=== PATIENT | male | born 1950 | race Caucasian/White ===

== ENCOUNTER 2016-02-28 17:45 | Inpatient (IN) ==
--- NOTE | 2016-02-28 17:52 | Emergency Department Note ---
Disposition Clinical Impression: Ascites, Liver cirrhosis, Anemia, Morbid obesity with BMI of 40.0-44.9, adult, End-stage renal disease on hemodialysis, Anemia of chronic disease, Hypoglycemia , Lactic acid acidosis, Diabetes mellitus, Thrombocytopenia, Abnormal EKG, Hypotension Disposition: Admitted As Inpatient Condition: Fair Referrals: NO,PCP [Non-Partnered Physician] - Forms: Work/School Release, ED Satisfaction Letter General Adult HPI - General Chief complaint: ED General Medical Stated complaint: hypotension Time Seen by Provider: 02/28/16 17:49 Source: patient, family Limitations: no limitations - History of Present Illness HPI Narrative: 65-year-old male with multiple medical problems including cirrhosis, chronic recurrent ascites, renal failure on dialysis and diabetic who reports to the emergency department from the outpatient area where he was getting paracentesis. He gets paracentesis on a weekly basis. The patient's blood pressure was low and he was feeling somewhat woozy so they sent the patient to the ED for evaluation. The patient reportedly had a catheterization done yesterday which is ultimate and no coronary stents. The patient is currently not anticoagulated. The patient denies any chest pain or shortness of breath or abdominal pain. There is no history of fever cough runny nose here pain or sore throat. Per the family the patient was dialyzed on Thursday. He had partial dialysis yesterday. There is concern because the patient has had decreased blood pressures and is somewhat symptomatic. He reports he has had have transfusions before. The patient denies any previous cardiac arrhythmia but does have a history of heart failure. There is no history of fall or injury. No headache or difficulty moving the arms or legs independently no unilateral arm or leg weakness or numbness no dysarthria or confusion. Pain Scale: 4 - Related Data Home Medications Medication Instructions Recorded Confirmed Cholecalciferol (Vitamin D3) 2,000 unit PO DAILY 01/08/15 02/27/16 [Vitamin D3] FLUoxetine HCl [Prozac] 20 mg PO QAM 01/08/15 02/27/16 Allopurinol [Zyloprim 100 MG] 50 mg PO DAILY 03/01/15 02/27/16 Calcium Acetate 1,334 mg PO TIDWM 06/19/15 02/27/16 Cyclobenzaprine HCl 10 mg PO TID PRN 06/19/15 02/27/16 Aspirin 81 mg PO DAILY 10/09/15 02/27/16 Ondansetron HCl [Zofran] 4 mg PO Q4-6H PRN 10/12/15 02/27/16 Renal Vitamin [Renal Caps Softgel] 1 mg PO DAILY 12/27/15 02/27/16 Cyclobenzaprine HCl 10 mg PO TID 02/27/16 02/27/16 Previous Rx's Medication Instructions Recorded Midodrine [ProAmatine] 10 mg PO 0800,1200,1700 #90 tablet 10/18/15 Orphenadrine [Norflex] 100 mg PO Q12HR PRN #20 tablet.er 11/18/15 Lactulose 45 ml PO TID 30 Days 01/01/16 Rifaximin [Xifaxan] 550 mg PO BID #60 tablet 01/01/16 TraMADol [Ultram] 50 mg PO QID PRN #20 tablet 01/01/16 Cephalexin [Keflex] 500 mg PO DAILY #5 capsule 02/17/16 Omeprazole [PriLOSEC] 40 mg PO BID #60 capsule. 02/17/16 Sucralfate [Carafate] 1 gm PO TID 30 Days 02/17/16 Allergies Allergy/AdvReac Type Severity Reaction Status Date / Time No Known Allergies Allergy Verified 02/27/16 08:50 All systems ED: reviewed and negative except as stated. Past Medical History - Past Medical History Medical history: Reports: coronary artery disease, CVA, diabetes, renal disease Surgical history: Reports: cholecystectomy, orthopedic, other, vasectomy, other Psychiatric history: Reports: anxiety, depression, PTSD, other - Social History Smoking Status: Never smoker Smokeless Tobacco Status: No Alcohol use: Reports: none Drug use: Reports: none Physical Exam - General Limitations: no limitations General appearance: alert - Head Head exam: atraumatic, normocephalic, normal inspection - Eye Eye exam: Present: PERRL, EOMI, scleral icterus - ENT ENT exam: normal exam, normal oropharynx, mucous membranes moist, normal external ear exam - Neck Neck exam: Present: normal inspection, full ROM, trachea midline - Chest Chest inspection: Present: symmetric chest wall rise. Absent: tenderness - Respiratory Respiratory exam: Present: prolonged expiratory phase. Absent: respiratory distress - Cardiovascular Cardiovascular exam: Present: regular rate, normal rhythm, systolic murmur - Abdominal Exam Abdominal exam: Present: soft, Non-Tender. Absent: tenderness, distention, guarding, rebound, rigidity, pulsatile mass - Extremities Exam Extremities exam: Present: normal inspection, full ROM. Absent: tenderness, normal capillary refill, pedal edema, joint swelling, calf tenderness - Expanded Lower Extremity Exam Hip/Pelvis exam: Present: other (Catheter site right femoral reveals no evidence of redness hematoma or swelling) Neurovascular/Tendon exam: Absent: motor deficit, sensory deficit, tendon deficit - Back Exam Back exam: Present: normal inspection, full ROM. Absent: tenderness, CVA tenderness (R), CVA tenderness (L) - Neurological Exam Neurological exam: Present: alert, oriented X3, CN II-XII intact. Absent: motor sensory deficit - Psychiatric Psychiatric exam: Present: normal affect, normal mood - Skin Skin exam: Present: warm, dry, intact, normal color. Absent: rash, cyanosis, diaphoresis, erythema, pallor, mottled Course Vital Signs Temperature 97.4 F L 02/28/16 17:46 Pulse Rate 63 02/28/16 17:46 Respiratory Rate 16 02/28/16 17:46 Blood Pressure 84/33 02/28/16 17:46 O2 Sat by Pulse Oximetry 100 02/28/16 17:46 Temperature 97.4 F L 02/28/16 17:46 Pulse Rate 64 02/28/16 19:05 Respiratory Rate 16 02/28/16 19:05 Blood Pressure 79/34 02/28/16 19:05 O2 Sat by Pulse Oximetry 98 02/28/16 19:05 Oxygen Delivery Oxygen Delivery Room Air Medical Decision Making - [facility] Narrative Medical decision making narrative: The patient's EKGs does not show ST elevations, his troponin slightly elevated. Reportedly had a negative heart catheterization yesterday. The patient is markedly hypoglycemic, with multiple comorbidities including diabetes and obesity renal failure dialysis therapy liver failure ascites coagulopathy and age. A stun his hypotension and weakness and acute symptomatology, I thought it would be appropriate to admit the patient to the hospital. The patient was given dextrose in the emergency department. IV access is established. The patient is currently stable. I reviewed the case with the hospitalist on-call who has accepted the patient to their care. Tansfusion for 2 U PRBC ordered. ICU bed placement. - Lab Data Lab results reviewed: Yes I reviewed the patient's lab results. Result diagrams: 02/28/16 18:26 02/28/16 18:26 Lab Results 02/28/16 02/28/16 02/28/16 Range/Units 18:26 18:26 18:26 WBC 5.7 (4.3-11.1) K/mcL RBC 1.78 L (4.19-5.50) M/mcL Hgb 6.0 L* D (12.9-16.9) g/dL Hct 17.6 L (37.5-50.1) % MCV 98.9 (83.0-100.0) fL MCH 33.7 H (28.0-33.3) pg MCHC 34.1 (31.6-35.5) g/dL RDW 23.2 H (11.5-14.5) % Plt Count 67 L (140-400) K/mcL MPV 10.2 (9.4-12.4) fL Immature Gran % 0.5 (0-4) % Seg Neutrophils % 70.3 % Lymphocytes % 12.1 % Monocytes % 13.6 % Eosinophils % 3.3 % Basophils % 0.2 % Neutrophils # 4.0 (1.6-8.9) K/mcL Lymphocytes # 0.7 (0.6-4.6) K/mcL Monocytes # 0.8 (0.0-1.3) K/mcL Eosinophils # 0.2 (0.0-0.6) K/mcL Basophils # 0.0 (0.0-0.2) K/mcL Platelet Estimate Decreased L (Normal) Large Platelets Present A (Not Present) Immature Plt Fraction 4.1 (1.1-6.1) % Hypochromasia Present A (Not Present) Anisocytosis 1+ A (Not Present) Macrocytosis Present A (Not Present) Ovalocytes 1+ A (Not Present) PT 21.3 H (9.4-12.1) Seconds INR 1.9 Sodium 137 (136-145) mEq/L Potassium 4.2 (3.5-4.5) mEq/L Chloride 98 (98-109) mEq/L Carbon Dioxide 24 (19-29) mEq/L BUN 84 H (8-26) mg/dL Creatinine 8.09 H (0.72-1.25) mg/dL Est GFR ( Amer) 8 L (> 60) Est GFR (Non-Af Amer) 7 L (> 60) BUN/Creatinine Ratio 10 (6-26) Glucose 36 L* (70-99) mg/dL Calculated Osmolality 306 H (280-300) Lactic Acid (0.5-2.2) mmol/L Calcium 8.6 (8.6-10.8) mg/dL Phosphorus 8.6 H (2.3-4.7) mg/dL Magnesium 2.6 (1.6-2.6) mg/dL Total Bilirubin (0.2-1.2) mg/dL Direct Bilirubin (0.0-0.5) mg/dL Indirect Bilirubin (0.0-1.2) mg/dL AST (5-34) Units/L ALT (0-55) Units/L Alkaline Phosphatase (38-126) Units/L Troponin I (0-0.03) ng/mL Serum Total Protein (6.0-8.3) g/dL Albumin (3.5-5.0) g/dL Globulin (2.4-3.5) g/dL Albumin/Globulin Ratio (1.1-2.2) 02/28/16 02/28/16 02/28/16 Range/Units 18:26 18:26 18:26 WBC (4.3-11.1) K/mcL RBC (4.19-5.50) M/mcL Hgb (12.9-16.9) g/dL Hct (37.5-50.1) % MCV (83.0-100.0) fL MCH (28.0-33.3) pg MCHC (31.6-35.5) g/dL RDW (11.5-14.5) % Plt Count (140-400) K/mcL MPV (9.4-12.4) fL Immature Gran % (0-4) % Seg Neutrophils % % Lymphocytes % % Monocytes % % Eosinophils % % Basophils % % Neutrophils # (1.6-8.9) K/mcL Lymphocytes # (0.6-4.6) K/mcL Monocytes # (0.0-1.3) K/mcL Eosinophils # (0.0-0.6) K/mcL Basophils # (0.0-0.2) K/mcL Platelet Estimate (Normal) Large Platelets (Not Present) Immature Plt Fraction (1.1-6.1) % Hypochromasia (Not Present) Anisocytosis (Not Present) Macrocytosis (Not Present) Ovalocytes (Not Present) PT (9.4-12.1) Seconds INR Sodium (136-145) mEq/L Potassium (3.5-4.5) mEq/L Chloride (98-109) mEq/L Carbon Dioxide (19-29) mEq/L BUN (8-26) mg/dL Creatinine (0.72-1.25) mg/dL Est GFR ( Amer) (> 60) Est GFR (Non-Af Amer) (> 60) BUN/Creatinine Ratio (6-26) Glucose (70-99) mg/dL Calculated Osmolality (280-300) Lactic Acid 2.4 H (0.5-2.2) mmol/L Calcium (8.6-10.8) mg/dL Phosphorus (2.3-4.7) mg/dL Magnesium (1.6-2.6) mg/dL Total Bilirubin 3.1 H (0.2-1.2) mg/dL Direct Bilirubin 1.7 H (0.0-0.5) mg/dL Indirect Bilirubin 1.4 H (0.0-1.2) mg/dL AST 33 (5-34) Units/L ALT 32 (0-55) Units/L Alkaline Phosphatase 113 (38-126) Units/L Troponin I 0.04 H* (0-0.03) ng/mL Serum Total Protein 5.2 L (6.0-8.3) g/dL Albumin 3.3 L (3.5-5.0) g/dL Globulin 1.9 L (2.4-3.5) g/dL Albumin/Globulin Ratio 1.7 (1.1-2.2) - Radiology Data Radiology results reviewed: Yes I reviewed the patient's radiology results.
[2016-02-28 18:34] LABS: Mean Corpuscular Volume 98.9 fL (83.0-100.0); Red Cell Distribution Width 23.2 % (11.5-14.5)
[2016-02-28 18:36] LABS: Basophils % 0.2 %; Eosinophils # 0.2 K/mcL (0.0-0.6); Eosinophils % 3.3 %; Hematocrit 17.6 % (37.5-50.1); Immature Granulocytes % 0.5 % (0-4); Immature Platelets 4.1 % (1.1-6.1); Lymphocytes # 0.7 K/mcL (0.6-4.6); Lymphocytes % 12.1 %; Mean Corpuscular HGB Conc 34.1 g/dL (31.6-35.5); Mean Corpuscular Hemoglobin 33.7 pg (28.0-33.3); Mean Platelet Volume 10.2 fL (9.4-12.4); Monocytes # 0.8 K/mcL (0.0-1.3); Monocytes % 13.6 %; Red Blood Count 1.78 M/mcL (4.19-5.50); Segmented Neutrophils % 70.3 %
[2016-02-28 18:40] LABS: INR 1.9; Prothrombin Time 21.3 Seconds (9.4-12.1)
[2016-02-28 18:49] LABS: Albumin 3.3 g/dL (3.5-5.0); Albumin/Globulin Ratio 1.7 (1.1-2.2); Bilirubin,Direct 1.7 mg/dL (0.0-0.5); Bilirubin,Indirect 1.4 mg/dL (0.0-1.2); Bilirubin,Total 3.1 mg/dL (0.2-1.2); Calcium 8.6 mg/dL (8.6-10.8); Globulin 1.9 g/dL (2.4-3.5); Magnesium 2.6 mg/dL (1.6-2.6); Phosphorous 8.6 mg/dL (2.3-4.7); Potassium 4.2 mEq/L (3.5-4.5); Total Protein 5.2 g/dL (6.0-8.3)
[2016-02-28 18:55] LABS: Platelet Count 67 K/mcL (140-400)
[2016-02-28] MEDS ORDERED: *HR* Dextrose 50 % in Water (Syg) 50 ML SYRINGE ONE (18:57)
[2016-02-28] MEDS ORDERED: *HR* Dextrose 50 % in Water (Syg) 50 ML SYRINGE IVP ONE ×2 (18:58→19:49)
[2016-02-28 18:59] LABS: Anisocytosis 1+ (Not Present); Hypochromasia Present (Not Present); Large Platelets Present (Not Present); Macrocytosis Present (Not Present); Ovalocytes 1+ (Not Present); Platelet Estimate Decreased (Normal)
[2016-02-28] MEDS ORDERED: Aspirin 325 MG TABLET PO ONE (19:00)
--- NOTE | 2016-02-28 20:06 | Internal Med History&Physical ---
Date of Encounter: 02/28/16 Time of Encounter: 20:00 Assessment and Plan (1) Postoperative hypovolemic shock Current visit: Yes Status: Acute . Qualifiers: Encounter type: initial encounter Qualified Code(s): T81.19XA - Other postprocedural shock, initial encounter (2) Orthostatic hypotension Current visit: Yes Status: Acute . (3) Acute blood loss anemia Current visit: Yes Status: Acute . (4) Anemia in chronic kidney disease (CKD) Current visit: Yes Status: Chronic . (5) Hyperammonemia Current visit: Yes Status: Acute . (6) Toxic metabolic encephalopathy Current visit: Yes Status: Acute . (7) Delirium due to conditions classified elsewhere Current visit: Yes Status: Acute . (8) Ischemia due to increased oxygen demand Current visit: Yes Status: Acute . (9) Demand ischemia of myocardium Current visit: Yes Status: Acute . (10) Elevated troponin I measurement Current visit: Yes Status: Acute . (11) Hyperphosphatemia Current visit: Yes Status: Acute . (12) Hypoglycemia associated with diabetes Current visit: Yes Status: Acute . (13) Adrenal insufficiency Current visit: Yes Status: Acute . (14) Hyperbilirubinemia Current visit: Yes Status: Acute . (15) Severe protein-calorie malnutrition Current visit: Yes Status: Acute . (16) Anemia of chronic disease Current visit: Yes Status: Chronic . (17) Lactic acid acidosis Current visit: Yes Status: Acute . (18) Thrombocytopenia Current visit: Yes Status: Chronic . (19) End-stage renal disease on hemodialysis Current visit: Yes Status: Chronic . (20) Morbid obesity with BMI of 40.0-44.9, adult Current visit: Yes Status: Chronic . (21) Symptomatic anemia Current visit: Yes Status: Acute . (22) Ascites Current visit: Yes Status: Chronic . Qualifiers: Ascites type: other type Qualified Code(s): R18.8 - Other ascites (23) Coagulopathy Current visit: Yes Status: Chronic . (24) DM (diabetes mellitus), type 2 with renal complications Current visit: Yes Status: Chronic . Qualifiers: Diabetes mellitus complication detail: with chronic kidney disease Diabetes mellitus prison insulin use: without prison use Chronic kidney disease stage: on chronic dialysis Qualified Code(s): E11.22 - Type 2 diabetes mellitus with diabetic chronic kidney disease; N18.6 - End stage renal disease; Z99.2 - Dependence on renal dialysis (25) Liver cirrhosis secondary to nonalcoholic steatohepatitis (MONTANO) Current visit: Yes Status: Chronic . (26) Hepatic encephalopathy Current visit: Yes Status: Acute . Internal Medicine - H&P: HPI Chief complaint: Generalized weakness. Low blood pressure Admitted From: Emergency Dept Plans for Post Hospital Care: Home History of present illness: Mr. Ponce is a 65 year old male [facility] patient with history significant for MONTANO-induced cirrhotic liver disease, portal hypertension with ascites, weekly/ biweekly paracenteses, H/O hepatitis B, GERD/portal hypertensive gastropathy/ antral vascular ectasia, PUD/duodenitis/GI bleed, nonobst 3vCAD/diatolicCHF/ LVEF65%, osteoarthritis, osteoporosis, gout/hyperuricemia, vitamin D deficiency , postural hypotension, type 2 diabetes mellitus, ESRD hemodialysis dependent ( Thursday), hepatitis, H/O CVA/TIA, H/O seizures, PTSD, depression and anxiety, hepatic encephalopathy, H/O SBP, anemia of chronic disease, hypertension, dyslipidemia, morbid obesity, nonsmoker The patient was visited and interviewed and examined. The patient is admitted to [facility] via the emergency department when he presented with concerns for low blood pressure the patient was referred from the outpatient interventional radiology procedure area. The patient was undergoing elective ultrasound-guided paracentesis. During the procedure total of 10,800 mL of ascites was removed. The patient obtains scheduled paracenteses on a weekly basis. Vital signs obtained prior to and after procedure found blood pressures to trend low with the patient reporting a feeling of generalized weakness and lightheadedness/wooziness and was sent to the ED for further evaluation. The patient had underwent left heart catheterization the day prior to admission which found no significant obstructive coronary artery disease ( angioplasty and stent placements not required. Patient is currently not anticoagulated. End-stage renal disease hemodialysis dependent normally receives Thursday dialysis and was formally dialyzed on Thursday plus a partial dialysis was performed on Thursday in anticipation of cardiac catheterization. He did not undergo hemodialysis on the day of admission. He reported a history of previous symptomatic anemia requiring transfusion therapy. He acknowledges that he also receives intravenous iron during his hemodialysis run but is unaware of whether or not this also includes Aranesp therapy during dialysis as well. He denied any evidence for active bleeding events (epistaxis hemoptysis hematemesis melena bright red blood per rectum hematochezia hematuria, etc.). Denies any significant prior history of cardiac arrhythmias or significant congestive heart failure complaints. Denies any recent history of fall or injury. Denies fevers chills sweats. Denies any upper respiratory complaints. Denies chest pain abdominal pain and flank pain headache. Denies any unilateral weakness vision deficit slurring of speech or acute confusion. Allergies chronic diverticulitis pain/discomfort at a 4/10 severity acknowledges compliance with current medications nicely dietary recreational or medication-related indiscretions. Findings in the ED: Temperature 97.4 pulse 63 respirations 16 BP 79-84/34 O2 saturation 90% room air. WBC 5.7 hemoglobin 6 hematocrit 17.6 platelets 67,000. RDW 23.2. MCH 33.7. Differential benign. PT 21.3 INR 1.9. Metabolic panel notes a BUN 84 creatinine 8.09 GFR 7. Glucose 36 osmolality 306. Phosphorus 8.6 magnesium 2.6. Lactic acid 2.4. Hepatic function total protein 5.2 albumin 3.3 globulin 1.9. Total bilirubin 3.1 direct 1.7 indirect 1.4. Troponin 0.04. Chest x-ray demonstrates no acute or active cardiopulmonary process. Central line in stable position. Lungs without acute process. No effusion pneumothorax or focal infiltrate. Cardiac and mediastinal silhouette stable. Osseous structures stable. Preliminary impression suggests symptomatic hypovolemic shock due to combined acute on chronic blood loss symptomatic anemia plus significant volume loss following large volume paracentesis. No evidence clearly apparent of intravenous albumin administration to offset volume deficit following paracentesis. MONTANO-induced cirrhotic liver disease with portal systemic hypertension and severe ascitic fluid reaccumulation requiring weekly elective paracenteses (Child Rabago score class C, MELD-Na score 33, DF score 40.7 ). This on top of the patient's scheduled hemodialysis 3 times weekly. Screening studies did not presence of systemic inflammatory response syndrome or sepsis in the current setting. Coagulopathy secondary to liver disease as well as thrombocytopenia, severe protein caloric malnutrition, transaminitis/ hyperbilirubinemia, etc. also noted. A type II diabetic the patient is managed primarily with renal diet plus Starlix taken orally with each meal. Although he is aware that he is to remain on a renal diet and be restrictive of sodium intake his acknowledges that he is not that vigilant and salt restriction. In concert with severe end-stage renal disease noted abnormalities include hyper phosphatemia, lactic acidemia, anemia of chronic disease,etc. an elevation in this setting may be spurious due to significant renal failure or an indicator of demand ischemia in the setting of patient's severe chronic illness. He denies however any chest pain complaints. Severe hypoglycemia is of concern especially given management only with an oral agent. Given the chronicity of patient's illness and multisystem derangements it is likely that he is now manifesting a degree of adrenal insufficiency. This will be investigated further. Given the patient is presenting concerns, clinical findings, frailty and comorbidities , he is at risk for further acute clinical decline-morbidity in this presentation. Workup and treatments will proceed comprehensively. Cumulative laboratory and radiographic data base was reviewed, considered and discussed. Pertinent ancillary medical records including ECW and PCI documentation, when available, was reviewed and considered. Given the patient's presenting concerns, past medical history, clinical findings and symptoms, he is admitted at this time will undergo further evaluation and disposition. Orders were written as per the computerized physician production recorder system.......................................................................... .................... Consultative opinion and will be sought as clinical circumstances justify. Initial consultative request has been submitted to nephrology/dialysis team. Pain management needs will be addressed. Laboratory and radiographic data base will be updated as appropriate. Studies include: cardiac injury panel, BNP, metabolic and hematologic panel, magnesium, phosphorus, ionized calcium, thyroid panel, lipid profile, A1c, C-peptide, CRP, sedimentation rate, venous blood gas, type and screen, ammonia, UDS, lactic acid , random am and pm cortisol, Hemoccult stool, serologies, etc. Precautions: Aspiration, fall, delirium protocol/surveillance initiated. Telemetry with continuous hemodynamic monitoring and pulse oximetry initiated. Orthostatic vital signs. Empiric antibody coverage: Intravenous Rocephin pending culture data. Special studies: Chest x-ray, telemetry, EKG. Pulmonary toilet: Incentive spirometry. When necessary aerosol bronchodilator, mucolytic, antitussive. When necessary supplemental oxygen. Corticosteroid therapy when necessary. CPAP/BiPAP supplemental oxygen delivery when necessary. Aerosol Mucomyst therapy when necessary. Fluid and electrolyte repletion efforts will proceed. Careful attention to fluid balance and renal recovery will be emphasized. Avoidance of nephrotoxic exposure and adverse drug drug interaction in the setting of impaired renal function will be monitored closely. Intravenous albumin 5% infusions x3 in recognition of severe hypoalbuminemia/ protein caloric malnutrition and concomitant fluid shifts with extravascular third spacing and intravascular volume depletion. Transfusion therapy of packed RBCs to achieve a stable hemoglobin measurement greater than 8.5. Pending random cortisol a.m. and p.m. measurements. A cosyntropin challenge test may be required to confirm adrenal insufficiency diagnosis and justify initiation of chronic corticosteroid repletion. Acute coronary syndrome protocols/surveillance initiated. DVT and PUD prophylaxis initiated: PPI therapy, intermittent pneumatic cuffs/ TEDs. Subcutaneous heparin was held due to thrombocytopenia and coagulopathy secondary to liver disease. Early ambulation will be encouraged. Immunization updates recommended. Influenza and pneumococcal vaccinations as part of ongoing preventative healthcare recommendations strongly recommended. Hepatic encephalopathy protocols initiated. Continuance of oral lactulose therapy to achieve 2-4 formed stools daily initiated. Plus rifaximin therapy twice daily initiated. Trending of ammonia levels will be initiated. Smoking cessation counseling briefly addressed. Patient is a nonsmoker. Advanced care directive discussion briefly addressed. Patient does not declare any healthcare restrictions at this time. Cardiovascular risk appraisal and cardiovascular risk reduction efforts will be emphasized. Physical and occupational therapy may be consulted to assess patient's functional capacity of progress mobility as his clinical circumstances permit. Sliding scale insulin coverage when necessary, ADA/renal dietary restraint and schedule an as-needed basis fingerstick glucose assessments were initiated. Nutrition/diabetes education counseling may be considered if circumstances justify. Outpatient medication schedules will be reviewed confirmed and facilitated as appropriate. Reconciliation of home treatments including adjustments, substitutions and reintroduction into the treatment regimen will address necessary maintenance therapies for chronic pre-existing medical conditions. Plan of care has been reviewed and discussed in detail with the patient and family in attendance. Questions addressed to their mutual satisfaction and reassurance. Hospital course is dependent on clinical findings, treatment response and potential consultative interventions. Patient is at risk for further acute clinical decline and morbidity due to presenting chief complaints, clinical findings and comorbid conditions in the setting of having multiorgan derangements. Condition is serious. Prognosis is cautiously optimistic. CODE STATUS is full. Past Med Surg Social Fam HX - Past Medical History Source: old records reviewed Medical history: arthritis, cirrhosis, CHF, coronary artery disease, CVA, diabetes, dialysis, GERD, GI bleed, hepatitis, hyperlipidemia, hypertension, liver disease, osteoporosis, peripheral artery disease, renal disease, seizures , TIA, venous stasis, other Psychiatric history: anxiety, depression, PTSD, other - Past Surgical History Surgical History: cholecystectomy, orthopedic, other, vascular surgery, vasectomy, other (EGD. Colonoscopy.) - Social History Smoking Status: Never smoker Smokeless Tobacco Status: No Alcohol use: none Drug use: none Occupational status: disabled Current living situation: With Family Activity Level: Mostly sedentary Recent Out of Country Travel Within the Last 8 Weeks: No Exposure or Possible Exposure to Illness During Travel: No - Family History Mother Living Status: Hx Family Cardiac Disorders: Yes (chf) Father Living Status: Hx Family Endocrine Disorder: Yes (diabetes) Hx Family Neurologic Disorders: Yes (strokes, Alzheimers) Internal Medicine - H&P: Meds Cholecalciferol (Vitamin D3) [Vitamin D3] 2,000 unit PO DAILY 01/08/15 [History] FLUoxetine HCl [Prozac] 20 mg PO QAM 01/08/15 [History] Allopurinol [Zyloprim 100 MG] 50 mg PO DAILY 03/01/15 [History] Calcium Acetate 1,334 mg PO TIDWM 06/19/15 [History] Cyclobenzaprine HCl 10 mg PO TID PRN 06/19/15 [History] Aspirin 81 mg PO DAILY 10/09/15 [History] Ondansetron HCl [Zofran] 4 mg PO Q4-6H PRN 10/12/15 [History] Midodrine [ProAmatine] 10 mg PO 0800,1200,1700 #90 tablet 10/18/15 [Rx] Orphenadrine [Norflex] 100 mg PO Q12HR PRN #20 tablet.er 11/18/15 [Rx] Renal Vitamin [Renal Caps Softgel] 1 mg PO DAILY 12/27/15 [History] Lactulose 45 ml PO TID 30 Days 01/01/16 [Rx] Rifaximin [Xifaxan] 550 mg PO BID #60 tablet 01/01/16 [Rx] TraMADol [Ultram] 50 mg PO QID PRN #20 tablet 01/01/16 [Rx] Cephalexin [Keflex] 500 mg PO DAILY #5 capsule 02/17/16 [Rx] Omeprazole [PriLOSEC] 40 mg PO BID #60 capsule. 02/17/16 [Rx] Sucralfate [Carafate] 1 gm PO TID 30 Days 02/17/16 [Rx] Nateglinide [Starlix] 60 mg PO TID 02/28/16 [History] Allergies No Known Allergies Allergy (Verified 02/27/16 08:50) All Systems PM: A 10-system review of systems was performed and is negative for pertinent findings except as documented above in the HPI. - Constitutional Constitutional: as per HPI, malaise, weakness, weight gain, other, no chills, no fever(s), no night sweats - EENT Eyes: as per HPI, no change in vision, no discharge, no pain, no photophobia Ears: as per HPI, no ear discharge, no ear pain, no tinnitus Nose, mouth and throat: as per HPI, no dysphagia, no nasal discharge, no neck pain, no sore throat - Cardiovascular Cardiovascular ROS IM: as per HPI, no chest pain, no diaphoresis, no dyspnea, no lightheadedness, no palpitations, no syncope - Respiratory Respiratory: as per HPI, dyspnea, dyspnea on exertion, other, no cough, no wheezing, no pain on inspiration, no chest congestion, no excessive phlegm production, no change in phlegm color, no pain with cough - Gastrointestinal Gastrointestinal: as per HPI, abdominal pain, bloating, other, no coffee ground emesis, no diarrhea, no heartburn, no hematemesis, no hematochezia, no loose stools, no melena, no nausea, no vomiting - Genitourinary Genitourinary ROS male: as per HPI, other (ANURIA) - Musculoskeletal Musculoskeletal ROS IM: as per HPI, no numbness, no tingling - Integumentary Integumentary IM: as per HPI, no rash, no unusual bruising - Neurological Neurological ROS: as per HPI, other, no confusion, no convulsions, no focal weakness, no numbness, no tingling, no tremor(s) - Psychiatric Psychiatric: as per HPI, other - Endocrine Endocrine IM: as per HPI - Hematologic/Lymphatic Hematologic/Lymphatic: as per HPI, no easy bruising - Allergic/Immunologic Allergic/Immunologic: as per HPI - Constitutional Vitals: Temp Pulse Resp BP Pulse Ox 97.4 F L 62 18 77/33 96 02/28/16 17:46 02/28/16 19:46 02/28/16 19:46 02/28/16 19:46 02/28/16 19:46 General appearance: Present: cooperative, mild distress, A&O X 3, obese, answers questions appropriately - Head Head exam: Present: atraumatic, normal inspection, normocephalic - Eye Eye exam: Present: EOMI, PERRL, conjuntiva pink, sclera anicteric Pupils: Present: normal accommodation, PERRL - ENT ENT exam: Present: mucous membranes moist, normal external ear exam, normal oropharynx - Neck Neck exam general surgery: Present: full ROM, supple, trachea midline. Absent: lymphadenopathy, tenderness, nuchal rigidity - Respiratory Respiratory exam: Present: decreased breath sounds, CTAB. Absent: accessory muscle use, rales, rhonchi, stridor, wheezes - Cardiovascular Cardiovascular exam: Present: distant heart sounds, RRR, +S1, +S2. Absent: diastolic murmur, gallop, rubs, systolic murmur - GI/Abdominal GI/Abdominal exam: Present: distended, normal bowel sounds, soft, no peritoneal signs. Absent: guarding, rebound, tenderness - Extremities Exam Extremities exam: Present: full ROM, warm, radial pulses palpable and symetrical. Absent: calf tenderness, cyanotic, pedal edema - Neurological Exam Neurological exam: Present: alert, altered, CN II-XII intact, oriented X3, no focal deficits. Absent: pronater drift, facial droop, speech deficit - Expanded Neurological Exam Neurological exam expanded: Present: ataxia, inattentive, protecting the airway , tremor. Absent: expressive aphasia, receptive aphasia Patient oriented to: Present: person, place, time Speech: Present: fluid speech Coma Scale Eye Opening: Spontaneous Coma Scale Motor Response: Obeys Commands Coma Scale Verbal Response: Confused Coma Scale Total: 14 - Psychiatric Psychiatric exam: Present: normal affect, normal mood - Expanded Psychiatric Exam Focused psych exam: Present: restlessness - Skin Skin exam: Present: dry, intact, warm. Absent: petechiae, rash, urticaria, vesicles Internal Med - H&P Results - Labs CBC & Chem 7: 02/28/16 18:26 02/28/16 18:26 Labs: Short CBC 02/28/16 Range/Units 18:26 WBC 5.7 (4.3-11.1) K/mcL Hgb 6.0 L* D (12.9-16.9) g/dL Hct 17.6 L (37.5-50.1) % Plt Count 67 L (140-400) K/mcL Neutrophils # 4.0 (1.6-8.9) K/mcL BMP 02/28/16 18:26 Sodium 137 Potassium 4.2 Chloride 98 Carbon Dioxide 24 BUN 84 H Creatinine 8.09 H Glucose 36 L* Calcium 8.6 Cardiac Enzymes 02/28/16 Range/Units 18:26 Troponin I 0.04 H* (0-0.03) ng/mL Liver Function 02/28/16 Range/Units 18:26 Total Bilirubin 3.1 H (0.2-1.2) mg/dL Direct Bilirubin 1.7 H (0.0-0.5) mg/dL AST 33 (5-34) Units/L ALT 32 (0-55) Units/L Alkaline Phosphatase 113 (38-126) Units/L Albumin 3.3 L (3.5-5.0) g/dL - Impressions ITS Impressions Chest X-Ray 02/28/16 17:50 IMPRESSION: No acute process. Stable examination without overt pulmonary edema. D/ / Aguilar Osborn MD / Aguilar Osborn MD Interpreting Provider: Aguilar Osborn MD Vital Signs Temp Pulse Resp BP Pulse Ox 02/28/16 21:34 98.4 F 58 18 84/35 95 02/28/16 20:46 97.7 F 76 21 84/37 94 L 02/28/16 20:30 97.4 F L 73 16 81/37 96 02/28/16 20:18 16 81/34 01/05/17 20:04 63 16 72/36 100 02/28/16 19:46 62 18 77/33 96 02/28/16 19:05 64 16 79/34 98 02/28/16 18:24 64 16 76/37 99 02/28/16 17:46 97.4 F L 63 16 84/33 100 Intake and Output 02/28/16 02/28/16 02/28/16 07:59 15:59 23:59 Intake Total 0 / 0 Balance 0 / 0 Intake: Blood Product 0 / 0 Rbcs Leuko Poor As-1 0 / 0 Unit [id number] Other: Weight 86.3 kg Blood Glucose* 77 Patient Weight 02/28/16 23:59 Weight 86.3 kg Short CBC 02/28/16 Range/Units 18:26 WBC 5.7 (4.3-11.1) K/mcL Hgb 6.0 L* D (12.9-16.9) g/dL Hct 17.6 L (37.5-50.1) % Plt Count 67 L (140-400) K/mcL Neutrophils # 4.0 (1.6-8.9) K/mcL BMP 02/28/16 Range/Units 18:26 Sodium 137 (136-145) mEq/L Potassium 4.2 (3.5-4.5) mEq/L Chloride 98 (98-109) mEq/L Carbon Dioxide 24 (19-29) mEq/L BUN 84 H (8-26) mg/dL Creatinine 8.09 H (0.72-1.25) mg/dL Glucose 36 L* (70-99) mg/dL Calcium 8.6 (8.6-10.8) mg/dL Cardiac Enzymes 02/28/16 02/28/16 Range/Units 20:46 18:26 Troponin I 0.03 0.04 H* (0-0.03) ng/mL Liver Function 02/28/16 Range/Units 18:26 Total Bilirubin 3.1 H (0.2-1.2) mg/dL Direct Bilirubin 1.7 H (0.0-0.5) mg/dL AST 33 (5-34) Units/L ALT 32 (0-55) Units/L Alkaline Phosphatase 113 (38-126) Units/L Albumin 3.3 L (3.5-5.0) g/dL 02/28/16 20:46 VBG pH 7.41 VBG pCO2 41 VBG pO2 126 H VBG HCO3 26.0 Abnormal lab results RBC 1.78 M/mcL (4.19-5.50) L 02/28/16 18:26 Hgb 6.0 g/dL (12.9-16.9) L* D 02/28/16 18:26 Hct 17.6 % (37.5-50.1) L 02/28/16 18:26 MCH 33.7 pg (28.0-33.3) H 02/28/16 18:26 RDW 23.2 % (11.5-14.5) H 02/28/16 18: Plt Count 67 K/mcL (140-400) L 02/28/16 18: Platelet Estimate Decreased (Normal) L 02/28/16 18:26 Large Platelets Present (Not Present) A 02/28/16 18:26 Hypochromasia Present (Not Present) A 02/28/16 18:26 Anisocytosis 1+ (Not Present) A 02/28/16 18:26 Macrocytosis Present (Not Present) A 02/28/16 18: Ovalocytes 1+ (Not Present) A 02/28/16 18: PT 21.3 Seconds (9.4-12.1) H 02/28/16 18:26 VBG pO2 126 mmHg (25-40) H 02/28/16 20:46 BUN 84 mg/dL (8-26) H 02/28/16 18:26 Creatinine 8.09 mg/dL (0.72-1.25) H 02/28/16 18:26 Est GFR ( Amer) 8 (> 60) L 02/28/16 18:26 Est GFR (Non-Af Amer) 7 (> 60) L 02/28/16 18:26 Glucose 36 mg/dL (70-99) L* 02/28/16 18:26 Calculated Osmolality 306 (280-300) H 02/28/16 18:26 Lactic Acid 2.4 mmol/L (0.5-2.2) H 02/28/16 18:26 Phosphorus 8.6 mg/dL (2.3-4.7) H 02/28/16 18:26 Total Bilirubin 3.1 mg/dL (0.2-1.2) H 02/28/16 18:26 Direct Bilirubin 1.7 mg/dL (0.0-0.5) H 02/28/16 18:26 Indirect Bilirubin 1.4 mg/dL (0.0-1.2) H 02/28/16 18:26 Ammonia 102 mcmol/L (18-72) H 02/28/16 19:15 Serum Total Protein 5.2 g/dL (6.0-8.3) L 02/28/16 18:26 Albumin 3.3 g/dL (3.5-5.0) L 02/28/16 18:26 Globulin 1.9 g/dL (2.4-3.5) L 02/28/16 18:26 Allergies Allergy/AdvReac Type Severity Reaction Status Date / Time No Known Allergies Allergy Verified 02/27/16 08:50 Laboratory Last Values WBC 5.7 K/mcL (4.3-11.1) 02/28/16 18:26 RBC 1.78 M/mcL (4.19-5.50) L 02/28/16 18:26 Hgb 6.0 g/dL (12.9-16.9) L* D 02/28/16 18:26 Hct 17.6 % (37.5-50.1) L 02/28/16 18:26 MCV 98.9 fL (83.0-100.0) 02/28/16 18:26 MCH 33.7 pg (28.0-33.3) H 02/28/16 18:26 MCHC 34.1 g/dL (31.6-35.5) 02/28/16 18:26 RDW 23.2 % (11.5-14.5) H 02/28/16 18:26 Plt Count 67 K/mcL (140-400) L 02/28/16 18:26 MPV 10.2 fL (9.4-12.4) 02/28/16 18:26 Immature Gran % 0.5 % (0-4) 02/28/16 18:26 Seg Neutrophils % 70.3 % 02/28/16 18:26 Lymphocytes % 12.1 % 02/28/16 18:26 Monocytes % 13.6 % 02/28/16 18:26 Eosinophils % 3.3 % 02/28/16 18:26 Basophils % 0.2 % 02/28/16 18:26 Neutrophils # 4.0 K/mcL (1.6-8.9) 02/28/16 18:26 Lymphocytes # 0.7 K/mcL (0.6-4.6) 02/28/16 18:26 Monocytes # 0.8 K/mcL (0.0-1.3) 02/28/16 18: Eosinophils # 0.2 K/mcL (0.0-0.6) 02/28/16 18: Basophils # 0.0 K/mcL (0.0-0.2) 02/28/16 18:26 Platelet Estimate Decreased (Normal) L 02/28/16 18: Large Platelets Present (Not Present) A 02/28/16 18: Immature Plt Fraction 4.1 % (1.1-6.1) 02/28/16 18: Hypochromasia Present (Not Present) A 02/28/16 18: Anisocytosis 1+ (Not Present) A 02/28/16 18:26 Macrocytosis Present (Not Present) A 02/28/16 18: Ovalocytes 1+ (Not Present) A 02/28/16 18: PT 21.3 Seconds (9.4-12.1) H 02/28/16 18:26 INR 1.9 02/28/16 18:26 VBG pH 7.41 pH Units (7.32-7.42) 02/28/16 20:46 VBG pCO2 41 mmHg (41-51) 02/28/16 20:46 VBG pO2 126 mmHg (25-40) H 02/28/16 20:46 VBG HCO3 26.0 mEq/L (21-27) 02/28/16 20:46 Sodium 137 mEq/L (136-145) 02/28/16 18:26 Potassium 4.2 mEq/L (3.5-4.5) 02/28/16 18:26 Chloride 98 mEq/L (98-109) 02/28/16 18:26 Carbon Dioxide 24 mEq/L (19-29) 02/28/16 18:26 BUN 84 mg/dL (8-26) H 02/28/16 18:26 Creatinine 8.09 mg/dL (0.72-1.25) H 02/28/16 18:26 Est GFR ( Amer) 8 (> 60) L 02/28/16 18:26 Est GFR (Non-Af Amer) 7 (> 60) L 02/28/16 18:26 BUN/Creatinine Ratio 10 (6-26) 02/28/16 18:26 Glucose 36 mg/dL (70-99) L* 02/28/16 18:26 POC Glucose 77 (58-89) 02/28/16 21:28 Calculated Osmolality 306 (280-300) H 02/28/16 18:26 Lactic Acid 2.4 mmol/L (0.5-2.2) H 02/28/16 18:26 Calcium 8.6 mg/dL (8.6-10.8) 02/28/16 18:26 Phosphorus 8.6 mg/dL (2.3-4.7) H 02/28/16 18:26 Magnesium 2.6 mg/dL (1.6-2.6) 02/28/16 18:26 Total Bilirubin 3.1 mg/dL (0.2-1.2) H 02/28/16 18:26 Direct Bilirubin 1.7 mg/dL (0.0-0.5) H 02/28/16 18:26 Indirect Bilirubin 1.4 mg/dL (0.0-1.2) H 02/28/16 18:26 AST 33 Units/L (5-34) 02/28/16 18:26 ALT 32 Units/L (0-55) 02/28/16 18:26 Alkaline Phosphatase 113 Units/L (38-126) 02/28/16 18:26 Ammonia 102 mcmol/L (18-72) H 02/28/16 19:15 Troponin I 0.03 ng/mL (0-0.03) 02/28/16 20:46 Serum Total Protein 5.2 g/dL (6.0-8.3) L 02/28/16 18:26 Albumin 3.3 g/dL (3.5-5.0) L 02/28/16 18:26 Globulin 1.9 g/dL (2.4-3.5) L 02/28/16 18:26 Albumin/Globulin Ratio 1.7 (1.1-2.2) 02/28/16 18:26 Random Cortisol 6.1 mcg/dl 02/28/16 20:46 Blood Type A POSITIVE 02/28/16 19:15 Antibody Screen NEGATIVE 02/28/16 19:15 Crossmatch See Detail 02/28/16 19:15
[2016-02-28] MEDS ORDERED: Benzonatate 100 MG CAPSULE PO PRN (20:13)
[2016-02-28] MEDS ORDERED: Ipratropium/Albuterol Neb 3 ML IH PRN (20:13)
[2016-02-28] MEDS ORDERED: *HR* OxyCODONE Immed Rel 5 MG TABLET PO PRN (20:17)
[2016-02-28] MEDS ORDERED: Naloxone 0.4 MG/ML INJ IVP PRN (20:17)
[2016-02-28] MEDS ORDERED: *HR* HYDROmorphone (PF) 1 MG/ML SYRINGE IVP PRN (20:17)
[2016-02-28] MEDS ORDERED: *HR* Promethazine 25 MG/ML VIAL IVP PRN (20:17)
[2016-02-28] MEDS ORDERED: 0.9 % Sodium Chloride 500 ML IVC SCH (20:30)
[2016-02-28] MEDS ORDERED: 0.9 % Sodium Chloride 250 ML ONE (20:38)
[2016-02-28] MEDS ORDERED: *HR* Dextrose 50 % in Water (Vial) 50 ML VIAL IVP ONE (20:44)
[2016-02-28] MEDS ORDERED: D5% in 0.45% NACL 1,000 ML IVC SCH (20:45)
[2016-02-28 20:54] LABS: VBG PH 7.41 pH Units (7.32-7.42)
[2016-02-28] MEDS ORDERED: Dextrose Gel 15 GM PO PRN (21:52)
[2016-02-28] MEDS ORDERED: D5% in Water 1,000 ML IV PRN (21:52)
[2016-02-28] MEDS: Dextrose Gel 15 GM PO PRN (23:36)
[2016-02-28] MEDS: Lactulose Oral Soln 20 GM/30 ML UDC PO SCH (23:55)
[2016-02-28] MEDS: Famotidine 20 MG TABLET PO SCH (23:55)
[2016-02-29] MEDS: *HR* Dextrose 50 % in Water (Syg) 50 ML SYRINGE IVP PRN ×7 (00:02→06:28)
[2016-02-29] MEDS ORDERED: D5% in 0.9% NACL 1,000 ML IVC SCH (00:45)
[2016-02-29] MEDS: Calcium Acetate 667 MG CAPSULE PO SCH ×3 (05:47→17:00)
[2016-02-29 06:24] LABS: Hemoglobin A1C 4.3 %
[2016-02-29] MEDS: Dextrose Gel 15 GM PO PRN (06:24)
[2016-02-29 06:25] LABS: Ionized Calcium 1.01 mmol/L (1.15-1.35)
[2016-02-29 06:34] LABS: Calcium 8.2 mg/dL (8.6-10.8); Chol/HDL Ratio 6.9 (0-4.9); Potassium 4.2 mEq/L (3.5-4.5); Uric Acid 5.5 mg/dL (3.5-7.2)
[2016-02-29] MEDS ORDERED: Calcium Gluconate 1,000 MG in D5% in Water 100 ML IVPB ONE (06:53)
[2016-02-29 06:54] LABS: Hematocrit 21.1 % (37.5-50.1); Hemoglobin 7.3 g/dL (12.9-16.9)
[2016-02-29 07:20] LABS: Thyroid Stimulating Hormone 1.492 mcIU/mL (0.350-4.840)
[2016-02-29] MEDS ORDERED: D10% in Water 500 ML IV SOLUTION IVC STA ×2 (07:35→18:40)
[2016-02-29] MEDS: Lactulose Oral Soln 20 GM/30 ML UDC PO SCH ×3 (07:43→20:57)
[2016-02-29] MEDS: Cholecalciferol (D-3) 1,000 UNIT TABLET PO SCH (07:44)
[2016-02-29] MEDS: Famotidine 20 MG TABLET PO SCH (07:44)
[2016-02-29] MEDS: Renal Vitamin 1 MG CAPSULE PO SCH (07:44)
[2016-02-29] MEDS: Aspirin 81 MG TAB.CHEW PO SCH (07:44)
[2016-02-29] MEDS: FLUoxetine 20 MG CAPSULE PO SCH (07:44)
--- NOTE | 2016-02-29 07:53 | Internal Med Progress Note ---
Date of Encounter: 02/29/16 Time of Encounter: 07:00 - Assessment and plan (1) Hypoglycemia Current Visit: Yes Status: Acute Assessment and plan: Possible due to decrease oral intaker but will check ,Check pro insulin level , C peptide, cortisol level, concern for sepsis check blood cultures, due to low Blood sugar start D10 , close observation of lytes (2) Anemia Current Visit: Yes Status: Chronic Assessment and plan: due to CKD no signs of acitis GI bleeding , Nephrology consult may need to be on aranesp check iron studies and B12 levels as well Qualifiers: Anemia type: unspecified type Qualified Code(s): D64.9 - Anemia, unspecified (3) ESRD (end stage renal disease) Current Visit: Yes Status: Chronic Assessment and plan: nephrology consult - Time Spent With Patient 25 - 35 minutes - Subjective Interval history: Pt c.o generalized weakness , overnight low blood sugar, and hypotensive - Constitutional Vitals: Temp Pulse Resp BP Pulse Ox 97.4 F L 61 16 81/38 99 02/29/16 07:37 02/29/16 07:37 02/29/16 07:37 02/29/16 07:37 02/29/16 07:37 General appearance: Present: cooperative, A&O X 2, mild distress, obese, answers questions appropriately. Absent: A&O X 3 - ENT Additional comments: Pale conjuntiva - Respiratory Respiratory exam: Present: decreased breath sounds Additional comments: decrease breath sounds at the bases - Cardiovascular Cardiovascular exam: Present: RRR, +S1, +S2 - GI/Abdominal Additional comments: + asciitis + splenomegaly - Extremities Exam Additional comments: mild trace pedal edema Internal Medicine: Result - Labs CBC & Chem 7: 02/29/16 06:08 02/29/16 06:08 Labs: Short CBC 02/29/16 Range/Units 06:08 Hgb 7.3 L (12.9-16.9) g/dL Hct 21.1 L (37.5-50.1) % BMP 02/29/16 06:08 Sodium 137 Potassium 4.2 Chloride 98 Carbon Dioxide 23 BUN 89 H Creatinine 8.47 H Glucose 39 L* Calcium 8.2 L Cardiac Enzymes 02/28/16 02/29/16 Range/Units 20:46 06:08 Troponin I 0.03 0.08 H* (0-0.03) ng/mL - ABG Interpretation ABG results: PT/INR, D-dimer PT 21.3 Seconds (9.4-12.1) H 02/28/16 18:26 Consult Discharge Plan - Plan [facility]errals: [facility] [Primary Care Provider] - (Needs appointment made with [facility] provider)
[2016-02-29] MEDS ORDERED: Cefotaxime 1,000 MG in D5% in Water (Mini-Bag+) 100 ML IVPB ONE (08:20)
[2016-02-29 08:56] LABS: Prothrombin Time 22.4 Seconds (9.4-12.1)
[2016-02-29] MEDS ORDERED: Pantoprazole 40 MG VIAL IVP SCH (09:00)
[2016-02-29] MEDS ORDERED: Hydrocortisone 10 MG TABLET PO SCH (09:00)
[2016-02-29] MEDS ORDERED: cephALEXin 500 MG CAPSULE PO SCH (09:00)
[2016-02-29] MEDS ORDERED: *HR* Heparin 10,000 UNIT/10 ML VIAL IV PRN (09:50)
[2016-02-29] MEDS ORDERED: 0.9 % Sodium Chloride 250 ML IV PRN (09:50)
[2016-02-29] MEDS ORDERED: 0.9 % Sodium Chloride 1,000 ML PRIME SCH (10:00)
--- NOTE | 2016-02-29 10:42 | Nephrology Consult Note ---
Date of Encounter: 02/29/16 Time of Encounter: 10:24 Assessment and Plan (1) Elevated troponin I measurement Current Visit: Yes Status: Acute Patient with recent cath negative for significant CAD. (2) Hypotension Current Visit: Yes Status: Acute Patient with chronic hypotension. Currently asysmptomatic. No fluid removal with dialysis. Qualifiers: Qualified Code(s): I95.9 - Hypotension, unspecified (3) Anemia Current Visit: Yes Status: Chronic Per primary team. Evaluate for bleeding. Transfuse as needed. Qualifiers: Anemia type: unspecified type Qualified Code(s): D64.9 - Anemia, unspecified (4) ESRD (end stage renal disease) Current Visit: Yes Status: Chronic HD MWF. No fluid removal secondary to hypotension. (5) Morbid obesity with BMI of 40.0-44.9, adult Current Visit: Yes Status: Chronic Outpatient management. (6) Encephalopathy Current Visit: Yes Status: Acute Hepatic encephalopathy vs. early infection. Agree with empiric antibiotics for now. Treat for hepatic encephalopathy as well. History of Present Illness - Reason for Consult Consult date: 02/29/16 end stage renal disease - Chief Complaint Hypotension - History of Present Illness Mr. Ponce is a 65 yo man with multiple medical problems most notably for end stage liver disease and end stage renal disease who presents with hypotension after large volume paracentesis. The history is obtained from review of the electronic chart and conversation with the patient (who seems slightly confused) . Patient at the time of the interview denies chest pain, shortness of breath, or lower extremity edema. He has had problems with hypoglycemia and is on an infusion of D10. [facility] were consulted for on going dialysis needs. I spoke with Dr. Lucas who started empiric coverage secondary to patient's hypoglycemia and confusion this am. Past Med Surg Social Fam HX - Past Medical History Medical history: arthritis, cirrhosis, CHF, coronary artery disease, CVA, diabetes, dialysis, GERD, GI bleed, hepatitis, hyperlipidemia, hypertension, liver disease, osteoporosis, peripheral artery disease, renal disease, seizures , TIA, venous stasis, other Psychiatric history: anxiety, depression, PTSD, other - Past Surgical History Surgical History: cholecystectomy, orthopedic, other, vascular surgery, vasectomy, other (EGD. Colonoscopy.) - Social History Smoking Status: Never smoker Smokeless Tobacco Status: No Alcohol use: none Drug use: none - Family History Mother Living Status: Hx Family Cardiac Disorders: Yes (chf) Father Living Status: Hx Family Cardiac Disorders: Yes (Strokes) Hx Family Endocrine Disorder: Yes (diabetes) Hx Family Neurologic Disorders: Yes (strokes, Alzheimers) Medications and Allergies Cholecalciferol (Vitamin D3) [Vitamin D3] 2,000 unit PO DAILY 01/08/15 [History] FLUoxetine HCl [Prozac] 20 mg PO QAM 01/08/15 [History] Allopurinol [Zyloprim 100 MG] 50 mg PO DAILY 03/01/15 [History] Calcium Acetate 1,334 mg PO TIDWM 06/19/15 [History] Cyclobenzaprine HCl 10 mg PO TID PRN 06/19/15 [History] Aspirin 81 mg PO DAILY 10/09/15 [History] Ondansetron HCl [Zofran] 4 mg PO Q4-6H PRN 10/12/15 [History] Midodrine [ProAmatine] 10 mg PO 0800,1200,1700 #90 tablet 10/18/15 [Rx] Orphenadrine [Norflex] 100 mg PO Q12HR PRN #20 tablet.er 11/18/15 [Rx] Renal Vitamin [Renal Caps Softgel] 1 mg PO DAILY 12/27/15 [History] Lactulose 45 ml PO TID 30 Days 01/01/16 [Rx] Rifaximin [Xifaxan] 550 mg PO BID #60 tablet 01/01/16 [Rx] TraMADol [Ultram] 50 mg PO QID PRN #20 tablet 01/01/16 [Rx] Cephalexin [Keflex] 500 mg PO DAILY #5 capsule 02/17/16 [Rx] Omeprazole [PriLOSEC] 40 mg PO BID #60 capsule. 02/17/16 [Rx] Sucralfate [Carafate] 1 gm PO TID 30 Days 02/17/16 [Rx] Nateglinide [Starlix] 60 mg PO TID 02/28/16 [History] Allergies No Known Allergies Allergy (Verified 02/27/16 08:50) Review of Systems All Systems: reviewed and no additional remarkable complaints except as stated ( as documented in the HPI.) Exam - Vital Signs Vital signs: Initial Vital Signs Temp Pulse Resp BP Pulse Ox 97.4 F L 63 16 84/33 100 02/28/16 17:46 02/28/16 17:46 02/28/16 17:46 02/28/16 17:46 02/28/16 17:46 Vital Signs - Last 8 Hours Temp Pulse Resp BP Pulse Ox 02/29/16 09:37 104/44 02/29/16 07:52 61 L 02/29/16 07:37 97.4 F L 61 16 81/38 99 02/29/16 02:56 98 F 55 18 83/35 99 Intake and Output 02/28/16 02/29/16 02/29/16 23:59 07:59 15:59 Intake Total 0 / 0 600 / 600 461 / 461 Output Total 0 / 0 Balance 0 / 0 600 / 600 461 / 461 Intake: IV Fluids 350 / 350 461 / 461 D5% And 0.9% Nacl 1000 Ml 461 / 461 1,000 ML @ 75 mls/hr IVC .[id number] SUSAN Rx#: [id number] ALBURX 5% 12.5 gm In 250 250 / 250 ml @ 999 mls/hr IVPB AD SUSAN Rx#:[id number] Rocephin 1,000 MG In 100 / 100 Dextrose 5% (Minibag+) 100 ML 100 ML @ 200 mls/ hr IVPB Q24H SUSAN Rx#: [id number] Blood Product 0 / 0 250 / 250 Rbcs Leuko Poor As-1 0 / 0 250 / 250 Unit [id number] Output: Urine 0 / 0 Other: Weight 86.3 kg 85.6 kg Blood Glucose* 44 106 124 Patient Weight 02/29/16 23:59 Weight 85.6 kg - General Appearance General appearance: well-developed, well-nourished EENT: ATNC Neck: supple Respiratory: clear Cardiology: no edema, regular rate Gastrointestinal: normoactive bowel sounds, no tenderness, obese, distended Integumentary: warm and dry Additional Comments: patient is sleepy, but easily aroused. Seems confused. Musculoskeletal: no cyanosis Psychiatric: mood/affect appropriate Results - Lab Results 02/29/16 06:08 02/29/16 06:08 Most recent lab results Calcium 8.2 mg/dL (8.6-10.8) L 02/29/16 06:08 Phosphorus 8.6 mg/dL (2.3-4.7) H 02/28/16 18:26 Magnesium 2.6 mg/dL (1.6-2.6) 02/28/16 18:26 Consult Discharge Plan - Plan Referrals: [facility],PCP [Primary Care Provider] - (Needs appointment made with [facility] provider)
[2016-02-29] MEDS ORDERED: 0.9 % Sodium Chloride 2,000 ML ONE (10:45)
--- NOTE | 2016-02-29 14:05 | ECHO - Doppler Report ---
Echocardiogram Name: Raudel Ponce Date of Study: 02/29/2016 Date: 1950 Ht: 66.0 in Medical Record#: [id number] Age: 65 Wt: 188.0 lb Gender: Male BSA: 1.95 Order #: [id number] Location: [facility] Room #: 2A13 Reading Physician: Deric Grider DO, [facility] Tool Design Drafter: Sylwia Vargas RDCS, RVT Ordering Physician: Regis Lucas MD Primary Physician: [facility] Indications: Shortness of breath Impressions: LVEF 65%. Normal LV chamber size, wall thickness and function. Moderate left ventricular diastolic dysfunction. Normal right ventricular structure and function. Mild mitral stenosis suggested by Doppler. Mean gradient 5 mmHg (HR 63 bpm). Visually, the mitral valve opens adequately and there is no significant stenosis. No evidence of pulmonary hypertension. Left Ventricular Wall Motion: Rest Echo Findings All wall segments showed normal motion. Findings: Study Quality * Technically adequate exam. ECG Findings * Normal sinus rhythm. Left Ventricle * LVEF 65%. * Normal LV chamber size, wall thickness and function. * Moderate left ventricular diastolic dysfunction. Right Ventricle * Normal right ventricular structure and function. Left Atrium * Moderate to severely dilated left atrium. Right Atrium * Mild to moderately dilated right atrium. Interatrial Septum * Interatrial septum not well evaluated. Aortic Valve * Trileaflet aortic valve with normal function. * No aortic regurgitation. * No aortic stenosis. Mitral Valve * Mildly thickened mitral valve leaflets. * Mild mitral annular calcification * No mitral regurgitation. * Mild mitral stenosis suggested by Doppler. Mean gradient 5 mmHg (HR 63 bpm). * Visually, the mitral valve opens adequately and there is no significant stenosis. Tricuspid Valve * Normal tricuspid valve structure and function. * Trace tricuspid regurgitation. * No evidence of pulmonary hypertension. Pulmonic Valve * Normal pulmonic valve structure and function. * Trace pulmonic regurgitation. Aorta * Normally sized aortic root. Pericardium * There is a trivial pericardial effusion present. IVC * The IVC is not well evaluated. Pulmonary Artery * Normal visualized portions of the main pulmonary artery. History Diabetes Family History of CAD Valvular Disease 01-09-2015 a Previous Echo was performed. Measurements: BP: 104/ 44 2D Normal Values RVIDd: 4.65 cm <2.7 cm IVSd: .90 cm 0.6 - 1.0 cm LVIDd: 5.60 cm 3.7 - 5.6 cm LVPWd: .90 cm 0.6 - 1.1 cm LVIDs: 2.90 cm 1.5 - 3.6 cm AO: 2.40 cm < 4.0 cm LA: 4.90 cm 2.0 - 4.0cm %FS: 48.20 cm >25 % LA volume: 99 Mitral Valve Peak Velocity 1.74 m/sec Mean Velocity:1.02 m/sec Peak Grad:12.00 mmHg Mean Grad:5.00 mmHg Pressure Time:80.00 msec Valve Area:2.75 cm2 Peak E:1.51 m/sec Peak A:1.04 m/sec E/A Ratio:1.5 Peak E' Lat Cornel:8.24 cm/s Peak E' Med Cornel:5.35 cm/s E/E' Lat Ratio:18.3 E/E' Med Ratio:28.2 Tricuspid Valve TV Regurg Peak Grad: 27.00mmHg TV Regurg Peak Cornel: 2.59m/sec Updated by Deric Grider DO, FACShani, SOCO, FASFABRICIO on 02/29/2016 1:59:25 PM electronically signed on 02/29/2016 2:00:34 PM with status of Final Wall Motion Blackman: 1=Normal, 2=Hypokinesis, 3=Akinesis, 4=Dyskinesis, 5=Aneurysmal, 6=Hyperkinetic, X=Not Visualized (Blank)=Missing
[2016-02-29] MEDS ORDERED: Ondansetron 4 MG/2 ML VIAL IVP PRN (14:50)
--- NOTE | 2016-02-29 16:35 | Physician Discharge Referral ---
Home Health/Hosp Referral Info Transfer to: Home Health Attending Provider: - Diagnosis (1) Hypoglycemia Priority: Primary Status: Acute (2) Anemia Status: Chronic (3) ESRD (end stage renal disease) Priority: Secondary Status: Chronic - Respiratory Orders Oxygen / L per min (2 litters) Smoking Cessation: Smoking cessation has been advised. For more information, call the [place] Tobacco Quit Line at 2-827-MGXX-NOW. - Diet/Nutrition Diet/Nutrition Orders: Renal - Activity Activity Orders: Up ad nabeel - Services Needed Following services are medically necessary services: Nursing, Physical Therapy, Occupational Therapy - Transfer Medications Home Medications: Cholecalciferol (Vitamin D3) [Vitamin D3] 2,000 unit PO DAILY 01/08/15 [History] FLUoxetine HCl [Prozac] 20 mg PO QAM 01/08/15 [History] Allopurinol [Zyloprim 100 MG] 50 mg PO DAILY 03/01/15 [History] Calcium Acetate 1,334 mg PO TIDWM 06/19/15 [History] Cyclobenzaprine HCl 10 mg PO TID PRN 06/19/15 [History] Aspirin 81 mg PO DAILY 10/09/15 [History] Ondansetron HCl [Zofran] 4 mg PO Q4-6H PRN 10/12/15 [History] Midodrine [ProAmatine] 10 mg PO 0800,1200,1700 #90 tablet 10/18/15 [Rx] Orphenadrine [Norflex] 100 mg PO Q12HR PRN #20 tablet.er 11/18/15 [Rx] Renal Vitamin [Renal Caps Softgel] 1 mg PO DAILY 12/27/15 [History] Lactulose 45 ml PO TID 30 Days 01/01/16 [Rx] Rifaximin [Xifaxan] 550 mg PO BID #60 tablet 01/01/16 [Rx] TraMADol [Ultram] 50 mg PO QID PRN #20 tablet 01/01/16 [Rx] Cephalexin [Keflex] 500 mg PO DAILY #5 capsule 02/17/16 [Rx] Omeprazole [PriLOSEC] 40 mg PO BID #60 capsule. 02/17/16 [Rx] Sucralfate [Carafate] 1 gm PO TID 30 Days 02/17/16 [Rx] Nateglinide [Starlix] 60 mg PO TID 02/28/16 [History] Allergies/Adverse Reactions: Allergies No Known Allergies Allergy (Verified 02/27/16 08:50) Certification: Further, I certify that my clinical findings support that this patient is homebound (i.e. absences from home require considerable and taxing effort and are for medical reasons or anabaptism services or infrequently or short duration when for other reasons) because: Homebound Reason: Leaving home requires considerable and taxing effort due to condition, Altered mental status requiring supervision when leaving home Attestation: My signature below is to certify that this patient is under my care and that I, or nurse practitioner, or a physician's sales and marketing assistant working with me, has a face-to -face encounter with this patient.
--- NOTE | 2016-02-29 16:36 | Electrocardiograph Report ---
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
[2016-02-29] MEDS: Cefotaxime 2,000 MG in D5% in Water 100 ML IVPB SCH (17:01)
[2016-02-29] MEDS ORDERED: Cefotaxime 1,000 MG in D5% in Water (Mini-Bag+) 100 ML IVPB SCH (18:00)
[2016-02-29] MEDS ORDERED: D10% in Water 500 ML IVC ONE ×2 (18:37→19:00)
[2016-03-01 07:23] LABS: Mean Corpuscular Volume 97.2 fL (83.0-100.0); Red Blood Count 2.16 M/mcL (4.19-5.50)
[2016-03-01 07:25] LABS: Basophils # 0.1 K/mcL (0.0-0.2); Basophils % 0.9 %; Eosinophils # 0.2 K/mcL (0.0-0.6); Eosinophils % 3.8 %; Immature Granulocytes % 0.5 % (0-4); Immature Platelets 5.7 % (1.1-6.1); Lymphocytes # 0.6 K/mcL (0.6-4.6); Lymphocytes % 9.8 %; Mean Corpuscular HGB Conc 33.3 g/dL (31.6-35.5); Mean Corpuscular Hemoglobin 32.4 pg (28.0-33.3); Mean Platelet Volume 11.3 fL (9.4-12.4); Monocytes # 0.8 K/mcL (0.0-1.3); Monocytes % 13.6 %; Platelet Count 65 K/mcL (140-400); Red Cell Distribution Width 23.7 % (11.5-14.5); Segmented Neutrophils % 71.4 %
[2016-03-01 07:28] LABS: Albumin 2.7 g/dL (3.5-5.0); Albumin/Globulin Ratio 1.3 (1.1-2.2); Bilirubin,Total 2.8 mg/dL (0.2-1.2); Calcium 7.8 mg/dL (8.6-10.8); Globulin 2.1 g/dL (2.4-3.5); Potassium 4.5 mEq/L (3.5-4.5); Total Protein 4.8 g/dL (6.0-8.3)
[2016-03-01 07:35] LABS: Neutrophils # 4.1 K/mcL (1.6-8.9)
[2016-03-01] MEDS: Renal Vitamin 1 MG CAPSULE PO SCH (07:47)
[2016-03-01] MEDS: Calcium Acetate 667 MG CAPSULE PO SCH ×3 (07:47→17:10)
[2016-03-01] MEDS: Aspirin 81 MG TAB.CHEW PO SCH (07:47)
[2016-03-01] MEDS: Lactulose Oral Soln 20 GM/30 ML UDC PO SCH ×3 (07:48→21:13)
[2016-03-01] MEDS: FLUoxetine 20 MG CAPSULE PO SCH (07:48)
[2016-03-01] MEDS: Cholecalciferol (D-3) 1,000 UNIT TABLET PO SCH (07:48)
[2016-03-01 07:56] LABS: Anisocytosis 2+ (Not Present); Platelet Estimate Decreased (Normal); Target Cells 1+ (Not Present)
--- NOTE | 2016-03-01 10:01 | Nephrology Progress Note ---
Date of Encounter: 03/01/16 Time of Encounter: 09:59 - Assessment and Plan (1) Elevated troponin I measurement Current Visit: Yes Status: Acute Defer to primary team. Patient denies chest pain. Likely related to renal failure. (2) Hypotension Current Visit: Yes Status: Acute Stable. Asymptomatic. Qualifiers: Qualified Code(s): I95.9 - Hypotension, unspecified (3) Anemia Current Visit: Yes Status: Chronic Monitor hemoglobin and replace as needed. Qualifiers: Qualified Code(s): D64.9 - Anemia, unspecified (4) ESRD (end stage renal disease) Current Visit: Yes Status: Chronic HD MWF. Renal dose medications. Renal diet. (5) Morbid obesity with BMI of 40.0-44.9, adult Current Visit: Yes Status: Chronic (6) Encephalopathy Current Visit: Yes Status: Acute Resolved. ?etiology - early infection vs hypoglycemia vs hepatic encephalopathy. Per primary team. Hypoglycemia could be secondary to liver failure and inability to create glucose after talking with Dr. Lucas. She has spoken with the family and will work on transfer to [facility]. Subjective Principal diagnosis: ESRD Interval history: Patient feels much better this morning. He is sitting in a chair and interacting with his family. He has no complaints. Objective - Vital Signs Vital signs: Vital Signs Temp Pulse Resp BP Pulse Ox 03/01/16 07:25 97.3 F L 64 16 95/45 98 03/01/16 05:10 97.8 F 61 16 95/42 97 03/01/16 00:36 97.6 F 60 16 109/52 99 02/29/16 20:33 97.9 F 65 16 78/35 98 02/29/16 15:51 97.9 F 76 16 76/37 95 02/29/16 14:35 97.4 F L 16 80/41 02/29/16 14:20 78/34 02/29/16 14:05 82/34 02/29/16 13:50 84/34 02/29/16 13:35 87/40 02/29/16 13:20 89/41 02/29/16 13:05 86/39 02/29/16 12:50 83/41 02/29/16 12:35 84/41 02/29/16 12:20 84/40 02/29/16 12:05 91/42 02/29/16 11:50 89/47 02/29/16 11:35 97.4 F L 16 95/51 Intake and Output 02/29/16 03/01/16 03/01/16 23:59 07:59 15:59 Intake Total 600 / 600 240 / 240 Balance 600 / 600 240 / 240 Intake: Oral 600 / 600 240 / 240 Other: Meal Breakfast Percent of Meal Consumed 100% # Voids 0 Blood Glucose* 146 207 148 - General Appearance General appearance: Present: well-developed, well-nourished, obese EENT: Present: ATNC Neck: Present: supple Additional Comments: respirations are unlabored. Cardiology: Present: regular rate Integumentary: Present: warm and dry Additional Comments: alert. Sitting in a chair. Psychiatric: Present: mood/affect appropriate - Lab 03/01/16 07:07 03/01/16 07:07 Most recent lab results Calcium 7.8 mg/dL (8.6-10.8) L 03/01/16 07:07 Phosphorus 8.6 mg/dL (2.3-4.7) H 02/28/16 18:26 Magnesium 2.6 mg/dL (1.6-2.6) 02/28/16 18:26 Consult Discharge Plan - Plan Referrals: [facility],PCP [Primary Care Provider] - ([facility]. Esp[facility] [place]. Pts is to call Jamil [phone] ext. [phone], the block and case maker when the patient is discharged)
--- NOTE | 2016-03-01 10:03 | Internal Med Progress Note ---
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 overnight blood suger stable - Constitutional Vitals: Temp Pulse Resp BP Pulse Ox 97.3 F L 64 16 95/45 98 03/01/16 07:25 03/01/16 07:25 03/01/16 07:25 03/01/16 07:25 03/01/16 07:25 General appearance: Present: cooperative, obese, answers questions appropriately. Absent: A&O X 1, A&O X 2, mild distress, A&O X 3 - Respiratory Respiratory exam: Present: decreased breath sounds - Cardiovascular Cardiovascular exam: Present: RRR, +S1, +S2 - GI/Abdominal GI/Abdominal exam: Present: splenomegaly (+ asciitis) - Extremities Exam Extremities exam: Present: pedal edema (edema +) - Neurological Exam Neurological exam: Present: CN II-XII intact, oriented X3 Internal Medicine: Result - Labs CBC & Chem 7: 03/01/16 07:07 03/01/16 07:07 Labs: Short CBC 03/01/16 Range/Units 07:07 WBC 5.8 (4.3-11.1) K/mcL Hgb 7.0 L (12.9-16.9) g/dL Hct 21.0 L (37.5-50.1) % Plt Count 65 L (140-400) K/mcL Neutrophils # 4.1 (1.6-8.9) K/mcL BMP 03/01/16 07:07 Sodium 138 Potassium 4.5 Chloride 103 Carbon Dioxide 27 BUN 46 H D Creatinine 5.92 H Glucose 164 H Calcium 7.8 L Liver Function 03/01/16 Range/Units 07:07 Total Bilirubin 2.8 H (0.2-1.2) mg/dL AST 32 (5-34) Units/L ALT 29 (0-55) Units/L Alkaline Phosphatase 113 (38-126) Units/L Albumin 2.7 L (3.5-5.0) g/dL - ABG Interpretation ABG results: PT/INR, D-dimer PT 22.4 Seconds (9.4-12.1) H 02/29/16 08:39 Consult Discharge Plan - Plan Referrals: [facility],PCP [Primary Care Provider] - (Pt [facility] Dr. España with [facility] the [place]. Pts is to call Jamil [phone]. [phone], the case liner when the patient is discharged)
[2016-03-01] MEDS ORDERED: Ibuprofen 600 MG TABLET PO PRN (15:39)
[2016-03-01] MEDS: Cefotaxime 2,000 MG in D5% in Water 100 ML IVPB SCH (17:10)
[2016-03-02] MEDS: Cholecalciferol (D-3) 1,000 UNIT TABLET PO SCH (07:49)
[2016-03-02] MEDS: Renal Vitamin 1 MG CAPSULE PO SCH (07:50)
[2016-03-02] MEDS: Calcium Acetate 667 MG CAPSULE PO SCH ×2 (07:50→11:44)
[2016-03-02] MEDS: Aspirin 81 MG TAB.CHEW PO SCH (07:50)
[2016-03-02] MEDS: FLUoxetine 20 MG CAPSULE PO SCH (07:50)
[2016-03-02] MEDS: Lactulose Oral Soln 20 GM/30 ML UDC PO SCH (07:50)
[2016-03-02 08:17] LABS: Mean Corpuscular HGB Conc 33.6 g/dL (31.6-35.5); Mean Corpuscular Hemoglobin 33.5 pg (28.0-33.3); Mean Corpuscular Volume 99.6 fL (83.0-100.0)
[2016-03-02 08:19] LABS: Hematocrit 24.1 % (37.5-50.1); Hemoglobin 8.1 g/dL (12.9-16.9); Mean Platelet Volume 11.1 fL (9.4-12.4); Red Blood Count 2.42 M/mcL (4.19-5.50); Red Cell Distribution Width 24.2 % (11.5-14.5)
[2016-03-02 08:28] LABS: Calcium 8.7 mg/dL (8.6-10.8); Potassium 4.2 mEq/L (3.5-4.5)
--- NOTE | 2016-03-02 10:10 | Nephrology Progress Note ---
Date of Encounter: 03/02/16 Time of Encounter: 10:05 - Assessment and Plan (1) Hypotension Current Visit: Yes Status: Acute Stable. Asymptomatic. Qualifiers: Qualified Code(s): I95.9 - Hypotension, unspecified (2) Anemia Current Visit: Yes Status: Chronic Monitor hemoglobin and replace as needed. Qualifiers: Anemia type: unspecified type Qualified Code(s): D64.9 - Anemia, unspecified (3) ESRD (end stage renal disease) Current Visit: Yes Status: Chronic HD MWF. Renal dose medications. Renal diet. (4) Encephalopathy Current Visit: Yes Status: Acute Resolved. ?etiology - early infection vs hypoglycemia vs hepatic encephalopathy. Per primary team. Hypoglycemia could be secondary to liver failure and inability to create glucose after talking with Dr. Lucas (03/01/2016). She has spoken with the family and will work on transfer to [facility]. Subjective Principal diagnosis: ESRD Interval history: Patient resting quietly. He is in no distress. Objective - Vital Signs Vital signs: Vital Signs Temp Pulse Resp BP Pulse Ox 03/02/16 07:30 95 03/02/16 07:08 97.8 F 74 14 92/51 95 03/02/16 04:01 97.9 F 70 16 88/44 100 03/02/16 00:10 97.8 F 69 16 89/42 97 03/01/16 19:46 97.3 F L 70 16 101/53 100 03/01/16 18:16 94/40 03/01/16 16:11 98.0 F 73 16 80/48 99 03/01/16 10:53 97.2 F L 64 16 104/61 94 L Intake and Output 03/01/16 03/02/16 03/02/16 23:59 07:59 15:59 Intake Total 340 / 340 0 / 0 Output Total 0 / 0 0 / 0 Balance 340 / 340 0 / 0 Intake: Oral 340 / 340 0 / 0 Output: Urine 0 / 0 0 / 0 Other: Meal Dinner Percent of Meal Consumed 100% Weight 84.1 kg Blood Glucose* 115 115 Patient Weight 03/02/16 23:59 Weight 84.1 kg - General Appearance General appearance: Present: well-developed, well-nourished, obese EENT: Present: ATNC Additional Comments: respirations are unlabored. Cardiology: Present: regular rate Additional Comments: Asleep. Spontaneous breathing noted. - Lab 03/02/16 08:06 03/02/16 08:06 Most recent lab results Calcium 8.7 mg/dL (8.6-10.8) 03/02/16 08:06 Phosphorus 8.6 mg/dL (2.3-4.7) H 02/28/16 18:26 Magnesium 2.6 mg/dL (1.6-2.6) 02/28/16 18:26 Consult Discharge Plan - Plan Referrals: [facility],PCP [Primary Care Provider] - (Pt sees Dr. España with [facility] the [place]. Pts is to call Jamli [phone] ext. [phone], the patient case manager when the patient is discharged)
[2016-03-02 11:09] VITALS: BP 91/47
--- NOTE | 2016-03-02 12:08 | Discharge Summary ---
Date of Encounter: 03/02/16 Time of Encounter: 12:05 - Discharge Diagnosis (1) Cirrhosis Priority: Primary Status: Acute Qualifiers: Hepatic cirrhosis type: unspecified hepatic cirrhosis Ascites presence: with ascites Qualified Code(s): K74.60 - Unspecified cirrhosis of liver (2) DM (diabetes mellitus), type 2 with renal complications Priority: Secondary Status: Chronic Qualifiers: Diabetes mellitus complication detail: with chronic kidney disease Diabetes mellitus manager terminal insulin use: without snf use Chronic kidney disease stage: on chronic dialysis Qualified Code(s): E11.22 - Type 2 diabetes mellitus with diabetic chronic kidney disease; N18.6 - End stage renal disease; Z99.2 - Dependence on renal dialysis - Discharge Medications Home Medications: Cholecalciferol (Vitamin D3) [Vitamin D3] 2,000 unit PO DAILY 01/08/15 [History] FLUoxetine HCl [Prozac] 20 mg PO QAM 01/08/15 [History] Allopurinol [Zyloprim 100 MG] 50 mg PO DAILY 03/01/15 [History] Calcium Acetate 1,334 mg PO TIDWM 06/19/15 [History] Cyclobenzaprine HCl 10 mg PO TID PRN 06/19/15 [History] Aspirin 81 mg PO DAILY 10/09/15 [History] Ondansetron HCl [Zofran] 4 mg PO Q4-6H PRN 10/12/15 [History] Midodrine [ProAmatine] 10 mg PO 0800,1200,1700 #90 tablet 10/18/15 [Rx] Orphenadrine [Norflex] 100 mg PO Q12HR PRN #20 tablet.er 11/18/15 [Rx] Renal Vitamin [Renal Caps Softgel] 1 mg PO DAILY 12/27/15 [History] Lactulose 45 ml PO TID 30 Days 01/01/16 [Rx] Rifaximin [Xifaxan] 550 mg PO BID #60 tablet 01/01/16 [Rx] TraMADol [Ultram] 50 mg PO QID PRN #20 tablet 01/01/16 [Rx] Cephalexin [Keflex] 500 mg PO DAILY #5 capsule 02/17/16 [Rx] Omeprazole [PriLOSEC] 40 mg PO BID #60 capsule. 02/17/16 [Rx] Sucralfate [Carafate] 1 gm PO TID 30 Days 02/17/16 [Rx] Nateglinide [Starlix] 60 mg PO TID 02/28/16 [History] Allergies/Adverse Reactions: Allergies No Known Allergies Allergy (Verified 02/27/16 08:50) Procedures/tests Complete & Pending: Procedures Performed prior 72 hours Category Date Time Status CT abd pelvis wo no iv no oral [CT] Routine Cat Scan 02/29/16 08:45 Completed EV echocardiogram Routine Y 02/29/16 07:48 Completed Date of admission: 02/28/16 20:20 [facility] Consults: 02/28/16 22:28 Consult to Nutrition [CONS] Routine Comment: Consulting Provider: NUTRITION Reason for Dietary Consult: Other Consult to Dormitory Supervisor [CONS] Routine Reason for SW Consult: Patient has NCR at home. 02/29/16 08:17 Consult to Nephrology [CONS] Routine Consulting Provider: Kidney Spclst Emy HANNAH/JORGE Reason for Consult: ESRD Call Completed: Yes 02/29/16 10:00 Consult to Dialysis [CONS] ONCE 03/01/16 08:00 Consult to Physician [CONS] Routine Consulting Provider: Jennifer Polk Reason for Consult: ESRD hemodialysis dependent Thursday. Undergoing weekly large-volume paracenteses for cirrhotic liver disease with ascites. Admitted with hypovolemic shock and symptomatic anemia. He was evaluated and advised. Time Notified: 21:55 Call Completed: No Discharging clinician: Erick Daniel Anticipated date of discharge: 03/02/16 - Patient Status Disposition: Home, Self-Care Condition: Fair Functional capacity at discharge: independent ambulation Overall status at discharge: patient is back to baseline - Discharge Instructions [facility] With: [facility] [Primary Care Provider] - ([facility]. España [facility] [place]. Pts is to call Jamil [phone] ext. [phone], the field nurse case manager when the patient is discharged) - Diet and Activity Activity: increase activity as tolerated Diet: advance to your usual diet Interval History: Mr. Ponce is a 65 year old male [facility] patient with history significant for MONTANO-induced cirrhotic liver disease, portal hypertension with ascites, weekly/ biweekly paracenteses, H/O hepatitis B, GERD/portal hypertensive gastropathy/ antral vascular ectasia, PUD/duodenitis/GI bleed, nonobst 3vCAD/diatolicCHF/ LVEF65%, osteoarthritis, osteoporosis, gout/hyperuricemia, vitamin D deficiency , postural hypotension, type 2 diabetes mellitus, ESRD hemodialysis dependent ( Thursday), hepatitis, H/O CVA/TIA, H/O seizures, PTSD, depression and anxiety, hepatic encephalopathy, H/O SBP, anemia of chronic disease, hypertension, dyslipidemia, morbid obesity, nonsmoker The patient was visited and interviewed and examined. The patient is admitted to [facility] via the emergency department when he presented with concerns for low blood pressure the patient was referred from the outpatient interventional radiology procedure area. The patient was undergoing elective ultrasound-guided paracentesis. During the procedure total of 10,800 mL of ascites was removed. The patient obtains scheduled paracenteses on a weekly basis. Vital signs obtained prior to and after procedure found blood pressures to trend low with the patient reporting a feeling of generalized weakness and lightheadedness/wooziness and was sent to the ED for further evaluation. The patient had underwent left heart catheterization the day prior to admission which found no significant obstructive coronary artery disease ( angioplasty and stent placements not required. Patient is currently not anticoagulated. End-stage renal disease hemodialysis dependent normally receives Thursday dialysis and was formally dialyzed on Thursday plus a partial dialysis was performed on Thursday in anticipation of cardiac catheterization. He did not undergo hemodialysis on the day of admission. He reported a history of previous symptomatic anemia requiring transfusion therapy. He acknowledges that he also receives intravenous iron during his hemodialysis run but is unaware of whether or not this also includes Aranesp therapy during dialysis as well. He denied any evidence for active bleeding events (epistaxis hemoptysis hematemesis melena bright red blood per rectum hematochezia hematuria, etc.). Denies any significant prior history of cardiac arrhythmias or significant congestive heart failure complaints. Denies any recent history of fall or injury. Denies fevers chills sweats. Denies any upper respiratory complaints. Denies chest pain abdominal pain and flank pain headache. Denies any unilateral weakness vision deficit slurring of speech or acute confusion. Allergies chronic diverticulitis pain/discomfort at a 4/10 severity acknowledges compliance with current medications nicely dietary recreational or medication-related indiscretions. Findings in the ED: Temperature 97.4 pulse 63 respirations 16 BP 79-84/34 O2 saturation 90% room air. WBC 5.7 hemoglobin 6 hematocrit 17.6 platelets 67,000. RDW 23.2. MCH 33.7. Differential benign. PT 21.3 INR 1.9. Metabolic panel notes a BUN 84 creatinine 8.09 GFR 7. Glucose 36 osmolality 306. Phosphorus 8.6 magnesium 2.6. Lactic acid 2.4. Hepatic function total protein 5.2 albumin 3.3 globulin 1.9. Total bilirubin 3.1 direct 1.7 indirect 1.4. Troponin 0.04. Chest x-ray demonstrates no acute or active cardiopulmonary process. Central line in stable position. Lungs without acute process. No effusion pneumothorax or focal infiltrate. Cardiac and mediastinal silhouette stable. Osseous structures stable. Preliminary impression suggests symptomatic hypovolemic shock due to combined acute on chronic blood loss symptomatic anemia plus significant volume loss following large volume paracentesis. No evidence clearly apparent of intravenous albumin administration to offset volume deficit following paracentesis. MONTANO-induced cirrhotic liver disease with portal systemic hypertension and severe ascitic fluid reaccumulation requiring weekly elective paracenteses (Child Rabago score class C, MELD-Na score 33, DF score 40.7 ). This on top of the patient's scheduled hemodialysis 3 times weekly. Screening studies did not presence of systemic inflammatory response syndrome or sepsis in the current setting. Coagulopathy secondary to liver disease as well as thrombocytopenia, severe protein caloric malnutrition, transaminitis/ hyperbilirubinemia, etc. also noted. A type II diabetic the patient is managed primarily with renal diet plus Starlix taken orally with each meal. Although he is aware that he is to remain on a renal diet and be restrictive of sodium intake his acknowledges that he is not that vigilant and salt restriction. In concert with severe end-stage renal disease noted abnormalities include hyper phosphatemia, lactic acidemia, anemia of chronic disease,etc. an elevation in this setting may be spurious due to significant renal failure or an indicator of demand ischemia in the setting of patient's severe chronic illness. He denies however any chest pain complaints. Severe hypoglycemia is of concern especially given management only with an oral agent. Given the chronicity of patient's illness and multisystem derangements it is likely that he is now manifesting a degree of adrenal insufficiency. This will be investigated further. Given the patient is presenting concerns, clinical findings, frailty and comorbidities , he is at risk for further acute clinical decline-morbidity in this presentation. Workup and treatments will proceed comprehensively. Cumulative laboratory and radiographic data base was reviewed, considered and discussed. Pertinent ancillary medical records including ECW and PCI documentation, when available, was reviewed and considered. Given the patient's presenting concerns, past medical history, clinical findings and symptoms, he is admitted at this time will undergo further evaluation and disposition. Orders were written as per the computerized physician night order selector system.......................................................................... .................... Consultative opinion and will be sought as clinical circumstances justify. Initial consultative request has been submitted to nephrology/dialysis team. Pain management needs will be addressed. Laboratory and radiographic data base will be updated as appropriate. Studies include: cardiac injury panel, BNP, metabolic and hematologic panel, magnesium, phosphorus, ionized calcium, thyroid panel, lipid profile, A1c, C-peptide, CRP, sedimentation rate, venous blood gas, type and screen, ammonia, UDS, lactic acid , random am and pm cortisol, Hemoccult stool, serologies, etc. Precautions: Aspiration, fall, delirium protocol/surveillance initiated. Telemetry with continuous hemodynamic monitoring and pulse oximetry initiated. Orthostatic vital signs. Empiric antibody coverage: Intravenous Rocephin pending culture data. Special studies: Chest x-ray, telemetry, EKG. Pulmonary toilet: Incentive spirometry. When necessary aerosol bronchodilator, mucolytic, antitussive. When necessary supplemental oxygen. Corticosteroid therapy when necessary. CPAP/BiPAP supplemental oxygen delivery when necessary. Aerosol Mucomyst therapy when necessary. Fluid and electrolyte repletion efforts will proceed. Careful attention to fluid balance and renal recovery will be emphasized. Avoidance of nephrotoxic exposure and adverse drug drug interaction in the setting of impaired renal function will be monitored closely. Intravenous albumin 5% infusions x3 in recognition of severe hypoalbuminemia/ protein caloric malnutrition and concomitant fluid shifts with extravascular third spacing and intravascular volume depletion. Transfusion therapy of packed RBCs to achieve a stable hemoglobin measurement greater than 8.5. Pending random cortisol a.m. and p.m. measurements. A cosyntropin challenge test may be required to confirm adrenal insufficiency diagnosis and justify initiation of chronic corticosteroid repletion. Acute coronary syndrome protocols/surveillance initiated. DVT and PUD prophylaxis initiated: PPI therapy, intermittent pneumatic cuffs/ TEDs. Subcutaneous heparin was held due to thrombocytopenia and coagulopathy secondary to liver disease. Early ambulation will be encouraged. Immunization updates recommended. Influenza and pneumococcal vaccinations as part of ongoing preventative healthcare recommendations strongly recommended. Hepatic encephalopathy protocols initiated. Continuance of oral lactulose therapy to achieve 2-4 formed stools daily initiated. Plus rifaximin therapy twice daily initiated. Trending of ammonia levels will be initiated. Smoking cessation counseling briefly addressed. Patient is a nonsmoker. Advanced care directive discussion briefly addressed. Patient does not declare any healthcare restrictions at this time. Cardiovascular risk appraisal and cardiovascular risk reduction efforts will be emphasized. Physical and occupational therapy may be consulted to assess patient's functional capacity of progress mobility as his clinical circumstances permit. Sliding scale insulin coverage when necessary, ADA/renal dietary restraint and schedule an as-needed basis fingerstick glucose assessments were initiated. Nutrition/diabetes education counseling may be considered if circumstances justify. Outpatient medication schedules will be reviewed confirmed and facilitated as appropriate. Reconciliation of home treatments including adjustments, substitutions and reintroduction into the treatment regimen will address necessary maintenance therapies for chronic pre-existing medical conditions. Plan of care has been reviewed and discussed in detail with the patient and family in attendance. Questions addressed to their mutual satisfaction and reassurance. Hospital course is dependent on clinical findings, treatment response and potential consultative interventions. Patient is at risk for further acute clinical decline and morbidity due to presenting chief complaints, clinical findings and comorbid conditions in the setting of having multiorgan derangements. Condition is serious. Prognosis is cautiously optimistic. CODE STATUS is full. Hospital course: Mr. Ponce is a 65 year old male with known history of cirrhosis, end-stage renal disease, type 2 diabetes. Had persistent episodes of hypoglycemia which have resolved. He is tolerating diet, his fingersticks are above 100. He is otherwise stable, he is in his baseline medical condition. I have taken care of this patient in the past, I know him and his family. I had a lengthy conversation with them about discharge planning, and they agreed with plan of discharge and close follow-up by his primary care physician. Additionally, [facility] and has pending appointments for evaluation by transplant team. - Time Spent with Patient Total time spent providing and/or coordinating discharge services: Greater than 30 minutes - Constitutional Vitals: Temp Pulse Resp BP Pulse Ox 97.4 F L 75 14 91/47 99 03/02/16 10:53 03/02/16 10:53 03/02/16 10:53 03/02/16 10:53 03/02/16 10:53 General appearance: Present: cooperative, obese, answers questions appropriately. Absent: A&O X 1, A&O X 2, mild distress, A&O X 3 - Head Head exam: Present: atraumatic, normocephalic - Eye Eye exam: Present: PERRL, conjuntiva pink, sclera anicteric Pupils: Present: PERRL - Neck Neck exam general surgery: Present: supple, trachea midline. Absent: lymphadenopathy - Respiratory Respiratory exam: Present: CTAB. Absent: accessory muscle use, rales, rhonchi, wheezes - Cardiovascular Cardiovascular exam: Present: RRR, +S1, +S2. Absent: diastolic murmur, gallop, rubs, systolic murmur - GI/Abdominal GI/Abdominal exam: Present: normal bowel sounds, soft, no peritoneal signs. Absent: distended, tenderness - Extremities Exam Extremities exam: Present: warm, radial pulses palpable and symetrical. Absent : calf tenderness, cyanotic, pedal edema - Neurological Exam Neurological exam: Present: CN II-XII intact, oriented X3, no focal deficits. Absent: pronater drift, facial droop, speech deficit - Skin Skin exam: Present: dry, intact
[2016-03-03 18:22] LABS: Insulin, Free 45 uIU/mL (3-19)
[2016-03-05 07:54] LABS: Insulin, Total 49 uIU/mL (3-19)
== END 2016-03-02 13:15 | disposition home or self-care (01) | DRG 919 ==
LOC: EMEROO 17:45 → SUATTDRO 20:20 → 2ANU 20:20
PROVIDERS: ADMIT Internal Medicine; ATTEND Internal Medicine

== ENCOUNTER 2016-03-03 17:37 | Inpatient (IN) ==
--- NOTE | 2016-03-03 18:02 | Emergency Department Note ---
Disposition Clinical Impression: Dyspnea, Cirrhosis, Ascites, Abdominal distension Disposition: Still a Patient Condition: Fair Referrals: NO,PCP [Non-Partnered Physician] - Forms: ED Satisfaction Letter Time of Disposition: 18:45 General Adult HPI - General Chief complaint: ED Shortness of Breath/Dyspnea Stated complaint: ERMA Time Seen by Provider: 03/03/16 17:58 Source: patient, family Mode of arrival: ambulatory Limitations: physical limitation Nursing Notes Reviewed: Yes Vital Signs Reviewed: Yes - History of Present Illness HPI Narrative: This is a 65-year-old male who has ascites and cirrhosis due to agent orange exposure in [place]. Patient states he was just in the hospital recently for blood pressure and blood sugar issues and they gave him a lot of fluids. Patient states his ascites has gotten worse from that and needs to be drained as he is having shortness of breath and upper abdominal discomfort due to the distention. Patient denies any fevers. Patient states he has been nauseated and dry heaving. Patient denies any diarrhea or black or bloody stools. Patient denies any chest pain. Patient states his last paracentesis was on but they had given him excess fluids after that. Onset (ago): day(s) Pain Scale: 8 - Related Data Home Medications Medication Instructions Recorded Confirmed Cholecalciferol (Vitamin D3) 2,000 unit PO DAILY 01/08/15 02/28/16 [Vitamin D3] FLUoxetine HCl [Prozac] 20 mg PO QAM 01/08/15 02/28/16 Allopurinol [Zyloprim 100 MG] 50 mg PO DAILY 03/01/15 02/28/16 Calcium Acetate 1,334 mg PO TIDWM 06/19/15 02/28/16 Cyclobenzaprine HCl 10 mg PO TID PRN 06/19/15 02/28/16 Aspirin 81 mg PO DAILY 10/09/15 02/28/16 Ondansetron HCl [Zofran] 4 mg PO Q4-6H PRN 10/12/15 02/28/16 Renal Vitamin [Renal Caps Softgel] 1 mg PO DAILY 12/27/15 02/28/16 Nateglinide [Starlix] 60 mg PO TID 02/28/16 02/28/16 Previous Rx's Medication Instructions Recorded Midodrine [ProAmatine] 10 mg PO 0800,1200,1700 #90 tablet 10/18/15 Orphenadrine [Norflex] 100 mg PO Q12HR PRN #20 tablet.er 11/18/15 Lactulose 45 ml PO TID 30 Days 01/01/16 Rifaximin [Xifaxan] 550 mg PO BID #60 tablet 01/01/16 TraMADol [Ultram] 50 mg PO QID PRN #20 tablet 01/01/16 Cephalexin [Keflex] 500 mg PO DAILY #5 capsule 02/17/16 Omeprazole [PriLOSEC] 40 mg PO BID #60 capsule. 02/17/16 Sucralfate [Carafate] 1 gm PO TID 30 Days 02/17/16 Allergies Allergy/AdvReac Type Severity Reaction Status Date / Time No Known Allergies Allergy Verified 03/03/16 17:47 All systems ED: reviewed and negative except as stated. Constitutional: Reports: weakness. Denies: fever, chills, weight change Eyes: Denies: eye pain, eye discharge, vision change ENT ED: Denies: ear pain, throat pain, dental pain, hearing loss, epistaxis, congestion, dysphagia Cardiovascular: Reports: dyspnea on exertion. Denies: chest pain, palpitations , edema, syncope Respiratory: Reports: dyspnea. Denies: cough, wheezes, hemoptysis, stridor Gastrointestinal: Reports: abdominal pain, nausea, vomiting. Denies: diarrhea, constipation, hematemesis, melena, hematochezia Genitourinary: Denies: urgency, dysuria, frequency, hematuria Musculoskeletal: Denies: back pain, neck pain, arthralgia, myalgia Integumentary: Denies: rash, abrasion, lesions Neurological: Denies: headache, numbness, paresthesias, confusion, abnormal gait , vertigo Psychiatric: Denies: anxiety, depression, suicidal thoughts, homicidal thoughts , auditory hallucinations, visual hallucinations Endocrine: Reports: fatigue Hematological/Lymphatic: Denies: easy bleeding, easy bruising Allergic/Immunologic: Denies: facial swelling, urticaria Past Medical History - Past Medical History Attestation: Yes The following information was validated with the patient. Source: patient Medical history: Reports: arthritis, cirrhosis, CHF, coronary artery disease, CVA, diabetes, dialysis, GERD, GI bleed, hepatitis, hyperlipidemia, hypertension , liver disease, osteoporosis, peripheral artery disease, renal disease, seizures, TIA, venous stasis, other Surgical history: Reports: cholecystectomy, orthopedic, other, vascular surgery , vasectomy, other Psychiatric history: Reports: anxiety, depression, PTSD, other - Social History Smoking Status: Never smoker Smokeless Tobacco Status: No Alcohol use: Reports: none Drug use: Reports: none Physical Exam - General Limitations: physical limitation General appearance: alert, obese - Head Head exam: atraumatic, normocephalic, normal inspection - Eye Eye exam: Present: PERRL, EOMI, scleral icterus - ENT ENT exam: normal exam, normal oropharynx, mucous membranes moist - Neck Neck exam: Present: normal inspection, full ROM, trachea midline. Absent: tenderness - Chest Chest inspection: Present: normal inspection, symmetric chest wall rise - Respiratory Respiratory exam: Present: other (diminshed BS) - Cardiovascular Cardiovascular exam: Present: regular rate, normal rhythm, normal heart sounds - Abdominal Exam Abdominal exam: Present: soft, tenderness, distention, diminished bowel sounds, ascites Abdominal tenderness: Present: epigastrium, mild - Extremities Exam Extremities exam: Present: normal inspection, full ROM, pedal edema. Absent: tenderness - Back Exam Back exam: Present: normal inspection, full ROM. Absent: tenderness - Neurological Exam Neurological exam: Present: alert, oriented X3 - Psychiatric Psychiatric exam: Present: normal affect, normal mood - Skin Skin exam: Present: warm, dry, intact, other (jaundice) Course Vital Signs Temperature 98.9 F 03/03/16 17:48 Pulse Rate 79 03/03/16 17:48 Respiratory Rate 24 03/03/16 17:48 Blood Pressure 121/89 03/03/16 17:48 O2 Sat by Pulse Oximetry 100 03/03/16 17:48 Temperature 98.9 F 03/03/16 17:48 Pulse Rate 79 03/03/16 17:48 Respiratory Rate 24 03/03/16 17:48 Blood Pressure 121/89 03/03/16 17:48 O2 Sat by Pulse Oximetry 100 03/03/16 17:48 Oxygen Delivery Oxygen Delivery Room Air Medical Decision Making - Medical Records Medical records reviewed: Yes I reviewed the patient's medical records. - Lab Data Lab results reviewed: Yes I reviewed the patient's lab results. - Radiology Data Radiology results reviewed: Yes I reviewed the patient's radiology results. - EKG Data EKG #1 EKG attestation: Yes I reviewed and interpreted this EKG. EKG shows normal: sinus rhythm Rate: normal Rhythm: NSR [place]/QRS: normal Voltage: decreased voltage throughout Heart block present: 1st Degree Interpretation: no acute changes, nonspecific ST-T wave changes S.B.A.R. - S.B.A.R. Transition of Care: I will sign pt out to Dr. Marrufo to await lab and imaging results and to appropriately dispo which is likely admission. 18:50.
[2016-03-03 18:55] LABS: Basophils % 0.5 %; Eosinophils # 0.2 K/mcL (0.0-0.6); Eosinophils % 2.3 %; Hematocrit 20.8 % (37.5-50.1); Hemoglobin 7.1 g/dL (12.9-16.9); Immature Granulocytes % 0.5 % (0-4); Lymphocytes # 0.5 K/mcL (0.6-4.6); Lymphocytes % 6.9 %; Mean Corpuscular HGB Conc 34.1 g/dL (31.6-35.5); Mean Corpuscular Hemoglobin 34.3 pg (28.0-33.3); Mean Corpuscular Volume 100.5 fL (83.0-100.0); Mean Platelet Volume 12.1 fL (9.4-12.4); Monocytes # 0.8 K/mcL (0.0-1.3); Monocytes % 12.8 %; Red Blood Count 2.07 M/mcL (4.19-5.50); Red Cell Distribution Width 24.8 % (11.5-14.5)
[2016-03-03 18:56] LABS: Platelet Count 49 K/mcL (140-400)
[2016-03-03 19:05] LABS: INR 1.8; Prothrombin Time 19.2 Seconds (9.4-12.1)
[2016-03-03 19:11] LABS: Albumin 2.5 g/dL (3.5-5.0); Bilirubin,Direct 1.7 mg/dL (0.0-0.5); Bilirubin,Indirect 1.6 mg/dL (0.0-1.2); Bilirubin,Total 3.3 mg/dL (0.2-1.2); Calcium 7.9 mg/dL (8.6-10.8); Globulin 2.4 g/dL (2.4-3.5); Total Protein 4.9 g/dL (6.0-8.3)
[2016-03-03 19:32] LABS: Anisocytosis 3+ (Not Present); Hypochromasia Present (Not Present); Target Cells 2+ (Not Present); Thyroid Stimulating Hormone 2.201 mcIU/mL (0.350-4.840)
[2016-03-03 19:36] LABS: Platelet Estimate Marked Decrease (Normal)
[2016-03-03] MEDS ORDERED: *HR* OxyCODONE Immed Rel 5 MG TABLET PO PRN (21:08)
[2016-03-03] MEDS ORDERED: Naloxone 0.4 MG/ML INJ IVP PRN (21:08)
[2016-03-03] MEDS ORDERED: Acetaminophen 325 MG TABLET PO PRN (21:08)
[2016-03-03] MEDS ORDERED: *HR* Promethazine 25 MG/ML VIAL IVP PRN (21:08)
[2016-03-03] MEDS ORDERED: *HR* HYDROmorphone (PF) 1 MG/ML SYRINGE IVP PRN (21:08)
[2016-03-03] MEDS ORDERED: *HR* FentaNYL (PF) 100 MCG/2 ML VIAL IVP ONE (21:10)
[2016-03-03] MEDS ORDERED: 0.9 % Sodium Chloride 500 ML IVC SCH (21:15)
[2016-03-03] MEDS ORDERED: Albumin 25% 12.5gm/50mL 12.5 GM/50 ML IV.SOLN IVPB ONE (21:21)
[2016-03-03] MEDS ORDERED: Benzonatate 100 MG CAPSULE PO PRN (21:32)
--- NOTE | 2016-03-03 22:00 | Internal Med History&Physical ---
Date of Encounter: 03/03/16 Time of Encounter: 21:00 Assessment and Plan (1) Anemia, macrocytic Current visit: Yes Status: Chronic . (2) Hepatorenal syndrome Current visit: Yes Status: Chronic . (3) Lactic acidemia Current visit: Yes Status: Acute . (4) Cholestatic jaundice syndrome Current visit: Yes Status: Chronic . (5) Acute on chronic kidney failure Current visit: Yes Status: Acute . (6) Adrenal insufficiency Current visit: Yes Status: Acute . (7) Delirium due to conditions classified elsewhere Current visit: Yes Status: Acute . (8) Demand ischemia of myocardium Current visit: Yes Status: Acute . (9) Elevated troponin I measurement Current visit: Yes Status: Acute . (10) Hepatic encephalopathy Current visit: Yes Status: Acute . (11) Hyperammonemia Current visit: Yes Status: Acute . (12) Hyperbilirubinemia Current visit: Yes Status: Chronic . (13) Ischemia due to increased oxygen demand Current visit: Yes Status: Acute . (14) Lactic acid acidosis Current visit: Yes Status: Acute . (15) Orthostatic hypotension Current visit: Yes Status: Chronic . (16) Physical debility Current visit: Yes Status: Chronic . (17) Severe protein-calorie malnutrition Current visit: Yes Status: Chronic . (18) Symptomatic anemia Current visit: Yes Status: Chronic . (19) Thrombocytopenia Current visit: Yes Status: Chronic . (20) Toxic metabolic encephalopathy Current visit: Yes Status: Acute . (21) Anemia in chronic kidney disease (CKD) Current visit: Yes Status: Chronic . (22) Ascites Current visit: Yes Status: Chronic . Qualifiers: Ascites type: other type Qualified Code(s): R18.8 - Other ascites (23) Coagulopathy Current visit: Yes Status: Chronic . (24) DM (diabetes mellitus), type 2 with renal complications Current visit: Yes Status: Chronic . Qualifiers: Diabetes mellitus complication detail: with other kidney complication Diabetes mellitus mcfp insulin use: without intermediate frame tender use Qualified Code( s): E11.29 - Type 2 diabetes mellitus with other diabetic kidney complication (25) ESRD (end stage renal disease) on dialysis Current visit: Yes Status: Chronic . (26) Hepatic encephalopathy Current visit: Yes Status: Chronic . (27) Hx of esophageal varices Current visit: Yes Status: Chronic . 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 (29) Morbid obesity with BMI of 40.0-44.9, adult Current visit: Yes Status: Chronic . (30) Spinal stenosis of lumbar region at multiple levels Current visit: Yes Status: Chronic . Internal Medicine - H&P: HPI Chief complaint: Difficulty in breathing Admitted From: Emergency Dept Plans for Post Hospital Care: Home History of present illness: Mr. Ponce is a 65 year old male [facility] patient with history significant for Biswas-induced cirrhotic liver disease, portal systemic HTN with ascites and esophageal varices (weekly-biweekly paracenteses), H/O hepatitis B (immune), H/ O hepatitis A (immune), GERD/portal HTN gastropathy/antral vascular ectasia, PUD /duodenitis/GI bleed, nonobst-3vCAD/diastolic CHF/LVEF 65%, osteoarthritis, osteoporosis, gout/hyperuricemia, vitamin D deficiency, postural hypotension, type 2 diabetes mellitus, ESRD HD -dependent (Thursday), H/O CVA/ TIAs, H/O seizures, PTSD, depression and anxiety, hepatic encephalopathy, H/O SBP, anemia of chronic disease, hypertension, dyslipidemia, adrenal insufficiency, morbid obesity, nonsmoker The patient was visited and interviewed and examined. The patient is admitted to [facility] via the emergency department when he presents in the company of family with complaints of difficulty in breathing. The patient was recently hospitalized at [facility] from February 27 to March 02 the same presenting complaint stemming from a symptomatic volume overload and respiratory effort restriction due to large volume ascites. Patient was discharged less than 20 hours prior to his return via the emergency department. The patient had underwent large volume paracenteses during his February admission his hospital stay also involved in management for significant postural hypotension and symptomatic hypoglycemia as well as hemodialysis for his end-stage renal disease. Upon his return to the respiratory reports that his ascites had worsened abruptly. He reported the shortness of breath at rest and with activity paroxysmal dyspnea orthopnea and abdominal discomfort due to distention. He denies any associated fevers chills sweats diarrhea constipation dysuria frequency. Patient has experienced nausea discoloration as well as dry heaves but no emesis. Denies any bleeding events (epistaxis, hemoptysis hematemesis melena or bright red blood per rectum hematochezia hematuria ecchymoses hematoma etc.). Except for the shortness of breath with activity and at rest the patient denies any upper or lower respiratory complaints. He denies chest pain. He denies any dietary or medication indiscretions that this cannot be validated. Findings in the ED: Temperature 98.9 pulse 79 respirations 24 BP 121/89 O2 saturation is 100% room air. WBC 6.5 hemoglobin 7.1 hematocrit 20.8. Platelets 49,000. MCV 100.5 MCH 34.3. RDW 24.8. Differential shows a marked decrease in platelets. PT 19.2 INR 1.8 PTT 26.7. Sodium 135 BUN 41 creatinine 5.76 GFR 10. Glucose 260 osmolality 299. Lactic acid 5.9. Calcium 7.9. Total bilirubin 3.3 direct 1.7 indirect 1.6. AST 48 alkaline phosphatase 148. Ammonia 87. Troponin 0.05 BNP 407. Total protein 4.9 albumin 2.5. Lipase 166. TSH 2.01. EKG normal sinus rhythm. Decreased voltage throughout. First-degree AV block. No acute ischemic changes. Preliminary impressions suggest symptomatic volume overload due to rapid reaccumulation of intra-abdominal ascites. BISWAS-induced cirrhotic liver disease with portal systemic hypertension and severe ascitic fluid reaccumulation requiring weekly elective large volume paracenteses (Child Rabago score class C, MELD-Na score 33, DF score 40.7). This in addition to the patient's scheduled 3 times weekly hemodialysis. Screening studies did not highlight the presence of systemic inflammatory response syndrome or sepsis in the current setting. Coagulopathy secondary to liver disease as well as thrombocytopenia, severe protein caloric malnutrition, transaminitis- hyperbilirubinemia,, etc., also noted. Type 2 diabetes mellitus managed primarily with renal diet plus Starlix taken orally with each meal is apparent. Although the patient has stated his awareness that he is to remain on a renal diet and the respective of sodium intake his has acknowledged that he is not that vigilant in salt restriction. In concert with severe end-stage renal disease noted to evidence of lactic acidemia anemia of chronic disease, hypocalcemia, etc. Troponin 1 elevation and BNP elevation in the setting is likely a spurious due to significant renal failure versus an indicator of demand ischemia in a patient with severe chronic illness. He denies however any chest pain complaints. Given the chronicity of the patient's illness and multisystem derangements it is likely that he is also manifesting a degree of adrenal insufficiency. Independent cortisol measurements have returned lower than expected given the degree of demand the patient is under at the time of acute illness and hospitalization. Steroid supplementation will be entertained. Presenting concerns, clinical findings, frailty and significant debilities the patient is at risk for further acute clinical decline in mobility in this presentation. Workup and treatment will proceed comprehensively. Cumulative laboratory and radiographic data base was reviewed, considered and discussed. Pertinent ancillary medical records including [facility], PCI and [facility] documentation, when available, was reviewed and considered. Given the patient's presenting concerns, past medical history, clinical findings and symptoms, he is admitted at this time will undergo further evaluation and disposition. Orders were written as per the computerized physician order caller system.......................................................................... .................... Consultative opinions will be sought as clinical circumstances justify. Interventional Radiology will be consulted to proceed with diagnostic and therapeutic large volume paracentesis Pain management needs will be addressed. Laboratory and radiographic data base will be updated as appropriate. Studies include: Cultures of blood and urine and sputum, cardiac injury panel, BNP, CK, metabolic and hematologic panel, magnesium, phosphorus, ionized calcium, thyroid panel, lipid profile, A1c, C-peptide, CRP sedimentation rate, respiratory infection profile, respiratory virus panel, blood gas, U/A, cortisol , PTH intact, amylase, lipase, iron studies, coagulation panel, lactic acid, serologies, type and screen, etc. The patient will be transfused 1 unit of platelets concentrate in anticipation for elective paracentesis. When necessary platelet transfusions for counts less than 50,000 in anticipation of procedure or bleeding will be monitored closely. Precautions: Aspiration, fall, seizure, delirium protocol/surveillance initiated. Telemetry with continuous hemodynamic monitoring and pulse oximetry initiated. Orthostatic vital signs. Empiric antibody coverage: Intravenous Rocephin pending culture data. Special studies: CT chest, CT abd/pelvis, chest x-ray, telemetry, EKG. Pulmonary toilet: Incentive spirometry. When necessary aerosol bronchodilator, mucolytic, antitussive. Supplemental oxygen. Corticosteroid therapy. When necessary CPAP/BiPAP supplemental oxygen delivery. Aerosol Mucomyst therapy prn. Fluid and electrolyte repletion efforts will proceed. Careful attention to fluid balance and renal recovery will be emphasized. Avoidance of nephrotoxic exposure and adverse drug drug interaction in the setting of impaired renal function will be monitored closely. Correction of metabolic and acid-base deficits will be emphasized. Acute coronary syndrome protocol/surveillance initiated. DVT and PUD prophylaxis initiated: PPI therapy, intermittent pneumatic cuffs. Subcutaneous heparin was held due to severe thrombocytopenia. Early ambulation will be encouraged. Immunization updates recommended. Influenza and pneumococcal vaccinations as part of ongoing preventative healthcare recommendations strongly recommended. Smoke cessation counseling briefly addressed. Patient is a nonsmoker. Advanced care directive discussion briefly addressed. Patient does not declare any healthcare restrictions at this time. Cardiovascular risk appraisal and cardiovascular risk reduction efforts will be emphasized. Physical and occupational therapy may be consulted to evaluate/assess patient's functional capacity and progress mobility as his circumstances permit. Sliding scale insulin coverage, ADA /renal dietary restraint and schedule an as- needed basis fingerstick glucose assessments were initiated. Nutrition/diabetes education counseling may be considered as circumstances justify. Outpatient medication schedules will be reviewed confirmed and facilitated as appropriate. Reconciliation of home treatments including adjustments, substitutions and reintroduction into the treatment regimen will address necessary maintenance therapies for chronic pre-existing medical conditions. Plan of care has been reviewed and discussed in detail with the patient. Questions addressed. Hospital course is dependent upon collective clinical findings, treatment response and potential consultative interventions. Patient is at risk for further acute clinical decline and morbidity due to his presenting chief complaints, frailty and comorbidities in the setting of multiorgan derangements. Condition is serious. Prognosis is guarded. CODE STATUS is reported as full. Past Med Surg Social Fam HX - Past Medical History Source: old records reviewed Medical history: arthritis, cirrhosis, CHF, coronary artery disease, CVA, diabetes, dialysis, GERD, GI bleed, hepatitis, hyperlipidemia, hypertension, liver disease, osteoporosis, peripheral artery disease, renal disease, seizures , TIA, venous stasis, other Psychiatric history: anxiety, depression, PTSD, other - Past Surgical History Surgical History: cholecystectomy, orthopedic, other, vascular surgery, vasectomy, other - Social History Smoking Status: Never smoker Smokeless Tobacco Status: No Alcohol use: none Drug use: none Occupational status: disabled Current living situation: With Family Activity Level: Independent ambulation, Mostly sedentary Recent Out of Country Travel Within the Last 8 Weeks: No Exposure or Possible Exposure to Illness During Travel: No - Family History Mother Living Status: Hx Family Cardiac Disorders: Yes (chf) Father Living Status: Hx Family Endocrine Disorder: Yes (diabetes) Hx Family Neurologic Disorders: Yes (strokes, Alzheimers) Internal Medicine - H&P: Meds Cholecalciferol (Vitamin D3) [Vitamin D3] 2,000 unit PO DAILY 01/08/15 [History] FLUoxetine HCl [Prozac] 20 mg PO QAM 01/08/15 [History] Allopurinol [Zyloprim 100 MG] 50 mg PO DAILY 03/01/15 [History] Calcium Acetate 667 mg PO TIDWM 06/19/15 [History] Cyclobenzaprine HCl 10 mg PO TID 06/19/15 [History] Aspirin 81 mg PO DAILY 10/09/15 [History] Ondansetron HCl [Zofran] 4 mg PO Q6H PRN 10/12/15 [History] Midodrine [ProAmatine] 10 mg PO 0800,1200,1700 #90 tablet 10/18/15 [Rx] Renal Vitamin [Renal Caps Softgel] 1 mg PO DAILY 12/27/15 [History] Rifaximin [Xifaxan] 550 mg PO BID #60 tablet 01/01/16 [Rx] Nateglinide [Starlix] 60 mg PO TIDWM 02/28/16 [History] Lactulose 30 gm PO BID 03/03/16 [History] Menthol/Camphor [Anti-Itch Lotion] 1 appl TP BID PRN 03/03/16 [History] Omeprazole [PriLOSEC] 40 mg PO DAILY 03/03/16 [History] Sucralfate [Carafate] 1 gm PO BID 03/03/16 [History] Allergies No Known Allergies Allergy (Verified 03/03/16 17:47) All Systems PM: A 10-system review of systems was performed and is negative for pertinent findings except as documented above in the HPI. - Constitutional Constitutional: as per HPI, malaise, weight gain, no chills, no fever(s), no night sweats - EENT Eyes: as per HPI, no change in vision, no discharge, no pain, no photophobia Ears: as per HPI, no ear discharge, no ear pain, no tinnitus Nose, mouth and throat: as per HPI, no dysphagia, no nasal discharge, no neck pain, no sore throat - Cardiovascular Cardiovascular ROS IM: as per HPI, dyspnea, dyspnea on exertion, edema, lightheadedness, no chest pain, no claudication, no diaphoresis, no palpitations , no syncope - Respiratory Respiratory: as per HPI, dyspnea, dyspnea on exertion, no cough, no hemoptysis, no wheezing, no pain on inspiration, no chest congestion, no excessive phlegm production, no change in phlegm color, no pain with cough - Gastrointestinal Gastrointestinal: as per HPI, abdominal pain, bloating, no coffee ground emesis , no constipation, no diarrhea, no heartburn, no hematemesis, no hematochezia, no melena, no nausea, no vomiting - Genitourinary Genitourinary ROS male: as per HPI, other (ANURIA. ) - Musculoskeletal Musculoskeletal ROS IM: as per HPI, no numbness, no tingling - Integumentary Integumentary IM: as per HPI, no rash, no unusual bruising - Neurological Neurological ROS: as per HPI, no confusion, no convulsions, no focal weakness, no numbness, no tingling, no tremor(s) - Psychiatric Psychiatric: as per HPI - Endocrine Endocrine IM: as per HPI - Hematologic/Lymphatic Hematologic/Lymphatic: as per HPI, no easy bruising - Allergic/Immunologic Allergic/Immunologic: as per HPI - Constitutional Vitals: Temp Pulse Resp BP Pulse Ox 98.9 F 75 16 91/30 100 03/03/16 17:48 03/03/16 21:08 03/03/16 21:08 03/03/16 21:08 03/03/16 21:08 General appearance: Present: mild distress, A&O X 3, morbidly obese, answers questions appropriately - Head Head exam: Present: atraumatic, normocephalic - Eye Eye exam: Present: EOMI, PERRL, scleral icterus, conjuntiva pink, sclera anicteric Pupils: Present: normal accommodation - ENT ENT exam: Present: mucous membranes moist, normal external ear exam, normal oropharynx - Neck Neck exam general surgery: Present: full ROM, supple, trachea midline. Absent: lymphadenopathy, tenderness, nuchal rigidity - Respiratory Respiratory exam: Present: chest wall tenderness, decreased breath sounds, CTAB. Absent: accessory muscle use, rales, rhonchi, wheezes - Cardiovascular Cardiovascular exam: Present: distant heart sounds, RRR, +S1, +S2. Absent: diastolic murmur, gallop, rubs, systolic murmur - GI/Abdominal GI/Abdominal exam: Present: diminished bowel sounds, distended, soft, tenderness , no peritoneal signs. Absent: mass, rebound - Extremities Exam Extremities exam: Present: full ROM, warm, radial pulses palpable and symetrical. Absent: calf tenderness, cyanotic, pedal edema, tenderness - Neurological Exam Neurological exam: Present: alert, altered, CN II-XII intact, oriented X3, no focal deficits. Absent: pronater drift, facial droop, speech deficit - Expanded Neurological Exam Coma Scale Eye Opening: Spontaneous Coma Scale Motor Response: Obeys Commands Coma Scale Verbal Response: Oriented Coma Scale Total: 15 - Psychiatric Psychiatric exam: Present: depressed, normal affect - Skin Skin exam: Present: dry, intact, warm. Absent: petechiae, rash, urticaria, vesicles Internal Med - H&P Results - Labs CBC & Chem 7: 03/04/16 06:07 03/04/16 06:07 - Impressions Vital Signs Temp Pulse Resp BP Pulse Ox 03/03/16 21:49 16 90/38 03/03/16 21:08 75 16 91/30 100 03/03/16 19:07 75 18 79/31 96 03/03/16 17:48 98.9 F 79 24 121/89 100 Intake and Output 03/03/16 03/03/16 03/03/16 07:59 15:59 23:59 Other: Weight 97.522 kg Patient Weight 03/03/16 23:59 Weight 97.522 kg Short CBC 03/03/16 Range/Units 18:36 WBC 6.5 (4.3-11.1) K/mcL Hgb 7.1 L (12.9-16.9) g/dL Hct 20.8 L (37.5-50.1) % Plt Count 49 L (140-400) K/mcL Neutrophils # 5.0 (1.6-8.9) K/mcL BMP 03/03/16 Range/Units 18:36 Sodium 135 L (136-145) mEq/L Potassium 4.0 (3.5-4.5) mEq/L Chloride 99 (98-109) mEq/L Carbon Dioxide 21 (19-29) mEq/L BUN 41 H D (8-26) mg/dL Creatinine 5.76 H (0.72-1.25) mg/dL Glucose 260 H (70-99) mg/dL Calcium 7.9 L (8.6-10.8) mg/dL Cardiac Enzymes 03/03/16 Range/Units 18:36 Troponin I 0.05 H* (0-0.03) ng/mL Liver Function 03/03/16 Range/Units 18:36 Total Bilirubin 3.3 H (0.2-1.2) mg/dL Direct Bilirubin 1.7 H (0.0-0.5) mg/dL AST 48 H (5-34) Units/L ALT 34 (0-55) Units/L Alkaline Phosphatase 148 H (38-126) Units/L Albumin 2.5 L (3.5-5.0) g/dL Abnormal lab results RBC 2.07 M/mcL (4.19-5.50) L 03/03/16 18:36 Hgb 7.1 g/dL (12.9-16.9) L 03/03/16 18:36 Hct 20.8 % (37.5-50.1) L 03/03/16 18:36 MCV 100.5 fL (83.0-100.0) H 03/03/16 18:36 MCH 34.3 pg (28.0-33.3) H 03/03/16 18:36 RDW 24.8 % (11.5-14.5) H 03/03/16 18:36 Plt Count 49 K/mcL (140-400) L 03/03/16 18:36 Lymphocytes # 0.5 K/mcL (0.6-4.6) L 03/03/16 18:36 Platelet Estimate Marked Decrease (Normal) L 03/03/16 18:36 Hypochromasia Present (Not Present) A 03/03/16 18:36 Anisocytosis 3+ (Not Present) A 03/03/16 18:36 Target Cells 2+ (Not Present) A 03/03/16 18:36 PT 19.2 Seconds (9.4-12.1) H 03/03/16 18:36 Sodium 135 mEq/L (136-145) L 03/03/16 18:36 BUN 41 mg/dL (8-26) H D 03/03/16 18:36 Creatinine 5.76 mg/dL (0.72-1.25) H 03/03/16 18:36 Est GFR ( Amer) 12 (> 60) L 03/03/16 18:36 Est GFR (Non-Af Amer) 10 (> 60) L 03/03/16 18:36 Glucose 260 mg/dL (70-99) H 03/03/16 18:36 Lactic Acid 5.6 mmol/L (0.5-2.2) H* 03/03/16 18:36 Calcium 7.9 mg/dL (8.6-10.8) L 03/03/16 18:36 Total Bilirubin 3.3 mg/dL (0.2-1.2) H 03/03/16 18:36 Direct Bilirubin 1.7 mg/dL (0.0-0.5) H 03/03/16 18:36 Indirect Bilirubin 1.6 mg/dL (0.0-1.2) H 03/03/16 18:36 AST 48 Units/L (5-34) H 03/03/16 18:36 Alkaline Phosphatase 148 Units/L (38-126) H 03/03/16 18:36 Ammonia 87 mcmol/L (18-72) H 03/03/16 18:36 Troponin I 0.05 ng/mL (0-0.03) H* 03/03/16 18:36 B-Natriuretic Peptide 407 pg/mL (0-100) H 03/03/16 18:36 Serum Total Protein 4.9 g/dL (6.0-8.3) L 03/03/16 18:36 Albumin 2.5 g/dL (3.5-5.0) L 03/03/16 18:36 Albumin/Globulin Ratio 1.0 (1.1-2.2) L 03/03/16 18:36 Lipase 166 Units/L (8-78) H 03/03/16 18:36 Allergies Allergy/AdvReac Type Severity Reaction Status Date / Time No Known Allergies Allergy Verified 03/03/16 17:47 Laboratory Results WBC 6.5 K/mcL (4.3-11.1) 03/03/16 18:36 RBC 2.07 M/mcL (4.19-5.50) L 03/03/16 18:36 Hgb 7.1 g/dL (12.9-16.9) L 03/03/16 18:36 Hct 20.8 % (37.5-50.1) L 03/03/16 18:36 MCV 100.5 fL (83.0-100.0) H 03/03/16 18:36 MCH 34.3 pg (28.0-33.3) H 03/03/16 18:36 MCHC 34.1 g/dL (31.6-35.5) 03/03/16 18:36 RDW 24.8 % (11.5-14.5) H 03/03/16 18:36 Plt Count 49 K/mcL (140-400) L 03/03/16 18:36 MPV 12.1 fL (9.4-12.4) 03/03/16 18:36 Immature Gran % 0.5 % (0-4) 03/03/16 18:36 Seg Neutrophils % 77.0 % 03/03/16 18:36 Lymphocytes % 6.9 % 03/03/16 18:36 Monocytes % 12.8 % 03/03/16 18:36 Eosinophils % 2.3 % 03/03/16 18:36 Basophils % 0.5 % 03/03/16 18:36 Neutrophils # 5.0 K/mcL (1.6-8.9) 03/03/16 18:36 Lymphocytes # 0.5 K/mcL (0.6-4.6) L 03/03/16 18:36 Monocytes # 0.8 K/mcL (0.0-1.3) 03/03/16 18:36 Eosinophils # 0.2 K/mcL (0.0-0.6) 03/03/16 18:36 Basophils # 0.0 K/mcL (0.0-0.2) 03/03/16 18:36 Platelet Estimate Marked Decrease (Normal) L 03/03/16 18:36 Hypochromasia Present (Not Present) A 03/03/16 18:36 Anisocytosis 3+ (Not Present) A 03/03/16 18:36 Target Cells 2+ (Not Present) A 03/03/16 18:36 PT 19.2 Seconds (9.4-12.1) H 03/03/16 18:36 INR 1.8 03/03/16 18:36 APTT 26.7 Seconds (26.0-36.0) 03/03/16 18:36 Sodium 135 mEq/L (136-145) L 03/03/16 18:36 Potassium 4.0 mEq/L (3.5-4.5) 03/03/16 18:36 Chloride 99 mEq/L (98-109) 03/03/16 18:36 Carbon Dioxide 21 mEq/L (19-29) 03/03/16 18:36 BUN 41 mg/dL (8-26) H D 03/03/16 18:36 Creatinine 5.76 mg/dL (0.72-1.25) H 03/03/16 18:36 Est GFR ( Amer) 12 (> 60) L 03/03/16 18:36 Est GFR (Non-Af Amer) 10 (> 60) L 03/03/16 18:36 BUN/Creatinine Ratio 7 (6-26) 03/03/16 18:36 Glucose 260 mg/dL (70-99) H 03/03/16 18:36 Calculated Osmolality 299 (280-300) 03/03/16 18:36 Lactic Acid 5.6 mmol/L (0.5-2.2) H* 03/03/16 18:36 Calcium 7.9 mg/dL (8.6-10.8) L 03/03/16 18:36 Total Bilirubin 3.3 mg/dL (0.2-1.2) H 03/03/16 18:36 Direct Bilirubin 1.7 mg/dL (0.0-0.5) H 03/03/16 18:36 Indirect Bilirubin 1.6 mg/dL (0.0-1.2) H 03/03/16 18:36 AST 48 Units/L (5-34) H 03/03/16 18:36 ALT 34 Units/L (0-55) 03/03/16 18:36 Alkaline Phosphatase 148 Units/L (38-126) H 03/03/16 18:36 Ammonia 87 mcmol/L (18-72) H 03/03/16 18:36 Troponin I 0.05 ng/mL (0-0.03) H* 03/03/16 18:36 B-Natriuretic Peptide 407 pg/mL (0-100) H 03/03/16 18:36 Serum Total Protein 4.9 g/dL (6.0-8.3) L 03/03/16 18:36 Albumin 2.5 g/dL (3.5-5.0) L 03/03/16 18:36 Globulin 2.4 g/dL (2.4-3.5) 03/03/16 18:36 Albumin/Globulin Ratio 1.0 (1.1-2.2) L 03/03/16 18:36 Lipase 166 Units/L (8-78) H 03/03/16 18:36 TSH 2.201 mcIU/mL (0.350-4.840) 03/03/16 18:36 Impressions Chest X-Ray 03/03/16 17:58 IMPRESSION: No evidence of acute cardiopulmonary disease. D/ / Stuart Cunningham MD / Stuart Cunningham MD Interpreting Provider: Stuart Cunningham MD
[2016-03-04] MEDS ORDERED: 0.9 % Sodium Chloride 250 ML ONE ×2 (03:06→14:10)
[2016-03-04 06:22] LABS: Hemoglobin 6.4 g/dL (12.9-16.9); Mean Corpuscular Hemoglobin 34.4 pg (28.0-33.3); Red Blood Count 1.86 M/mcL (4.19-5.50)
[2016-03-04 06:23] LABS: Hematocrit 18.4 % (37.5-50.1); Immature Platelets 4.8 % (1.1-6.1); Mean Corpuscular HGB Conc 34.8 g/dL (31.6-35.5); Mean Corpuscular Volume 98.9 fL (83.0-100.0); Mean Platelet Volume 10.9 fL (9.4-12.4); Red Cell Distribution Width 24.7 % (11.5-14.5)
[2016-03-04 06:31] LABS: Ionized Calcium 0.99 mmol/L (1.15-1.35)
[2016-03-04 06:34] LABS: VBG HCO3 30.9 mEq/L (21-27); VBG PH 7.39 pH Units (7.32-7.42)
[2016-03-04 06:38] LABS: Albumin 2.7 g/dL (3.5-5.0); Albumin/Globulin Ratio 1.1 (1.1-2.2); Bilirubin,Total 2.9 mg/dL (0.2-1.2); Calcium 8.1 mg/dL (8.6-10.8); Chol/HDL Ratio 5.4 (0-4.9); Globulin 2.5 g/dL (2.4-3.5); Magnesium 2.3 mg/dL (1.6-2.6); Phosphorous 6.3 mg/dL (2.3-4.7); Potassium 4.6 mEq/L (3.5-4.5); Total Protein 5.2 g/dL (6.0-8.3)
[2016-03-04 06:39] LABS: Chol/HDL Ratio 5.4 (0-4.9)
[2016-03-04 06:41] LABS: Hemoglobin A1C 4.3 %
[2016-03-04 07:01] LABS: Thyroid Stimulating Hormone 2.659 mcIU/mL (0.350-4.840); Triiodothyronine (T3) Free 1.37 pg/mL (1.71-3.71)
--- NOTE | 2016-03-04 08:45 | Emergency Department Note ---
START Narrative - START START: Patient received in sign out from the day physician pending laboratory evaluation and disposition. Patient states his abdomen is significantly more distended than usual. He has a history of weekly paracentesis was given a large amount of fluids while in the hospital over the weekend. Patient does not feel safe to return home to follow-up with primary care provider. Blood pressure is low at baseline for the patient however most recent was 98/48 in the emergency department room. Patient is anemic at 7.1 with recommendations that he should be greater than 8.5 from his most recent visit. Patient will require blood transfusion however I do not want to overload him or add more to his abdomen. I spoke with the hospitalist regarding the patient's case and presentation who agreed to admit and write for transfusion. Patient will likely receive interventional radiology paracentesis of his abdomen in the a.m. Patient feels comfortable with plan for admission to hospital. He does not describe abdominal pain, fever and therefore SBP is less likely.
[2016-03-04] MEDS: FLUoxetine 20 MG CAPSULE PO SCH (08:56)
[2016-03-04] MEDS: Renal Vitamin 1 MG CAPSULE PO SCH (08:56)
[2016-03-04] MEDS: Cholecalciferol (D-3) 1,000 UNIT TABLET PO SCH (08:57)
[2016-03-04] MEDS: Aspirin 81 MG TAB.CHEW PO SCH (08:57)
[2016-03-04] MEDS: Calcium Acetate 667 MG CAPSULE PO SCH ×3 (08:57→17:01)
[2016-03-04] MEDS ORDERED: Patient Taking Own Medication 1 EACH PO SCH (09:00)
--- NOTE | 2016-03-04 09:51 | Internal Med Progress Note ---
Addendum entered and electronically signed by West Serna DO 03/04/16 16:49: Discussed with IR staff, patient NPO midnight tonight, anticipate pleur-X catheter placement for recurrent abdominal ascites tomorrow. Original Note: <West Serna - Last Filed: 03/04/16 10:22> Date of Encounter: 03/04/16 Time of Encounter: 08:30 - Assessment and plan (1) Hepatic encephalopathy Current Visit: Yes Status: Chronic Assessment and plan: Per admitting H&P documentation. Exam 03/04/16 He is able to affirm name, place (hospital), month. Will resume home lactulose regimen. (2) Anemia Current Visit: No Status: Chronic Assessment and plan: Acute on chronic, baseline 7-8 since Oct 2015. MCV macrocytic anemia, iron panel also s/o concomittant anemia of chronic disease. Patient denies any bloody bm/vomit Transfuse, Hgb <7 Folate/B-12 check and supplement. Qualifiers: Anemia type: other cause Other causes of anemia: chronic disease, other Qualified Code(s): D63.8 - Anemia in other chronic diseases classified elsewhere (3) Cirrhosis of liver with ascites Current Visit: Yes Status: Acute Assessment and plan: Reportedly from Agent orange exposure. MELD 31, 52.6% 3-month mortality. He would undergo weekly therapeutic thoracentesis, last hospital visit here - 03/02/16. Afebrile, no leukocytosis, consideration of SBP. Currently on Day 1 Rocephin. Underwent bedside US guided paracentesis by IR today, await results to guide further management. Albumin infusion. Per documentation, he was discharged 03/02/16 with plan to establish with [place] transplant center. Qualifiers: Hepatic cirrhosis type: unspecified hepatic cirrhosis Qualified Code(s): K74.60 - Unspecified cirrhosis of liver (4) ESRD (end stage renal disease) on dialysis Current Visit: Yes Status: Chronic Assessment and plan: Follows [facility]. Discussed with Dr. Suh, anticipate HD tomorrow. (5) DVT prophylaxis Current Visit: Yes Status: Acute Assessment and plan: EPCDs due to anemia - Subjective Interval history: Patient seen/eval at bedside, he is AO x 3 to name, month, hospital, though recollection of medical history and events prompting hospitalization are vague. He does affirm weekly therapeutic paracentesis. He reports abdominal tightness, difficulty taking full breaths. No fever, chills , nausea, vomit/hematemesis/sputum/hemoptysis, diarrhea. He is unclear whether he is on a transplant list. 65 [facility]M [facility], cirrhosis with ascites, portal HTN, ESRD MWF, h/o CVA, HTN, HLD. Weekly paracentesis @ OR, presents 03/03/16 with dyspnea. CXR negative. Hgb 7.1, 1UPRBC, now 6.4. MELD 31, 52.6% 3-month mortality. Maddrey's DF 36.4. Per documention, cirrhosis 2* agent orange exposure. Currently on Rocephin. 02/15/16 Severe portal hypertensive gastropathy with active oozing different sites, APC done, chronic portal vein thrombosis not a good candidate for TIPS. Recommend periodic CBC, transfuse as needed, coreg/nadalol, Lactulose, Rifaximin and zinc for encephalopathy. Prev hospitalized 02/27 -03/02/16, episodes of hypoglycemia. 03/01 CTAP ss: large vol ascites, cirrhosis, splenomegally, 2.2 cm pancreatic head cyst c/w cyst, pseudocyst, neoplasm. Home meds: Lactulose 30gm PO BID, Midodrine 10mg PO TID, Rifaximin 550mg PO BID 02/28/16 Paracenteiss 02/29/16 Echo EF 65%, moderate LVDD, mild MS, no PAH - Constitutional Vitals: Temp Pulse Resp BP Pulse Ox 98.1 F 75 18 72/24 97 03/04/16 07:11 03/04/16 07:11 03/04/16 07:11 03/04/16 07:11 03/04/16 09:03 General appearance: Present: A&O X 3, pleasant - Head Head exam: Present: atraumatic, normocephalic - Eye Eye exam: Present: EOMI, sclera anicteric - ENT ENT exam: Present: mucous membranes moist Additional comments: no lesions - Neck Neck exam general surgery: Present: supple, trachea midline - Cardiovascular Cardiovascular exam: Present: +S1, +S2. Absent: JVD - GI/Abdominal GI/Abdominal exam: Present: distended, hepatomegaly, soft, splenomegaly, no peritoneal signs. Absent: pulsatile mass, tenderness - Extremities Exam Extremities exam: Present: pedal edema, warm, radial pulses palpable and symetrical. Absent: mottling Additional comments: Mild asterixis elicited - Neurological Exam Neurological exam: Absent: facial droop, speech deficit Internal Medicine: Result - Labs CBC & Chem 7: 03/04/16 06:07 03/04/16 06:07 Labs: Short CBC 03/04/16 Range/Units 06:07 WBC 7.0 (4.3-11.1) K/mcL Hgb 6.4 L (12.9-16.9) g/dL Hct 18.4 L (37.5-50.1) % Plt Count 102 L D (140-400) K/mcL BMP 03/04/16 06:07 Sodium 136 Potassium 4.6 H Chloride 98 Carbon Dioxide 28 BUN 49 H Creatinine 6.39 H Glucose 87 Calcium 8.1 L Cardiac Enzymes 03/03/16 03/04/16 Range/Units 22:45 06:07 Troponin I 0.05 H* 0.06 H* (0-0.03) ng/mL Liver Function 03/04/16 Range/Units 06:07 Total Bilirubin 2.9 H (0.2-1.2) mg/dL AST 46 H (5-34) Units/L ALT 33 (0-55) Units/L Alkaline Phosphatase 139 H (38-126) Units/L Albumin 2.7 L (3.5-5.0) g/dL - ABG Interpretation ABG results: PT/INR, D-dimer PT 19.2 Seconds (9.4-12.1) H 03/03/16 18:36 - VTE Documentation of Mechanical Device: Intermittent pneumatic compression device Consult Discharge Plan - Plan [facility]errals: [facility] [Primary Care Provider] - <Shaheen Kaur - Last Filed: 03/04/16 10:46> Date of Encounter: 03/04/16 - Constitutional Vitals: Temp Pulse Resp BP Pulse Ox 98.1 F 75 18 90/55 97 03/04/16 07:11 03/04/16 07:11 03/04/16 07:11 03/04/16 10:31 03/04/16 09:03 Internal Medicine: Result - Labs CBC & Chem 7: 03/04/16 06:07 01/10/17 06:07 Labs: Short CBC 03/04/16 Range/Units 06:07 WBC 7.0 (4.3-11.1) K/mcL Hgb 6.4 L (12.9-16.9) g/dL Hct 18.4 L (37.5-50.1) % Plt Count 102 L D (140-400) K/mcL BMP 03/04/16 06:07 Sodium 136 Potassium 4.6 H Chloride 98 Carbon Dioxide 28 BUN 49 H Creatinine 6.39 H Glucose 87 Calcium 8.1 L Cardiac Enzymes 03/03/16 03/04/16 Range/Units 22:45 06:07 Troponin I 0.05 H* 0.06 H* (0-0.03) ng/mL Liver Function 03/04/16 Range/Units 06:07 Total Bilirubin 2.9 H (0.2-1.2) mg/dL AST 46 H (5-34) Units/L ALT 33 (0-55) Units/L Alkaline Phosphatase 139 H (38-126) Units/L Albumin 2.7 L (3.5-5.0) g/dL - ABG Interpretation ABG results: PT/INR, D-dimer PT 19.2 Seconds (9.4-12.1) H 03/03/16 18:36 - Attending Attestation I examined this patient and my medical decision-making was reviewed with the Resident Physician Dr Serna. I agree with the documented findings, disposition and treatment plan as described except to the extent set forth below. On exam he is somnolent than noted distress, except reveals scleral icterus. Heart is regular S1-S2. Abdomen distended with dullness to percussion on the flanks. Extremities with 2+ pitting edema. Plan for repeat paracentesis tomorrow versus Tenckhoff catheter placement. I will discuss the goals of care with the patient's family. We will obtain a palliative care consult.
[2016-03-04] MEDS: Albumin 25% 25gram/100mL 25 GM/100 ML IV.SOLN IVC SCH ×2 (10:17→12:25)
--- NOTE | 2016-03-04 10:47 | IR Procedure Note ---
Date of procedure: 03/04/16 Consent Obtained: Verbal consent Timeout: Correct patient and procedure verified, Correct site verified, Time out performed, Skin prep completed Indications: ascites Procedure Performed: paracentesis Site/Technique: 8F sheath Results/Findings: large ascites Estimated blood loss (cc): 0 Complications: None; Tolerated procedure well Post Procedure Treatment Plan: recovery
--- NOTE | 2016-03-04 11:27 | Nephrology Consult Note ---
Date of Encounter: 03/04/16 Time of Encounter: 11:23 Assessment and Plan (1) ESRD (end stage renal disease) on dialysis Current Visit: Yes Status: Chronic Plan for HD tomorrow Continue renal diet Avoid nephrotoxins if possible. (2) Cirrhosis of liver with ascites Current Visit: Yes Status: Acute per primary team Paracentesis this am with 6 liters removed Qualifiers: Hepatic cirrhosis type: unspecified hepatic cirrhosis Qualified Code(s): K74.60 - Unspecified cirrhosis of liver (3) Anemia in chronic kidney disease (CKD) Current Visit: Yes Status: Chronic Hgb down from 7.1 to 6.4 Orders for transfusion for hgb below 7-see primary team's note History of Present Illness - Reason for Consult Consult date: 03/04/16 - Chief Complaint hepatic encephalopathy, cirrhosis of liver with ascites, ESRD - History of Present Illness Mr. Ponce is a 65 year old male well-known to our practice with history significant for Biswas-induced cirrhotic liver disease, portal systemic HTN with ascites and esophageal varices (weekly-biweekly paracenteses), H/O hepatitis B ( immune), H/O hepatitis A (immune), GERD/portal HTN gastropathy/antral vascular ectasia, PUD/duodenitis/GI bleed, nonobst-3vCAD/diastolic CHF/LVEF 65%, osteoarthritis, osteoporosis, gout/hyperuricemia, vitamin D deficiency, postural hypotension, type 2 diabetes mellitus, ESRD HD -dependent (Thursday), H/O CVA/TIAs, H/O seizures, PTSD, depression and anxiety, hepatic encephalopathy, H/O SBP, anemia of chronic disease, hypertension, dyslipidemia, and adrenal insufficiency. states he has a standing appointment every to come in for paracentesis but ended up here yesterday due to difficulty breathing. Review of [employer] liyah shows patient had his full dialysis treatment yesterday at [facility]. Nephrology has been consulted to manage patient's HD treatments while hospitalized. Past Med Surg Social Fam HX - Past Medical History Medical history: arthritis, cirrhosis, CHF, coronary artery disease, CVA, diabetes, dialysis, GERD, GI bleed, hepatitis, hyperlipidemia, hypertension, liver disease, osteoporosis, peripheral artery disease, renal disease, seizures , TIA, venous stasis, other Psychiatric history: anxiety, depression, PTSD, other - Past Surgical History Surgical History: cholecystectomy, orthopedic, other, vascular surgery, vasectomy, other - Social History Smoking Status: Never smoker Smokeless Tobacco Status: No Alcohol use: none Drug use: none - Family History Mother Family Member Ethnicity: Non- Living Status: Age at : 78 Cause of : Heart Attack Hx Family Cardiac Disorders: Yes Father Family Member Ethnicity: Non- Living Status: Age at : 84 Cause of : Cardiac Related Hx Family Cardiac Disorders: Yes ("2-3 strokes") Hx Family Endocrine Disorder: Yes (diabetes) Hx Family Neurologic Disorders: Yes (strokes, Alzheimers) Medications and Allergies Cholecalciferol (Vitamin D3) [Vitamin D3] 2,000 unit PO DAILY 01/08/15 [History] FLUoxetine HCl [Prozac] 20 mg PO QAM 01/08/15 [History] Allopurinol [Zyloprim 100 MG] 50 mg PO DAILY 03/01/15 [History] Calcium Acetate 667 mg PO TIDWM 06/19/15 [History] Cyclobenzaprine HCl 10 mg PO TID 06/19/15 [History] Aspirin 81 mg PO DAILY 10/09/15 [History] Ondansetron HCl [Zofran] 4 mg PO Q6H PRN 10/12/15 [History] Midodrine [ProAmatine] 10 mg PO 0800,1200,1700 #90 tablet 10/18/15 [Rx] Renal Vitamin [Renal Caps Softgel] 1 mg PO DAILY 12/27/15 [History] Rifaximin [Xifaxan] 550 mg PO BID #60 tablet 01/01/16 [Rx] Nateglinide [Starlix] 60 mg PO TIDWM 02/28/16 [History] Lactulose 30 gm PO BID 03/03/16 [History] Menthol/Camphor [Anti-Itch Lotion] 1 appl TP BID PRN 03/03/16 [History] Omeprazole [PriLOSEC] 40 mg PO DAILY 03/03/16 [History] Sucralfate [Carafate] 1 gm PO BID 03/03/16 [History] Allergies No Known Allergies Allergy (Verified 03/03/16 17:47) Review of Systems All Systems: reviewed and no additional remarkable complaints except as stated Constitutional: lethargy, weight gain, no chills, no fever(s) Cardiovascular: dyspnea, dyspnea on exertion, edema Respiratory: dyspnea, dyspnea on exertion Gastrointestinal: abdominal pain, no nausea, no vomiting Integumentary: swelling Psychiatric: no behavioral changes Exam - Vital Signs Vital signs: Initial Vital Signs Temp Pulse Resp BP Pulse Ox 98.9 F 79 24 121/89 100 03/03/16 17:48 03/03/16 17:48 03/03/16 17:48 03/03/16 17:48 03/03/16 17:48 Vital Signs - Last 8 Hours Temp Pulse Resp BP Pulse Ox 03/04/16 10:56 97.6 F 66 14 75/31 96 03/04/16 10:31 90/55 03/04/16 09:03 97 03/04/16 07:11 98.1 F 75 18 72/24 97 03/04/16 03:31 98.1 F 78 18 118/70 100 Intake and Output 03/03/16 03/04/16 03/04/16 23:59 07:59 15:59 Intake Total 0 / 0 603 / 603 Output Total 0 / 0 6000 / 6000 Balance 0 / 0 603 / 603 -6000 / -6000 Intake: IV Fluids 50 / 50 Flexbumin 12.5 gm In 50 50 / 50 ml @ 60 mls/hr IVPB ONCE ONE Rx#:[id number] Oral 0 / 0 240 / 240 Blood Product 293 / 293 Platelet Pheresis Lp Irr 293 / 293 1st Unit [id number] Other 20 / 20 Output: Urine 0 / 0 Peracentesis 6000 / 6000 Other: Weight 98.4 kg 99.7 kg Blood Glucose* 192 92 189 Patient Weight 03/04/16 23:59 Weight 99.7 kg - General Appearance General appearance: chronically ill, frail EENT: ATNC Neck: supple Respiratory: course breath sounds Cardiology: edema, normal S1, normal S2 - Dialysis Access Dialysis Vascular Access: Venous Catheter Gastrointestinal: hepatomegaly, distended Integumentary: warm and dry Results - Lab Results 03/04/16 06:07 03/04/16 06:07 Most recent lab results Calcium 8.1 mg/dL (8.6-10.8) L 03/04/16 06:07 Phosphorus 6.3 mg/dL (2.3-4.7) H 03/04/16 06:07 Magnesium 2.3 mg/dL (1.6-2.6) 03/04/16 06:07 Consult Discharge Plan - Plan [facility]errals: [facility] [Primary Care Provider] -
[2016-03-04] MEDS: Cyanocobalamin (B-12) 1,000 MCG TABLET PO SCH (12:24)
[2016-03-04] MEDS: Lactulose Oral Soln 20 GM/30 ML UDC PO SCH ×2 (12:25→20:17)
--- NOTE | 2016-03-04 14:41 | Palliative - Consult Note ---
Date of Encounter: 03/04/16 Time of Encounter: 14:20 - Assessment and Plan (1) Nausea Current Visit: Yes Status: Acute Assessment and plan: Continue Promethazine PRN. Patient's daughter states this is effective for him and does not cause increased confusion. States Ondansetron usually doesn't work for him. (2) Encephalopathy Current Visit: No Status: Acute Assessment and plan: Continues Lactulose bid and daughter states he is very compliant with this at home. MOnitor (3) Counseling regarding advanced care planning and goals of care Current Visit: Yes Status: Acute Assessment and plan: Discussed with daughter Aleah at bedside, pt slept through most of conversation. currently not in room. Aleah states that pt already has advanced directives in place and , Antonella is primary POA with daughter Aleah as alternate. I could not find these in our [employer] or [employer] system here at [place], and asked they bring a copy of these in. Aleah thought that patient had DNR already in place - when I reviewed several last hospital visits, once in December he was listed as DNR/DNI, but every other hospital visit states FULL CODE. Jack Bullard does definitely want all family to meet and discuss and is to call me with meeting time for Thu or am. Continue to follow. (4) Chronic back pain Current Visit: Yes Status: Acute Assessment and plan: Currently has been comfortable. He takes Tramadol at home, daughter states not extremely helpful, however, other pain medications cause confusion and lethargy. Will monitor Qualifiers: Back pain location: back pain in unspecified location Back pain laterality : unspecified Qualified Code(s): M54.9 - Dorsalgia, unspecified; G89.29 - Other chronic pain (5) Ascites Current Visit: Yes Status: Acute Qualifiers: Ascites type: other type Qualified Code(s): R18.8 - Other ascites (6) Cirrhosis Current Visit: Yes Status: Acute Qualifiers: Hepatic cirrhosis type: unspecified hepatic cirrhosis Ascites presence: with ascites Qualified Code(s): K74.60 - Unspecified cirrhosis of liver (7) ESRD (end stage renal disease) on dialysis Current Visit: Yes Status: Chronic Palliative-CN HPI - Data of Consult Patient: known to practice within the last 3 years Consult date: 03/04/16 Requesting Physician: Shaheen Kaur MD [facility] - Consult Narrative History of present illness: Mr. Ponce is a 65 year old male Mr. Ponce known to palliative care team from December admission with history significant for Biswas-induced cirrhotic liver disease, portal systemic HTN with ascites and esophageal varices (weekly- biweekly paracenteses), H/O hepatitis B (immune), H/O hepatitis A (immune), GERD /portal HTN gastropathy/antral vascular ectasia, PUD/duodenitis/GI bleed, nonobst-3vCAD/diastolic CHF/LVEF 65%, osteoarthritis, osteoporosis, gout/ hyperuricemia, vitamin D deficiency, postural hypotension, type 2 diabetes mellitus, ESRD HD -dependent (Thursday), H/O CVA/TIAs, H/O seizures, PTSD, depression and anxiety, hepatic encephalopathy, H/O SBP, anemia of chronic disease, hypertension, dyslipidemia, and adrenal insufficiency. Patient has had frequent admission for complications related to the above medical issues, and came back in this time for difficulty in breathing and hypotension. He currently is arousable, but somulent and falls back to sleep with conversation. Daughter Aleah is at the bedside. She states that he is on transplant list that the [place] is coordinating between [facility] and recently had heart cath that was required. Receiving 2U blood for decreased hemoglobin today. Palliative care was consulted to assist with symptom management and goals of care/code status discussion. CC: Shaheen Kaur MD Past Med Surg Social Fam HX - Past Medical History Medical history: arthritis, cirrhosis, CHF, coronary artery disease, CVA, diabetes, dialysis, GERD, GI bleed, hepatitis, hyperlipidemia, hypertension, liver disease, osteoporosis, peripheral artery disease, renal disease, seizures , TIA, venous stasis, other Psychiatric history: anxiety, depression, PTSD, other - Past Surgical History Surgical History: cholecystectomy, orthopedic, other, vascular surgery, vasectomy, other - Social History Smoking Status: Never smoker Smokeless Tobacco Status: No Alcohol use: none Drug use: none - Family History Mother Family Member Ethnicity: Non- Living Status: Age at : 78 Cause of : Heart Attack Hx Family Cardiac Disorders: Yes Father Family Member Ethnicity: Non- Living Status: Age at : 84 Cause of : Cardiac Related Hx Family Cardiac Disorders: Yes ("2-3 strokes") Hx Family Endocrine Disorder: Yes (diabetes) Hx Family Neurologic Disorders: Yes (strokes, Alzheimers) Medications and Allergies Cholecalciferol (Vitamin D3) [Vitamin D3] 2,000 unit PO DAILY 01/08/15 [History] FLUoxetine HCl [Prozac] 20 mg PO QAM 01/08/15 [History] Allopurinol [Zyloprim 100 MG] 50 mg PO DAILY 03/01/15 [History] Calcium Acetate 667 mg PO TIDWM 06/19/15 [History] Cyclobenzaprine HCl 10 mg PO TID 06/19/15 [History] Aspirin 81 mg PO DAILY 10/09/15 [History] Ondansetron HCl [Zofran] 4 mg PO Q6H PRN 10/12/15 [History] Midodrine [ProAmatine] 10 mg PO 0800,1200,1700 #90 tablet 10/18/15 [Rx] Renal Vitamin [Renal Caps Softgel] 1 mg PO DAILY 12/27/15 [History] Rifaximin [Xifaxan] 550 mg PO BID #60 tablet 01/01/16 [Rx] Nateglinide [Starlix] 60 mg PO TIDWM 02/28/16 [History] Lactulose 30 gm PO BID 03/03/16 [History] Menthol/Camphor [Anti-Itch Lotion] 1 appl TP BID PRN 03/03/16 [History] Omeprazole [PriLOSEC] 40 mg PO DAILY 03/03/16 [History] Sucralfate [Carafate] 1 gm PO BID 03/03/16 [History] Allergies No Known Allergies Allergy (Verified 03/03/16 17:47) ROS unobtainable: due to mental status Palliative Care-Exam - Constitutional Vitals: Temp Pulse Resp BP Pulse Ox 97.6 F 66 14 75/31 96 03/04/16 10:56 03/04/16 10:56 03/04/16 10:56 03/04/16 10:56 03/04/16 10:56 General appearance: Present: no acute distress - Head Head Exam: Present: normal inspection, normocephalic - Eye Eye exam: Present: normal appearance, PERRL - GI/Abdominal Exam GI/Abdominal exam: Present: distended, soft - Neurological Exam Neurological exam: Present: alert Additional comments: Oriented to person and place. Inappropriate statements at times. Follows simple commands - Psychiatric Psychiatric exam: Present: flat affect - Skin Skin exam: Present: dry, pallor, warm Internal Medicine - CN: Reslt - Labs CBC & Chem 7: 03/04/16 06:07 03/04/16 06:07 Labs: Short CBC 03/04/16 Range/Units 06:07 WBC 7.0 (4.3-11.1) K/mcL Hgb 6.4 L (12.9-16.9) g/dL Hct 18.4 L (37.5-50.1) % Plt Count 102 L D (140-400) K/mcL BMP 03/04/16 06:07 Sodium 136 Potassium 4.6 H Chloride 98 Carbon Dioxide 28 BUN 49 H Creatinine 6.39 H Glucose 87 Calcium 8.1 L Cardiac Enzymes 03/03/16 03/04/16 Range/Units 22:45 06:07 Troponin I 0.05 H* 0.06 H* (0-0.03) ng/mL Liver Function 03/04/16 Range/Units 06:07 Total Bilirubin 2.9 H (0.2-1.2) mg/dL AST 46 H (5-34) Units/L ALT 33 (0-55) Units/L Alkaline Phosphatase 139 H (38-126) Units/L Albumin 2.7 L (3.5-5.0) g/dL - ABG Interpretation ABG results: PT/INR, D-dimer PT 19.2 Seconds (9.4-12.1) H 03/03/16 18:36 Consult Discharge Plan - Plan Referrals: [facility],PCP [Primary Care Provider] - Palliative Quality Palliative Quality: Screen for Code Status: Yes, Screen for Goals of Care: Yes, Screen for Pain: Yes, If Pain Regimen Started, Initiate Bowel Regimen: NA, Screen for Nausea/Vomitting: Yes
--- NOTE | 2016-03-04 14:45 | Electrocardiograph Report ---
[facility] Test Date: 2016-03-03 Pat Name: Raudel Ponce Department: 102 Room: 2A14 Gender: M Director Clinical Pharmacology: Subha : 1950 Requested By: Rodney Santiago Order Number: [id number] Reading MD: Aleah Sorto Measurements Intervals [place] Rate: 77 P: -12 IA: 274 QRS: 7 QRSD: 98 T: 68 QT: 378 QTc: 409 Interpretive Statements SINUS RHYTHM WITH FIRST DEGREE AV BLOCK LOW QRS VOLTAGE IN EXTREMITY LEADS [QRS DEFLECTION < 0.5 mV IN LIMB LEADS] POSSIBLE ANTERIOR MYOCARDIAL INFARCTION [30 ms Q WAVE IN V3/V4, OR R < 0.2 mV IN V4], OF INDETERMINATE AGE Electronically Signed On 03-04-16 14:40:48 EST by Aleah Sorto
[2016-03-04] MEDS ORDERED: *HR* OxyCODONE Immed Rel 5 MG TABLET PO PRN (17:40)
[2016-03-05] MEDS ORDERED: *HR* Dextrose 50 % in Water (Syg) 50 ML SYRINGE ONE (05:45)
[2016-03-05 07:29] LABS: Calcium 8.1 mg/dL (8.6-10.8); Magnesium 2.8 mg/dL (1.6-2.6); Potassium 5.1 mEq/L (3.5-4.5)
[2016-03-05 07:30] LABS: Red Blood Count 1.91 M/mcL (4.19-5.50)
[2016-03-05 07:32] LABS: Hematocrit 18.6 % (37.5-50.1); Hemoglobin 6.4 g/dL (12.9-16.9); Immature Platelets 3.6 % (1.1-6.1); Mean Corpuscular HGB Conc 34.4 g/dL (31.6-35.5); Mean Corpuscular Hemoglobin 33.5 pg (28.0-33.3); Mean Corpuscular Volume 97.4 fL (83.0-100.0); Mean Platelet Volume 11.2 fL (9.4-12.4); Monocytes # 0.8 K/mcL (0.0-1.3); Red Cell Distribution Width 23.4 % (11.5-14.5)
[2016-03-05 07:37] LABS: Platelet Count 65 K/mcL (140-400)
[2016-03-05 07:45] LABS: INR 1.8
[2016-03-05] MEDS: Aspirin 81 MG TAB.CHEW PO SCH (07:58)
[2016-03-05] MEDS: Lactulose Oral Soln 20 GM/30 ML UDC PO SCH ×2 (07:58→21:41)
[2016-03-05] MEDS: Cyanocobalamin (B-12) 1,000 MCG TABLET PO SCH (07:58)
[2016-03-05] MEDS: Calcium Acetate 667 MG CAPSULE PO SCH ×3 (07:58→16:57)
[2016-03-05] MEDS: Renal Vitamin 1 MG CAPSULE PO SCH (07:58)
[2016-03-05] MEDS: FLUoxetine 20 MG CAPSULE PO SCH (07:58)
[2016-03-05] MEDS: Cholecalciferol (D-3) 1,000 UNIT TABLET PO SCH (07:59)
[2016-03-05] MEDS ORDERED: 0.9 % Sodium Chloride 250 ML IV PRN ×2 (08:15→09:51)
--- NOTE | 2016-03-05 09:04 | Palliative Progress Note ---
Date of Encounter: 03/05/16 Time of Encounter: 08:45 - Assessment and plan (1) Chronic back pain Current Visit: Yes Status: Acute Assessment and plan: states that Oxycodone makes pt very confused, asked that he does not receive and he typically only tolerates Tramadol. Will D/C and order Tramadol per home regimen and monitor. Qualifiers: Back pain location: back pain in unspecified location Back pain laterality : unspecified Qualified Code(s): M54.9 - Dorsalgia, unspecified; G89.29 - Other chronic pain (2) Nausea Current Visit: Yes Status: Acute Assessment and plan: Continue antiemetics PRN (3) Encephalopathy Current Visit: No Status: Acute Assessment and plan: Continues on Lactulose bid. Quite alert and conversing today. Able to discuss cath placement and dialysis. (4) Counseling regarding advanced care planning and goals of care Current Visit: Yes Status: Acute Assessment and plan: and sister arrived - presented pt advanced directives and these were copied and place in record. Discussed resuscitation status - decided to proceed with DNR/DNI - state form completed and copies given to her. They are in the "last stages" of workup for transplant and information from heart cath being sent to [facility] for review. However, does understand that he may not be a candidate. SW present and we discussed multiple different options for his care, should be not be found a candidate for transplant. Family verbalized understanding and wrote down information discussed. Will continue to follow. (5) Ascites Current Visit: Yes Status: Acute Qualifiers: Ascites type: other type Qualified Code(s): R18.8 - Other ascites (6) Cirrhosis Current Visit: Yes Status: Acute Qualifiers: Hepatic cirrhosis type: unspecified hepatic cirrhosis Ascites presence: with ascites Qualified Code(s): K74.60 - Unspecified cirrhosis of liver (7) ESRD (end stage renal disease) on dialysis Current Visit: Yes Status: Chronic - Time Spent With Patient Total time spent is greater than 50% in coordination of care (as documented) at patient's floor/unit and/or counseling patient: - Subjective Interval history: Patient awake and alert - awaiting abd pleurx cath placement today and dialysis. Denies discomfort at present and appears in no distress. Hgb 6.4. States eating drinking well. No family currently at bedside. - Constitutional Vitals: Abnormal lab results RBC 1.91 M/mcL (4.19-5.50) L 03/05/16 06:57 Hgb 6.4 g/dL (12.9-16.9) L 03/05/16 06:57 Hct 18.6 % (37.5-50.1) L 03/05/16 06:57 MCH 33.5 pg (28.0-33.3) H 03/05/16 06:57 RDW 23.4 % (11.5-14.5) H 03/05/16 06:57 Plt Count 65 K/mcL (140-400) L 03/05/16 06:57 Lymphocytes # 0.5 K/mcL (0.6-4.6) L 03/03/16 18:36 Platelet Estimate Marked Decrease (Normal) L 03/03/16 18:36 Hypochromasia Present (Not Present) A 03/03/16 18:36 Anisocytosis 3+ (Not Present) A 03/03/16 18:36 Target Cells 2+ (Not Present) A 03/03/16 18:36 PT 20.0 Seconds (9.4-12.1) H 03/05/16 06:57 VBG pO2 64 mmHg (25-40) H 03/04/16 06:07 VBG HCO3 30.9 mEq/L (21-27) H 03/04/16 06:07 Potassium 5.1 mEq/L (3.5-4.5) H 03/05/16 06:57 BUN 69 mg/dL (8-26) H D 03/05/16 06:57 Creatinine 7.92 mg/dL (0.72-1.25) H 03/05/16 06:57 Est GFR ( Amer) 8 (> 60) L 03/05/16 06:57 Est GFR (Non-Af Amer) 7 (> 60) L 03/05/16 06:57 Calculated Osmolality 305 (280-300) H 03/05/16 06:57 Lactic Acid 5.6 mmol/L (0.5-2.2) H* 03/03/16 18:36 Calcium 8.1 mg/dL (8.6-10.8) L 03/05/16 06:57 Ionized Calcium 0.99 mmol/L (1.15-1.35) L 03/04/16 06:07 Phosphorus 6.3 mg/dL (2.3-4.7) H 03/04/16 06:07 Magnesium 2.8 mg/dL (1.6-2.6) H 03/05/16 06:57 Transferrin 82 mg/dL (174-364) L 03/04/16 06:07 Ferritin 651 ng/ml (22-275) H 03/04/16 06:07 Total Bilirubin 2.9 mg/dL (0.2-1.2) H 03/04/16 06:07 Direct Bilirubin 1.7 mg/dL (0.0-0.5) H 03/03/16 18:36 Indirect Bilirubin 1.6 mg/dL (0.0-1.2) H 03/03/16 18:36 AST 46 Units/L (5-34) H 03/04/16 06:07 Alkaline Phosphatase 139 Units/L (38-126) H 03/04/16 06:07 Troponin I 0.06 ng/mL (0-0.03) H* 03/04/16 06:07 C-Reactive Protein 29 mg/L (Less than 5) H 03/03/16 22:45 B-Natriuretic Peptide 407 pg/mL (0-100) H 03/03/16 18:36 Serum Total Protein 5.2 g/dL (6.0-8.3) L 03/04/16 06:07 Albumin 2.7 g/dL (3.5-5.0) L 03/04/16 06:07 HDL Cholesterol 10 mg/dL (40-59) L 03/04/16 06:07 Cholesterol/HDL Ratio 5.4 (0-4.9) H 03/04/16 06:07 Lipase 166 Units/L (8-78) H 03/03/16 18:36 Free T4 0.63 ng/dl (0.70-1.48) L 03/04/16 06:07 Free T3 1.37 pg/mL (1.71-3.71) L 03/04/16 06:07 PTH Intact 270.2 pg/ml (8.5-72.5) H 03/04/16 06:07 General appearance: Present: no acute distress - Respiratory Respiratory exam: Present: CTAB - Expanded Respiratory Exam Location: decreased breath sounds: Left, Right, Lower - GI/Abdominal GI/Abdominal exam: Present: distended, normal bowel sounds - Extremities Exam Extremities exam: Present: normal capillary refill, normal inspection - Neurological Exam Neurological exam: Present: alert, oriented X3, strengths equal and symetr throughout Additional comments: Resting tremor noted lt hand - Skin Skin exam: Present: dry, pallor, warm Palliative Quality Palliative Quality: Screen for Code Status: Yes, Screen for Goals of Care: Yes, Screen for Pain: Yes, If Pain Regimen Started, Initiate Bowel Regimen: NA, Screen for Nausea/Vomitting: Yes - Labs CBC & Chem 7: 03/05/16 06:57 03/05/16 06:57 Labs: Laboratory Results - last 24 hr 03/03/16 03/04/16 03/04/16 22:45 11:00 16:24 WBC RBC Hgb Hct MCV MCH MCHC RDW Plt Count MPV Immature Plt Fraction PT INR Sodium Potassium Chloride Carbon Dioxide BUN Creatinine Est GFR ( Amer) Est GFR (Non-Af Amer) BUN/Creatinine Ratio Glucose POC Glucose 189 H 114 H Calculated Osmolality Calcium Magnesium Blood Type A POSITIVE Antibody Screen NEGATIVE Crossmatch See Detail 03/04/16 03/05/16 03/05/16 21:22 05:10 06:57 WBC 4.4 RBC 1.91 L Hgb 6.4 L Hct 18.6 L MCV 97.4 MCH 33.5 H MCHC 34.4 RDW 23.4 H Plt Count 65 L MPV 11.2 Immature Plt Fraction 3.6 PT INR Sodium Potassium Chloride Carbon Dioxide BUN Creatinine Est GFR ( Amer) Est GFR (Non-Af Amer) BUN/Creatinine Ratio Glucose POC Glucose 150 H 72 Calculated Osmolality Calcium Magnesium Blood Type Antibody Screen Crossmatch 03/05/16 03/05/16 03/05/16 06:57 06:57 07:39 WBC RBC Hgb Hct MCV MCH MCHC RDW Plt Count MPV Immature Plt Fraction PT 20.0 H INR 1.8 Sodium 138 Potassium 5.1 H Chloride 101 Carbon Dioxide 23 BUN 69 H D Creatinine 7.92 H Est GFR ( Amer) 8 L Est GFR (Non-Af Amer) 7 L BUN/Creatinine Ratio 9 Glucose 82 POC Glucose 80 Calculated Osmolality 305 H Calcium 8.1 L Magnesium 2.8 H Blood Type Antibody Screen Crossmatch - Impressions Impressions Paracentesis Ultrasound 03/04/16 00:00 IMPRESSION: Successful ultrasound guided paracentesis. D/ / Pamela Baptiste MD / Pamela Baptiste MD Interpreting Provider: Pamela Baptiste MD - ABG Interpretation ABG results: PT/INR, D-dimer PT 20.0 Seconds (9.4-12.1) H 03/05/16 06:57 Consult Discharge Plan - Plan [facility]errals: [facility] [Primary Care Provider] -
[2016-03-05 09:12] LABS: Eosinophils # 0.4 K/mcL (0.0-0.6); Lymphocytes # 0.2 K/mcL (0.6-4.6)
[2016-03-05 09:17] LABS: Anisocytosis 2+ (Not Present)
[2016-03-05 09:20] LABS: Hypochromasia Present (Not Present)
[2016-03-05 09:21] LABS: Poikilocytosis 1+ (Not Present); Polychromasia 1+ (Not Present); Target Cells 1+ (Not Present)
[2016-03-05 09:22] LABS: Platelet Estimate Decreased (Normal)
--- NOTE | 2016-03-05 10:33 | Discharge Summary ---
Date of Encounter: 03/07/16 Time of Encounter: 09:15 - Discharge Diagnosis (1) Hepatic encephalopathy Status: Acute (2) Anemia Status: Chronic Qualifiers: Anemia type: other cause Other causes of anemia: chronic disease, other Qualified Code(s): D63.8 - Anemia in other chronic diseases classified elsewhere (3) Cirrhosis of liver with ascites Status: Acute Qualifiers: Hepatic cirrhosis type: unspecified hepatic cirrhosis Qualified Code(s): K74.60 - Unspecified cirrhosis of liver (4) ESRD (end stage renal disease) on dialysis Status: Chronic (5) DVT prophylaxis Status: Acute - Discharge Medications Home Medications: Cholecalciferol (Vitamin D3) [Vitamin D3] 2,000 unit PO DAILY 01/08/15 [History] FLUoxetine HCl [Prozac] 20 mg PO QAM 01/08/15 [History] Allopurinol [Zyloprim 100 MG] 50 mg PO DAILY 03/01/15 [History] Calcium Acetate 667 mg PO TIDWM 06/19/15 [History] Cyclobenzaprine HCl 10 mg PO TID 06/19/15 [History] Aspirin 81 mg PO DAILY 10/09/15 [History] Ondansetron HCl [Zofran] 4 mg PO Q6H PRN 10/12/15 [History] Midodrine [ProAmatine] 10 mg PO 0800,1200,1700 #90 tablet 10/18/15 [Rx] Renal Vitamin [Renal Caps Softgel] 1 mg PO DAILY 12/27/15 [History] Rifaximin [Xifaxan] 550 mg PO BID #60 tablet 01/01/16 [Rx] Nateglinide [Starlix] 60 mg PO TIDWM 02/28/16 [History] Lactulose 30 gm PO BID 03/03/16 [History] Menthol/Camphor [Anti-Itch Lotion] 1 appl TP BID PRN 03/03/16 [History] Omeprazole [PriLOSEC] 40 mg PO DAILY 03/03/16 [History] Sucralfate [Carafate] 1 gm PO BID 03/03/16 [History] Allergies/Adverse Reactions: Allergies No Known Allergies Allergy (Verified 03/03/16 17:47) Procedures/tests Complete & Pending: Procedures Performed prior 72 hours Category Date Time Status IR insert vanessa ip cath perc [IR] Routine Exams 03/05/16 Ordered IR paracentesis ultrasound [IR] Routine IR 03/04/16 Completed IR us guide needle place [IR] Routine IR 03/05/16 Ordered Date of admission: 03/03/16 21:08 Primary care physician: PCP LUIS Consults: 03/04/16 08:00 Consult to Interventional Radiology [CONS] Routine Consulting Provider: Radiology Interventional Cols Reason for Consult: Ultrasound Guided Paracentesis in patient with advanced cirrhotic liver disease and ascites requiring weekly paracenteses. Please evaluate and advise.. Call Completed: No 03/04/16 10:04 Consult to Nephrology [CONS] Routine Consulting Provider: [facility] [place] ORIMI/PARG Reason for Consult: ESRD HD, setting of cirrhosis with splenic vein thrombosis, hypertensive gastropathy. Consult for dialysis, d/w Dr. Suh. Thanks. Time Notified: 10:04 Call Completed: Yes 03/04/16 10:40 Consult to [employer] Screen Layout Drafter [CONS] Routine Reason for SW Consult: NCR HH 03/04/16 11:48 Consult to Palliative Care [CONS] Routine Comment: clarify goals of care. Consulting Provider: Palliative [facility] [place] 03/04/16 14:07 Consult to Interventional Radiology [CONS] Routine Consulting Provider: Radiology Interventional Cols Reason for Consult: Pleur-X catheter placement for recurrent ascites. Discussed with IR staff. Thanks. Call Completed: Yes 03/05/16 08:15 Consult to Dialysis [CONS] ONCE 03/05/16 10:00 Consult to Dialysis [CONS] ONCE 03/06/16 08:15 Consult to Dialysis [CONS] ONCE Discharging clinician: Shaheen Kaur Anticipated date of discharge: 03/05/16 - Patient Status Disposition: Transfer [facility] Condition: Fair - Discharge Instructions [facility] With: [facility] [Primary Care Provider] - Interval History: Patient seen/eval, Hgb 6.4, denies bloody stool/vomit/sputum. He would appear comfortable, conversational, AO x 3. Anticipate HD with transfusion 1 U PRBC, then pleur-X catheter placement in afternoon. Hospital course: Pt seen/eval Mr. Ponce is a 65 year old male patient of [facility]. Patient would present to [facility] with chief concern: confusion and dyspnea on . Comorbidities would include: cirrhosis with ascites, portal HTN, ESRD MWF, h/o CVA, HTN, HLD. Weekly paracentesis at [facility]. Significant past evaluations: 02/15/[address] Velazquez: Severe portal hypertensive gastropathy with active oozing different sites, APC done, chronic portal vein thrombosis not a good candidate for TIPS. Recommend periodic CBC, transfuse as needed, coreg/nadalol, Lactulose, Rifaximin and zinc for encephalopathy. Previously hospitalized 02/27 -03/02/16, episodes of hypoglycemia. 03/01/16 CTAP noncontrast: large vol ascites, cirrhosis, splenomegally, 2.2 cm pancreatic head cyst c/w cyst, pseudocyst, neoplasm. 02/28/16 Paracentesis 02/29/16 Echo EF 65%, moderate LVDD, mild MS, no PAH Hospital course: Patient would be transfused PRBC for Hgb MELD 31, 52.6% 3- month mortality. Resumed home meds Lactulose 30gm PO BID, Midodrine 10mg PO TID, Rifaximin 550mg PO BID, with improvement in mental status. Patient would be transfused with 1 UPRBC for Hgb 6.4. 03/04/16 Underwent IR US- guided therapeutic thoracentesis with removal of approximately 6L. Subsequently given Albumin infusion. Palliative service was consulted for clarification of CODE STATUS. The patient is on liver transplant list at [facility]. There was no discussion of hospice measures. 03/05 Hgb 6.4, transfused another unit PRBC during dialysis. Interventional Radiology consulted for pleur-X catheter placement. At time of discharge, patient was clinically improved, hemodynamically stable, progressing to baseline, and agreeable with plan of care. Patient was advised to seek immediate medical attention for any new or worsening symptoms including but not limited to fever, chills, chest pain, chest pressure, dyspnea, cough, abdominal pain, nausea, vomiting, diarrhea, bloody stool, urine and the patient voiced understanding. Patient will follow-up with [facility]. - Time Spent with Patient Total time spent providing and/or coordinating discharge services: - Constitutional Vitals: Temp Pulse Resp BP Pulse Ox 98.0 F 69 17 94/54 98 03/05/16 07:32 03/05/16 07:32 03/05/16 07:32 03/05/16 08:22 03/05/16 07:32 General appearance: Present: A&O X 3, morbidly obese, pleasant, no acute distress, answers questions appropriately - Head Head exam: Present: atraumatic, normocephalic - Eye Eye exam: Present: EOMI, sclera anicteric - ENT ENT exam: Present: mucous membranes moist - Neck Neck exam general surgery: Present: supple, trachea midline - Respiratory Respiratory exam: Present: CTAB. Absent: accessory muscle use, respiratory distress, rhonchi - Cardiovascular Cardiovascular exam: Present: +S1, +S2. Absent: JVD - GI/Abdominal GI/Abdominal exam: Present: hepatomegaly, soft, splenomegaly, no peritoneal signs. Absent: tenderness - Extremities Exam Extremities exam: Present: warm, radial pulses palpable and symetrical. Absent : mottling, pedal edema - Neurological Exam Neurological exam: Absent: facial droop, speech deficit - VTE Documentation of Mechanical Device: Intermittent pneumatic compression device
[2016-03-05] MEDS ORDERED: *HR* Heparin 10,000 UNIT/10 ML VIAL IV PRN (13:06)
[2016-03-05] MEDS ORDERED: 0.9 % Sodium Chloride 3,000 ML ONE (13:25)
--- NOTE | 2016-03-05 13:30 | Internal Med Progress Note ---
Addendum entered and electronically signed by West Serna DO 03/05/16 16:36: Updated that patient is not a candidate for Pleur-X as Pleur-X is considered a palliative measure. Concerns that the patient may withdraw too much fluid at home or become infected through the port. As the patient continues to elect for possible liver transplant, will admin albumin, anticipate discharge tomorrow with powerglide placement, resuming established weekly therapeutic paracentesis. Original Note: <West Serna - Last Filed: 03/05/16 13:27> Date of Encounter: 03/05/16 Time of Encounter: 09:55 - Assessment and plan (1) Hepatic encephalopathy Current Visit: Yes Status: Chronic Assessment and plan: Per admitting H&P documentation. Exam 03/04/16 He is able to affirm name, place (hospital), month, 03/05/16 Remains AO x 3. Cont home, rifaximin and lactulose regimen. Patient Hgb 6.4, will need transfusion during dialysis, then pleur-X catheter placement, would anticipate continuing hospitalization for close monitoring of hemodynamics. Possible dc in AM. (2) Anemia Current Visit: No Status: Chronic Assessment and plan: Acute on chronic, baseline 7-8 since Oct 2015. MCV macrocytic anemia, iron panel also s/o concomittant anemia of chronic disease. Patient denies any bloody bm/vomit Transfuse, Hgb <7 03/04/16 Hgb 6.4, transfused 1 UPRBC 03/05/16 Hgb 6.4, transfuse 1U PRBC in dialysis today. Iron panel c/w Anemia of chronic disease. Qualifiers: Anemia type: other cause Other causes of anemia: chronic disease, other Qualified Code(s): D63.8 - Anemia in other chronic diseases classified elsewhere (3) Cirrhosis of liver with ascites Current Visit: Yes Status: Acute Assessment and plan: Reportedly from Agent orange exposure. MELD 31, 52.6% 3-month mortality. He would undergo weekly therapeutic thoracentesis, last hospital visit here - 03/02/16. Afebrile, no leukocytosis, consideration of SBP is low, Rocephin dc'd. 03/04/16 Underwent bedside US guided therapeutic paracentesis by IR, 6 L removed 03/05/16 Anticipate IR-placement of Pleur-X catheter for recurrent abdominal ascites 2* cirrhosis. Per documentation, he was discharged 03/02/16 with plan to establish with [place] transplant center. Qualifiers: Hepatic cirrhosis type: unspecified hepatic cirrhosis Qualified Code(s): K74.60 - Unspecified cirrhosis of liver (4) ESRD (end stage renal disease) on dialysis Current Visit: Yes Status: Chronic Assessment and plan: Follows [facility]. Discussed with Dr. Suh, anticipate HD today 01/09 (5) DVT prophylaxis Current Visit: Yes Status: Acute Assessment and plan: EPCDs due to anemia - Subjective Interval history: Patient seen/eval at bedside, Hgb 6.4, denies bloody stool/vomit/sputum. He would appear comfortable, conversational, AO x 3. Anticipate HD with transfusion 1 U PRBC, then pleur-X catheter placement in afternoon. - Constitutional Vitals: Temp Pulse Resp BP Pulse Ox 98.5 F 88 14 90/31 98 03/05/16 12:12 03/05/16 12:12 03/05/16 12:12 03/05/16 13:00 03/05/16 07:32 General appearance: Present: A&O X 3, morbidly obese, pleasant, no acute distress, answers questions appropriately - Head Head exam: Present: atraumatic, normocephalic - Eye Eye exam: Present: EOMI, sclera anicteric - ENT ENT exam: Present: mucous membranes moist - Neck Neck exam general surgery: Present: supple, trachea midline - Respiratory Respiratory exam: Present: CTAB. Absent: respiratory distress, rhonchi, wheezes - Cardiovascular Cardiovascular exam: Present: +S1, +S2. Absent: JVD - GI/Abdominal GI/Abdominal exam: Present: distended, hepatomegaly, soft, splenomegaly, no peritoneal signs. Absent: tenderness - Extremities Exam Extremities exam: Present: warm, radial pulses palpable and symetrical. Absent : mottling, pedal edema - Neurological Exam Neurological exam: Absent: facial droop, speech deficit Internal Medicine: Result - Labs CBC & Chem 7: 03/05/16 06:57 03/05/16 06:57 Labs: Short CBC 03/05/16 Range/Units 06:57 WBC 4.4 (4.3-11.1) K/mcL Hgb 6.4 L (12.9-16.9) g/dL Hct 18.6 L (37.5-50.1) % Plt Count 65 L (140-400) K/mcL Neutrophils # 3.0 (1.6-8.9) K/mcL [facility] 03/05/16 06:57 Sodium 138 Potassium 5.1 H Chloride 101 Carbon Dioxide 23 BUN 69 H D Creatinine 7.92 H Glucose 82 Calcium 8.1 L - ABG Interpretation ABG results: PT/INR, D-dimer PT 20.0 Seconds (9.4-12.1) H 03/05/16 06:57 - Impressions Impressions Paracentesis Ultrasound 03/04/16 00:00 IMPRESSION: Successful ultrasound guided paracentesis. D/ / Pamela Baptiste MD / Pamela Baptiste MD Interpreting Provider: Pamela Baptiste MD - VTE Documentation of Mechanical Device: Intermittent pneumatic compression device Consult Discharge Plan - Plan Referrals: [facility] [Primary Care Provider] - <Shaheen Kaur - Last Filed: 03/05/16 18:26> - Constitutional Vitals: Temp Pulse Resp BP Pulse Ox 97.9 F 65 17 96/60 95 03/05/16 15:23 03/05/16 15:23 03/05/16 15:23 03/05/16 15:23 03/05/16 15:23 Internal Medicine: Result - Labs CBC & Chem 7: 03/05/16 06:57 03/05/16 06:57 Labs: Short CBC 03/05/16 Range/Units 06:57 WBC 4.4 (4.3-11.1) K/mcL Hgb 6.4 L (12.9-16.9) g/dL Hct 18.6 L (37.5-50.1) % Plt Count 65 L (140-400) K/mcL Neutrophils # 3.0 (1.6-8.9) K/mcL [facility] 03/05/16 06:57 Sodium 138 Potassium 5.1 H Chloride 101 Carbon Dioxide 23 BUN 69 H D Creatinine 7.92 H Glucose 82 Calcium 8.1 L - ABG Interpretation ABG results: PT/INR, D-dimer PT 20.0 Seconds (9.4-12.1) H 03/05/16 06:57 - Attending Attestation I examined this patient and my medical decision-making was reviewed with the Resident Physician. I agree with the documented findings, disposition and treatment plan as described except to the extent set forth below. Patient's mental status has improved. Continue with lactulose. Patient is not a good candidate for Tenckhoff catheter placement per radiology. Possible discharge tomorrow.
[2016-03-05] MEDS ORDERED: Albumin 25% 25gram/100mL 25 GM/100 ML IV.SOLN IVPB ONE (16:13)
[2016-03-05] MEDS: traMADol 50 MG TABLET PO PRN (17:20)
--- NOTE | 2016-03-05 18:56 | Nephrology Progress Note ---
Date of Encounter: 03/05/16 Time of Encounter: 18:54 - Assessment and Plan (1) Ascites Current Visit: Yes Status: Acute s/p paracentesis. pleurx catheter placed. Qualifiers: Ascites type: other type Qualified Code(s): R18.8 - Other ascites (2) Hepatic encephalopathy Current Visit: Yes Status: Acute Resolved. He seems appropriate at the time of my evaluation. (3) Anemia in chronic kidney disease (CKD) Current Visit: Yes Status: Chronic Transfuse as needed. Evaluate for bleeding. (4) ESRD (end stage renal disease) on dialysis Current Visit: Yes Status: Chronic HD MWF. He is tolerating it well. Subjective Principal diagnosis: ESRD Interval history: Patient was seen on dialysis. He has no complaint. He feels better. ROS otherwise stable. Objective - Vital Signs Vital signs: Vital Signs Temp Pulse Resp BP Pulse Ox 03/05/16 15:23 97.9 F 65 17 96/60 95 03/05/16 13:20 98.5 F 14 109/28 03/05/16 13:15 90/29 03/05/16 13:00 90/31 03/05/16 12:45 102/57 03/05/16 12:30 106/31 03/05/16 12:15 112/48 03/05/16 12:12 98.5 F 88 14 106/44 03/05/16 12:00 96/46 03/05/16 11:56 98.6 F 87 16 105/39 03/05/16 11:45 76/30 03/05/16 11:41 98.3 F 88 14 91/43 03/05/16 11:38 98.2 F 87 16 79/31 03/05/16 11:30 80/28 03/05/16 11:20 98.2 F 86 16 90/35 03/05/16 11:15 85/27 03/05/16 11:05 98.4 F 82 17 86/30 03/05/16 11:00 88/38 03/05/16 10:45 115/37 03/05/16 10:30 89/43 03/05/16 10:15 98.4 F 17 115/42 03/05/16 08:22 94/54 03/05/16 07:32 98.0 F 69 17 74/36 98 03/05/16 04:41 97.8 F 63 18 101/62 97 03/05/16 00:50 98.4 F 72 18 110/67 97 Intake and Output 03/05/16 03/05/16 03/05/16 07:59 15:59 23:59 Intake Total 1900 / 1900 240 / 240 Output Total 850 / 850 0 / 0 Balance 1050 / 1050 240 / 240 Intake: Oral 0 / 0 240 / 240 Blood Product 1400 / 1400 Rbcs Leuko Poor As-1 700 / 700 Unit [id number] Rbcs Leuko Poor As-1 700 / 700 Unit [id number] Intake, Rinseback and 500 / 500 Flushes Output: Urine 0 / 0 0 / 0 Total Dialysis Output 850 / 850 Other: Meal NPO Dinner Percent of Meal Consumed 85% Weight 100.5 kg Blood Glucose* 80 93 Hemodialysis Net Fluid 0 Removed (mL) Patient Weight 03/05/16 23:59 Weight 100.5 kg - General Appearance General appearance: Present: well-developed, well-nourished EENT: Present: ATNC Neck: Present: supple Respiratory: Present: clear Cardiology: Present: no edema, regular rate, regular rhythm Gastrointestinal: Present: normoactive bowel sounds, no tenderness, distended Integumentary: Present: warm and dry Neurologic: Present: alert and oriented x3 Psychiatric: Present: mood/affect appropriate - Lab 03/06/16 05:59 03/06/16 05:59 Most recent lab results Calcium 8.1 mg/dL (8.6-10.8) L 03/05/16 06:57 Phosphorus 6.3 mg/dL (2.3-4.7) H 03/04/16 06:07 Magnesium 2.8 mg/dL (1.6-2.6) H 03/05/16 06:57 - VTE Documentation of Mechanical Device: Intermittent pneumatic compression device Consult Discharge Plan - Plan Referrals: [facility] [Primary Care Provider] -
[2016-03-05] MEDS: Methyl Salicylate/Menthol 28 GM TUBE TP PRN (21:44)
[2016-03-06 06:22] LABS: Mean Corpuscular Volume 97.9 fL (83.0-100.0)
[2016-03-06 06:24] LABS: Hematocrit 23.2 % (37.5-50.1); Hemoglobin 7.9 g/dL (12.9-16.9); Immature Platelets 4.6 % (1.1-6.1); Mean Corpuscular HGB Conc 34.1 g/dL (31.6-35.5); Mean Corpuscular Hemoglobin 33.3 pg (28.0-33.3); Mean Platelet Volume 10.8 fL (9.4-12.4); Red Blood Count 2.37 M/mcL (4.19-5.50); Red Cell Distribution Width 21.8 % (11.5-14.5)
[2016-03-06 06:32] LABS: Calcium 7.9 mg/dL (8.6-10.8); Potassium 4.1 mEq/L (3.5-4.5)
[2016-03-06] MEDS: Cyanocobalamin (B-12) 1,000 MCG TABLET PO SCH (08:33)
[2016-03-06] MEDS: FLUoxetine 20 MG CAPSULE PO SCH (08:33)
[2016-03-06] MEDS: Lactulose Oral Soln 20 GM/30 ML UDC PO SCH ×2 (08:33→21:37)
[2016-03-06] MEDS: Renal Vitamin 1 MG CAPSULE PO SCH (08:33)
[2016-03-06] MEDS: Calcium Acetate 667 MG CAPSULE PO SCH ×3 (08:33→16:36)
[2016-03-06] MEDS: Cholecalciferol (D-3) 1,000 UNIT TABLET PO SCH (08:33)
[2016-03-06] MEDS: Aspirin 81 MG TAB.CHEW PO SCH (08:33)
--- NOTE | 2016-03-06 09:40 | Nephrology Progress Note ---
Date of Encounter: 03/06/16 Time of Encounter: 09:38 - Assessment and Plan (1) ESRD (end stage renal disease) on dialysis Current Visit: Yes Status: Chronic Plan for HD tomorrow Avoid nephrotoxins if possible (2) Cirrhosis of liver with ascites Current Visit: Yes Status: Acute Patient did not get Pleur-X cath; patient states doctors thought it would be safer to continue weekly paracentesis in hospital setting than to have family try and manage Pleur-X cath at home per primary team Qualifiers: Hepatic cirrhosis type: unspecified hepatic cirrhosis Qualified Code(s): K74.60 - Unspecified cirrhosis of liver (3) Anemia in chronic kidney disease (CKD) Current Visit: Yes Status: Chronic Hgb 7.9-improved s/p transfusion Transfuse per parameters per primary team Subjective Principal diagnosis: ESRD Interval history: Patient seen and examined. States feeling better today Objective - Vital Signs Vital signs: Vital Signs Temp Pulse Resp BP Pulse Ox 03/06/16 09:00 98 03/06/16 08:48 101/58 03/06/16 07:34 97.9 F 68 18 71/33 98 03/06/16 05:15 98.3 F 76 18 100/40 96 03/06/16 00:48 98.3 F 70 17 119/57 93 L 03/05/16 20:21 98.5 F 81 17 97/62 81 L 03/05/16 15:23 97.9 F 65 17 96/60 95 03/05/16 13:20 98.5 F 14 109/28 03/05/16 13:15 90/29 03/05/16 13:00 90/31 03/05/16 12:45 102/57 03/05/16 12:30 106/31 03/05/16 12:15 112/48 03/05/16 12:12 98.5 F 88 14 106/44 03/05/16 12:00 96/46 03/05/16 11:56 98.6 F 87 16 105/39 03/05/16 11:45 76/30 03/05/16 11:41 98.3 F 88 14 91/43 03/05/16 11:38 98.2 F 87 16 79/31 03/05/16 11:30 80/28 03/05/16 11:20 98.2 F 86 16 90/35 03/05/16 11:15 85/27 03/05/16 11:05 98.4 F 82 17 86/30 03/05/16 11:00 88/38 03/05/16 10:45 115/37 03/05/16 10:30 89/43 03/05/16 10:15 98.4 F 17 115/42 Intake and Output 03/05/16 03/06/16 03/06/16 23:59 07:59 15:59 Intake Total 240 / 240 160 / 160 Output Total 0 / 0 0 / 0 Balance 240 / 240 160 / 160 0 / 0 Intake: Oral 240 / 240 160 / 160 Output: Urine 0 / 0 0 / 0 Other: Meal Dinner Percent of Meal Consumed 85% Weight 97.5 kg Blood Glucose* 165 148 Patient Weight 03/06/16 23:59 Weight 97.5 kg - General Appearance General appearance: Present: chronically ill, fatigue, frail EENT: Present: ATNC, mucous membranes moist, hearing intact, vision intact Neck: Present: supple Respiratory: Present: clear Cardiology: Present: no edema, normal S1, normal S2 Dialysis Vascular Access: Venous Catheter Gastrointestinal: Present: distended Neurologic: Present: alert and oriented x3 Psychiatric: Present: mood/affect appropriate, cooperative - Lab 03/06/16 05:59 03/06/16 05:59 Most recent lab results Calcium 7.9 mg/dL (8.6-10.8) L 03/06/16 05:59 Phosphorus 6.3 mg/dL (2.3-4.7) H 03/04/16 06:07 Magnesium 2.8 mg/dL (1.6-2.6) H 03/05/16 06:57 - VTE Documentation of Mechanical Device: Intermittent pneumatic compression device Consult Discharge Plan - Plan [facility]: [facility]Primary Care Provider[facility] -
[2016-03-06] MEDS: traMADol 50 MG TABLET PO PRN (10:12)
[2016-03-06] MEDS: Albumin 25% 25gram/100mL 25 GM/100 ML IV.SOLN IVC SCH ×2 (14:24→16:01)
--- NOTE | 2016-03-06 14:55 | Internal Med Progress Note ---
<West Serna - Last Filed: 03/06/16 14:52> Date of Encounter: 03/06/16 Time of Encounter: 09:00 - Assessment and plan (1) Hepatic encephalopathy Current Visit: Yes Status: Chronic Assessment and plan: Per admitting H&P documentation. Exam 03/04/16 He is able to affirm name, place (hospital), month, 03/05/16 Remains AO x 3. Cont home, rifaximin and lactulose regimen. (2) Anemia Current Visit: No Status: Chronic Assessment and plan: Acute on chronic, baseline 7-8 since Oct 2015. MCV macrocytic anemia, iron panel also s/o concomittant anemia of chronic disease. Patient denies any bloody bm/vomit Transfuse, Hgb <7 03/04/16 Hgb 6.4, transfused 1 UPRBC 03/05/16 Hgb 6.4, transfuse 1U PRBC in dialysis today. Iron panel c/w Anemia of chronic disease. 03/06/16 Hgb 7.9 Qualifiers: Anemia type: other cause Other causes of anemia: chronic disease, other Qualified Code(s): D63.8 - Anemia in other chronic diseases classified elsewhere (3) Cirrhosis of liver with ascites Current Visit: Yes Status: Acute Assessment and plan: Reportedly from Agent orange exposure. MELD 31, 52.6% 3-month mortality. He would undergo weekly therapeutic thoracentesis, last hospital visit here - 03/02/16. Afebrile, no leukocytosis, consideration of SBP is low, Kain dc'd. 03/04/16 Underwent bedside US guided therapeutic paracentesis by IR, 6 L removed 03/05/16 Regarding Pleur-X catheter, patient is not a candidate for Pleur-X as Pleur-X is considered a palliative measure. Concerns that the patient may withdraw too much fluid at home or become infected through the port. 03/06/16 Repeat paracentesis 6500cc per report. Will infuse albumin. Qualifiers: Hepatic cirrhosis type: unspecified hepatic cirrhosis Qualified Code(s): K74.60 - Unspecified cirrhosis of liver (4) ESRD (end stage renal disease) on dialysis Current Visit: Yes Status: Chronic Assessment and plan: Follows [facility], anticipate HD tomorrow. (5) DVT prophylaxis Current Visit: Yes Status: Acute Assessment and plan: EPCDs due to anemia - Subjective Interval history: Patient seen/eval at bedside, Hgb steady. He anticipates repeat paracentesis later today. Affirms no fever, chills, chest pain/pressure. - Constitutional Vitals: Temp Pulse Resp BP Pulse Ox 98 F 70 18 114/52 95 03/06/16 11:45 03/06/16 11:45 03/06/16 11:45 03/06/16 13:12 03/06/16 11:45 General appearance: Present: A&O X 3, morbidly obese, pleasant, no acute distress, answers questions appropriately - Head Head exam: Present: atraumatic, normocephalic - Eye Eye exam: Present: EOMI, sclera anicteric - ENT ENT exam: Present: mucous membranes moist - Neck Neck exam general surgery: Present: supple, trachea midline - Respiratory Respiratory exam: Present: decreased breath sounds. Absent: rhonchi, wheezes, tachypnea - Cardiovascular Cardiovascular exam: Present: +S1, +S2. Absent: JVD - GI/Abdominal GI/Abdominal exam: Present: distended, hepatomegaly, splenomegaly, no peritoneal signs. Absent: tenderness - Extremities Exam Extremities exam: Present: warm, radial pulses palpable and symetrical. Absent : mottling - Neurological Exam Neurological exam: Absent: facial droop, speech deficit Internal Medicine: Result - Labs CBC & Chem 7: 03/06/16 05:59 03/06/16 05:59 Labs: Short CBC 03/06/16 Range/Units 05:59 WBC 4.9 (4.3-11.1) K/mcL Hgb 7.9 L D (12.9-16.9) g/dL Hct 23.2 L (37.5-50.1) % Plt Count 58 L (140-400) K/mcL BMP 03/06/16 05:59 Sodium 141 Potassium 4.1 D Chloride 101 Carbon Dioxide 28 BUN 46 H D Creatinine 5.75 H Glucose 149 H Calcium 7.9 L - ABG Interpretation ABG results: PT/INR, D-dimer PT 20.0 Seconds (9.4-12.1) H 03/05/16 06:57 - Impressions Impressions Paracentesis Ultrasound 03/06/16 00:00 IMPRESSION: Successful ultrasound guided paracentesis. D/ / Robert Sylvester MD / Robert Sylvester MD Interpreting Provider: Robert Sylvester MD - VTE Documentation of Mechanical Device: Intermittent pneumatic compression device Consult Discharge Plan - Plan [facility]errals: [facility] [Primary Care Provider] - <Shaheen Kaur - Last Filed: 03/06/16 18:12> - Constitutional Vitals: Temp Pulse Resp BP Pulse Ox 98.3 F 77 16 97/47 98 03/06/16 16:43 03/06/16 16:43 03/06/16 16:43 03/06/16 17:02 03/06/16 16:43 Internal Medicine: Result - Labs CBC & Chem 7: 03/06/16 05:59 03/06/16 05:59 Labs: Short CBC 03/06/16 Range/Units 05:59 WBC 4.9 (4.3-11.1) K/mcL Hgb 7.9 L D (12.9-16.9) g/dL Hct 23.2 L (37.5-50.1) % Plt Count 58 L (140-400) K/mcL BMP 03/06/16 05:59 Sodium 141 Potassium 4.1 D Chloride 101 Carbon Dioxide 28 BUN 46 H D Creatinine 5.75 H Glucose 149 H Calcium 7.9 L - ABG Interpretation ABG results: PT/INR, D-dimer PT 20.0 Seconds (9.4-12.1) H 03/05/16 06:57 - Impressions Impressions Paracentesis Ultrasound 03/06/16 00:00 IMPRESSION: Successful ultrasound guided paracentesis. D/ / Robert Sylvester MD / Robert Sylvester MD Interpreting Provider: Robert Sylvester MD - Attending Attestation I examined this patient and my medical decision-making was reviewed with the Resident Physician. I agree with the documented findings, disposition and treatment plan as described except to the extent set forth below. patient's abdomen is much more distended than yesterday, with dullness to percussion in the flanks, he is due for paracentesis later today. He reports mild shortness of Breath. We will proceed with paracentesis and plan for repeat paracentesis tomorrow. He has a very poor prognosis and is at very high risk for morbidity mortality and complications due to liver failure, end-stage liver cirrhosis and alterations in mental status secondary to hepatic encephalopathy.
[2016-03-06] MEDS: Methyl Salicylate/Menthol 28 GM TUBE TP PRN (16:08)
[2016-03-06 17:01] LABS: Insulin, Free 26 uIU/mL (3-19)
[2016-03-07 05:40] LABS: Hematocrit 22.8 % (37.5-50.1)
[2016-03-07 05:42] LABS: Hemoglobin 7.6 g/dL (12.9-16.9); Immature Platelets 4.5 % (1.1-6.1); Mean Corpuscular HGB Conc 33.3 g/dL (31.6-35.5); Mean Corpuscular Hemoglobin 32.8 pg (28.0-33.3); Mean Corpuscular Volume 98.3 fL (83.0-100.0); Mean Platelet Volume 11.6 fL (9.4-12.4); Red Blood Count 2.32 M/mcL (4.19-5.50); Red Cell Distribution Width 21.4 % (11.5-14.5)
[2016-03-07] MEDS: Renal Vitamin 1 MG CAPSULE PO SCH (05:55)
[2016-03-07] MEDS: Cyanocobalamin (B-12) 1,000 MCG TABLET PO SCH (05:55)
[2016-03-07] MEDS: Aspirin 81 MG TAB.CHEW PO SCH (05:55)
[2016-03-07] MEDS: FLUoxetine 20 MG CAPSULE PO SCH (05:56)
[2016-03-07] MEDS: Cholecalciferol (D-3) 1,000 UNIT TABLET PO SCH (05:56)
[2016-03-07] MEDS: Lactulose Oral Soln 20 GM/30 ML UDC PO SCH ×2 (05:58→20:29)
[2016-03-07 06:00] LABS: Calcium 7.9 mg/dL (8.6-10.8); Magnesium 2.5 mg/dL (1.6-2.6); Potassium 4.7 mEq/L (3.5-4.5)
[2016-03-07] MEDS: Calcium Acetate 667 MG CAPSULE PO SCH ×3 (07:50→16:39)
[2016-03-07] MEDS ORDERED: 0.9 % Sodium Chloride 250 ML IV PRN (08:09)
[2016-03-07] MEDS ORDERED: Albumin 25% 12.5gm/50mL 12.5 GM/50 ML IV.SOLN IVPB PRN (08:09)
[2016-03-07 08:15] LABS: Insulin, Total 33 uIU/mL (3-19)
--- NOTE | 2016-03-07 09:11 | Internal Med Progress Note ---
<West Serna - Last Filed: 03/11/16 14:16> Date of Encounter: 03/07/16 Time of Encounter: 08:50 - Assessment and plan (1) Hepatic encephalopathy Current Visit: Yes Status: Acute Assessment and plan: Per admitting H&P documentation. Exam 03/04/16 He is able to affirm name, place (hospital), month, 03/05/16 Remains AO x 3. Cont home, rifaximin and lactulose regimen. (2) Anemia Current Visit: No Status: Chronic Assessment and plan: Acute on chronic, baseline 7-8 since Oct 2015. MCV macrocytic anemia, iron panel also s/o concomittant anemia of chronic disease. Patient denies any bloody bm/vomit Transfuse, Hgb <7 03/04/16 Hgb 6.4, transfused 1 UPRBC 03/05/16 Hgb 6.4, transfuse 1U PRBC in dialysis today. Iron panel c/w Anemia of chronic disease. 03/06/16 Hgb 7.9 03/07/16 7.6 Qualifiers: Anemia type: other cause Other causes of anemia: chronic disease, other Qualified Code(s): D63.8 - Anemia in other chronic diseases classified elsewhere (3) Cirrhosis of liver with ascites Current Visit: Yes Status: Acute Assessment and plan: Reportedly from Agent orange exposure. MELD 31, 52.6% 3-month mortality. He would undergo weekly therapeutic thoracentesis, last hospital visit here - 03/02/16. Afebrile, no leukocytosis, consideration of SBP is low, Kain dc'd. 03/04/16 Underwent bedside US guided therapeutic paracentesis by IR, 6 L removed 03/05/16 Regarding Pleur-X catheter, patient is not a candidate for Pleur-X as Pleur-X is considered a palliative measure. Concerns that the patient may withdraw too much fluid at home or become infected through the port. 03/06/16 Repeat paracentesis 6500cc per report. Will infuse albumin. 03/07/16 Anticipate repeat paracentesis, abd exam tympanic with fluid wave Qualifiers: Hepatic cirrhosis type: unspecified hepatic cirrhosis Qualified Code(s): K74.60 - Unspecified cirrhosis of liver (4) ESRD (end stage renal disease) on dialysis Current Visit: Yes Status: Chronic Assessment and plan: Follows [facility], HD today (5) DVT prophylaxis Current Visit: Yes Status: Acute Assessment and plan: EPCDs due to anemia - Subjective Interval history: Patient seen/eval in dialysis. He affirms abdominal fullness. No fever, chills , chest pain. - Constitutional Vitals: Temp Pulse Resp BP Pulse Ox 97.6 F 72 16 80/48 97 03/07/16 07:29 03/07/16 07:29 03/07/16 07:29 03/07/16 07:29 03/07/16 07:29 General appearance: Present: A&O X 3, morbidly obese, pleasant, no acute distress, answers questions appropriately - Head Head exam: Present: atraumatic, normocephalic - Eye Eye exam: Present: EOMI, sclera anicteric - ENT ENT exam: Present: mucous membranes moist - Neck Neck exam general surgery: Present: supple, trachea midline - Respiratory Respiratory exam: Present: decreased breath sounds, CTAB. Absent: rhonchi - Cardiovascular Cardiovascular exam: Present: +S1, +S2. Absent: JVD Additional comments: Right permacath access, functional - GI/Abdominal GI/Abdominal exam: Present: distended, hepatomegaly, soft, splenomegaly, no peritoneal signs. Absent: tenderness - Extremities Exam Extremities exam: Present: warm, radial pulses palpable and symetrical. Absent : pedal edema - Neurological Exam Neurological exam: Absent: facial droop, speech deficit Internal Medicine: Result - Labs CBC & Chem 7: 03/11/16 04:06 03/11/16 04:06 Labs: Short CBC 03/07/16 Range/Units 05:15 WBC 4.8 (4.3-11.1) K/mcL Hgb 7.6 L (12.9-16.9) g/dL Hct 22.8 L (37.5-50.1) % Plt Count 59 L (140-400) K/mcL [facility] 03/07/16 05:15 Sodium 137 Potassium 4.7 H Chloride 99 Carbon Dioxide 25 BUN 61 H D Creatinine 6.98 H Glucose 76 Calcium 7.9 L - ABG Interpretation ABG results: PT/INR, D-dimer PT 20.0 Seconds (9.4-12.1) H 03/05/16 06:57 - Impressions Impressions Paracentesis Ultrasound 03/06/16 00:00 IMPRESSION: Successful ultrasound guided paracentesis. D/ / Robert Sylvester MD / Robert Sylvester MD Interpreting Provider: Robert Sylvester MD - VTE Documentation of Mechanical Device: Intermittent pneumatic compression device Consult Discharge Plan - Plan [facility]errals: [facility] [Primary Care Provider] - <Shaheen Kaur - Last Filed: 03/11/16 14:28> - Assessment and plan (1) Abdominal distension Current Visit: Yes Status: Acute (2) Ascites Current Visit: Yes Status: Acute Qualifiers: Ascites type: other type Qualified Code(s): R18.8 - Other ascites (3) Cirrhosis of liver with ascites Current Visit: Yes Status: Acute Qualifiers: Hepatic cirrhosis type: unspecified hepatic cirrhosis Qualified Code(s): K74.60 - Unspecified cirrhosis of liver (4) Hepatic encephalopathy Current Visit: Yes Status: Acute (5) Coagulopathy Current Visit: Yes Status: Chronic (6) ESRD (end stage renal disease) on dialysis Current Visit: Yes Status: Chronic (7) DVT prophylaxis Current Visit: Yes Status: Acute (8) Anemia in chronic kidney disease Current Visit: Yes Status: Chronic - Constitutional Vitals: Temp Pulse Resp BP Pulse Ox 98.4 F 75 16 75/27 95 03/11/16 12:00 03/11/16 12:00 03/11/16 12:00 03/11/16 12:00 03/11/16 12:00 Internal Medicine: Result - Labs CBC & Chem 7: 03/11/16 04:06 03/11/16 04:06 Labs: Short CBC 03/11/16 Range/Units 04:06 WBC 6.0 (4.3-11.1) K/mcL Hgb 7.0 L (12.9-16.9) g/dL Hct 20.7 L (37.5-50.1) % Plt Count 51 L (140-400) K/mcL Neutrophils # 4.1 (1.6-8.9) K/mcL BMP 03/11/16 04:06 Sodium 139 Potassium 4.4 Chloride 100 Carbon Dioxide 26 BUN 54 H D Creatinine 5.67 H Glucose 144 H Calcium 8.3 L Liver Function 03/11/16 Range/Units 04:06 Total Bilirubin 4.1 H D (0.2-1.2) mg/dL AST 40 H (5-34) Units/L ALT 26 (0-55) Units/L Alkaline Phosphatase 105 (38-126) Units/L Albumin 3.1 L (3.5-5.0) g/dL - ABG Interpretation ABG results: PT/INR, D-dimer PT 20.6 Seconds (9.4-12.1) H 03/10/16 04:40 - Impressions Impressions Paracentesis Ultrasound 03/10/16 08:45 IMPRESSION: Successful ultrasound guided paracentesis. D/ / Hector Peterson MD / Hector Peterson MD Interpreting Provider: Hector Peterson MD - Attending Attestation I examined this patient and my medical decision-making was reviewed with the Resident Physician. I agree with the documented findings, disposition and treatment plan as described except to the extent set forth below. Pt here for decompensated liver cirrhosis. heart RRR S1S2 no M/R/G, abd distended, + wave sign, flaknk dullness to percussion Ct diuresis, HD MWF, paracentesis PRN
--- NOTE | 2016-03-07 10:47 | Discharge Summary ---
<[place] - Last Filed: 03/07/16 13:03> Date of Encounter: 03/07/16 Time of Encounter: 10:00 - Discharge Diagnosis (1) Hepatic encephalopathy Priority: Primary Status: Acute (2) Anemia Priority: Primary Status: Chronic Qualifiers: Anemia type: other cause Other causes of anemia: chronic disease, other Qualified Code(s): D63.8 - Anemia in other chronic diseases classified elsewhere (3) Cirrhosis of liver with ascites Priority: Primary Status: Acute Qualifiers: Hepatic cirrhosis type: unspecified hepatic cirrhosis Qualified Code(s): K74.60 - Unspecified cirrhosis of liver (4) ESRD (end stage renal disease) on dialysis Priority: Secondary Status: Chronic (5) DVT prophylaxis Priority: Secondary Status: Acute - Discharge Medications Home Medications: Cholecalciferol (Vitamin D3) [Vitamin D3] 2,000 unit PO DAILY 01/08/15 [History] FLUoxetine HCl [Prozac] 20 mg PO QAM 01/08/15 [History] Allopurinol [Zyloprim 100 MG] 50 mg PO DAILY 03/01/15 [History] Calcium Acetate 667 mg PO TIDWM 06/19/15 [History] Cyclobenzaprine HCl 10 mg PO TID 06/19/15 [History] Aspirin 81 mg PO DAILY 10/09/15 [History] Ondansetron HCl [Zofran] 4 mg PO Q6H PRN 10/12/15 [History] Midodrine [ProAmatine] 10 mg PO 0800,1200,1700 #90 tablet 10/18/15 [Rx] Renal Vitamin [Renal Caps Softgel] 1 mg PO DAILY 12/27/15 [History] Rifaximin [Xifaxan] 550 mg PO BID #60 tablet 01/01/16 [Rx] Nateglinide [Starlix] 60 mg PO TIDWM 02/28/16 [History] Lactulose 30 gm PO BID 03/03/16 [History] Menthol/Camphor [Anti-Itch Lotion] 1 appl TP BID PRN 03/03/16 [History] Omeprazole [PriLOSEC] 40 mg PO DAILY 03/03/16 [History] Sucralfate [Carafate] 1 gm PO BID 03/03/16 [History] Allergies/Adverse Reactions: Allergies No Known Allergies Allergy (Verified 03/03/16 17:47) Procedures/tests Complete & Pending: Procedures Performed prior 72 hours Category Date Time Status IR paracentesis ultrasound [IR] Routine IR 03/06/16 Completed Date of admission: 03/03/16 21:08 Primary care physician: PCP LUIS Consults: 03/04/16 08:00 Consult to Interventional Radiology [CONS] Routine Consulting Provider: Radiology Interventional Cols Reason for Consult: Ultrasound Guided Paracentesis in patient with advanced cirrhotic liver disease and ascites requiring weekly paracenteses. Please evaluate and advise.. Call Completed: No 03/04/16 10:04 Consult to Nephrology [CONS] Routine Consulting Provider: Kidney Spclst Emy HANNAH/JORGE Reason for Consult: ESRD HD, setting of cirrhosis with splenic vein thrombosis, hypertensive gastropathy. Consult for dialysis, d/w Dr. Suh. Thanks. Time Notified: 10:04 Call Completed: Yes 03/04/16 10:40 Consult to Offal Roller [CONS] Routine Reason for SW Consult: NCR HH 03/04/16 11:48 Consult to Palliative Care [CONS] Routine Comment: clarify goals of care. Consulting Provider: Palliative Care Emy 03/04/16 14:07 Consult to Interventional Radiology [CONS] Routine Consulting Provider: Radiology Interventional Cols Reason for Consult: Pleur-X catheter placement for recurrent ascites. Discussed with IR staff. Thanks. Call Completed: Yes 03/05/16 08:15 Consult to Dialysis [CONS] ONCE 03/05/16 10:00 Consult to Dialysis [CONS] ONCE 03/05/16 16:13 Consult to PICC team [Consult to Invasive Line Access Team] [CONS] Routine Reason for Consult: powerglide insertion - known cirrhosis with ascites - poor peripheral access, need for weekly albumin infusions. Has required weekly hospital visits for paracentesis. OK to place in AM 03/06/16 Line Type: EPIV 03/06/16 08:15 Consult to Dialysis [CONS] ONCE 03/07/16 08:15 Consult to Dialysis [CONS] ONCE 03/07/16 09:39 Consult to Interventional Radiology [CONS] Routine Consulting Provider: Radiology Interventional Cols Reason for Consult: Therapeutic US-guided paracentesis, recurring ascites. Call Completed: No Discharging clinician: Shaheen Kaur Anticipated date of discharge: 03/07/16 - Patient Status Disposition: Transfer [facility] Condition: Fair Functional capacity at discharge: independent ambulation Overall status at discharge: patient is not back to baseline - Discharge Instructions [facility] With: [facility]Primary Care Provider] - - Diet and Activity Activity: increase activity as tolerated Diet: advance to your usual diet, other (renal) Hospital course: Mr. Ponce is a 65 year old male who is an established patient of the [facility]. He would have prior establishment with the [facility] for evaluation of liver transplant. He has significant history cirrhosis with ascites, portal HTN, ESRD MWF, h/o CVA , HTN, HLD. He would have weekly therapeutic paracentesis for relief of dyspnea. Prior workup would disclose EGD 02/15/16 Severe portal hypertensive gastropathy with active oozing different sites, APC done, chronic portal vein thrombosis not a good candidate for TIPS. Recommend periodic CBC, transfuse as needed, coreg/nadalol, Lactulose, Rifaximin and zinc for encephalopathy. He was previously hospitalized 02/27 -03/02/16, episodes of hypoglycemia. 03/01 CTAP ss: large vol ascites, cirrhosis, splenomegally, 2.2 cm pancreatic head cyst c/w cyst, pseudocyst, neoplasm. Patient would present to [facility] on 03/03/16 with chief concern of dyspnea, accompanied by abdominal distension. Consistent with ascites. He did have some confusion on admission suggestive of hepatic encephalopathy as well. Resumed home rifaximin and lactulose regimen, improvement to AO x 3. Transfused PRBC as necessary for Hgb<7. Patient would have his scheduled HD sessions with [facility] while in- house MWF. Clinical course and vitals, labs would not suggest evidence of SBP. Interventional Radiology consulted for US-guided paracentesis: Had 6L removal on 03/04/16. He would undergo albumin infusions to maintain intravascular volume status. Blood pressures were chronically on the low side with SBP 70-80's, still maintaining baseline mentation. Calculated MELD 31, 52.6% 3-month mortality. He would have reaccumulation of ascites, prompting repeat paracentesis on with 6.5L removal. Palliative team consulted for CODE STATUS discussion. Discussed resuscitation status - MPOA Antonella Ponce decided to proceed with DNR/DNI - state form completed and copies given to her. We did consider possibility of pleur-X catheter placement. The patient is not a candidate for Pleur-X as Pleur-X is considered a palliative measure. Concerns that the patient may withdraw too much fluid at home or become infected through the port. The patient and continued to elect for liver transplant. On 03/07/16, Mr oPnce would undergo his scheduled hemodialysis. Exam would note continued abdominal distension with fluid wave and patient discomfort. He would have albumin infusions for maintenance of intravascular volume. Given his progressive course in re-accumulation of ascites, the nephrology and primary team shared consensus that the patient warrants urgent evaluation for liver transplant. His estimated 3 month mortality based on MELD score of 41 is 52.6%. He was previously established at [facility]. I called the patient's spouse and updated her on the course and reason for transfer, and she was agreeable. I placed call to the [facility] [place]. The inpatient transfer line was an answering machine. I left my name, contact information, and the patient's name as well as last 4 digits SSN and reason for urgent transfer on 10 :15 AM. Awaiting return call. Patient was advised to seek immediate medical attention for any new or worsening symptoms including but not limited to fever, chills, chest pain, chest pressure, dyspnea, cough, abdominal pain, nausea, vomiting, diarrhea, bloody stool, urine and the patient voiced understanding. Patient will follow-up with primary care physician at the [facility]. - Time Spent with Patient Total time spent providing and/or coordinating discharge services: Greater than 30 minutes - Constitutional Vitals: Temp Pulse Resp BP Pulse Ox 97.6 F 72 16 80/48 97 03/07/16 07:29 03/07/16 07:29 03/07/16 07:29 03/07/16 07:29 03/07/16 07:30 General appearance: Present: A&O X 3, morbidly obese, pleasant, no acute distress, answers questions appropriately - Head Head exam: Present: atraumatic, normocephalic - Eye Eye exam: Present: EOMI, scleral icterus - ENT ENT exam: Present: mucous membranes moist - Neck Neck exam general surgery: Present: supple, trachea midline - Respiratory Respiratory exam: Present: CTAB. Absent: stridor, wheezes - Cardiovascular Cardiovascular exam: Present: +S1, +S2. Absent: JVD Additional comments: Right chest permacath - GI/Abdominal GI/Abdominal exam: Present: distended (tympany to percussion), hepatomegaly, soft, splenomegaly, no peritoneal signs - Extremities Exam Extremities exam: Present: warm, radial pulses palpable and symetrical. Absent : pedal edema - Neurological Exam Neurological exam: Absent: facial droop, speech deficit - VTE Documentation of Mechanical Device: Intermittent pneumatic compression device <Shaheen Kaur - Last Filed: 03/07/16 16:36> Procedures/tests Complete & Pending: Procedures Performed prior 72 hours Category Date Time Status IR paracentesis ultrasound [IR] Routine IR 03/06/16 Completed Date of admission: 03/03/16 21:08 [facility] care [facility]: [facility]CP [facility] Consults: 03/04/16 08:00 Consult to Interventional Radiology [CONS] Routine Consulting Provider: Radiology Interventional Cols Reason for Consult: Ultrasound Guided Paracentesis in patient with advanced cirrhotic liver disease and ascites requiring weekly paracenteses. Please evaluate and advise.. Call Completed: No 03/04/16 10:04 Consult to Nephrology [CONS] Routine Consulting Provider: Kidney Spclst Emy HANNAH/JORGE Reason for Consult: ESRD HD, setting of cirrhosis with splenic vein thrombosis, hypertensive gastropathy. Consult for dialysis, d/w Dr. Suh. Thanks. Time Notified: 10:04 Call Completed: Yes 03/04/16 10:40 Consult to Offal Roller [CONS] Routine Reason for SW Consult: NCR HH 03/04/16 11:48 Consult to Palliative Care [CONS] Routine Comment: clarify goals of care. Consulting Provider: Palliative Care Emy 03/04/16 14:07 Consult to Interventional Radiology [CONS] Routine Consulting Provider: Radiology Interventional Cols Reason for Consult: Pleur-X catheter placement for recurrent ascites. Discussed with IR staff. Thanks. Call Completed: Yes 03/05/16 08:15 Consult to Dialysis [CONS] ONCE 03/05/16 10:00 Consult to Dialysis [CONS] ONCE 03/05/16 16:13 Consult to PICC team [Consult to Invasive Line Access Team] [CONS] Routine Reason for Consult: powerglide insertion - known cirrhosis with ascites - poor peripheral access, need for weekly albumin infusions. Has required weekly hospital visits for paracentesis. OK to place in AM 03/06/16 Line Type: EPIV 03/06/16 08:15 Consult to Dialysis [CONS] ONCE 03/07/16 08:15 Consult to Dialysis [CONS] ONCE Hospital course: Mr. Ponce is a 65 year old male - Time Spent with Patient Total time spent providing and/or coordinating discharge services: - Constitutional Vitals: Temp Pulse Resp BP Pulse Ox 99.5 F 75 16 100/50 100 03/07/16 15:40 03/07/16 15:40 03/07/16 15:40 03/07/16 15:40 03/07/16 15:40 - Attending Attestation I examined this patient and my medical decision-making was reviewed with the Resident Physician. I agree with the documented findings, disposition and treatment plan as described except to the extent set forth below. I have called [facility] in [place] and asked for transfer for the patient to be evaluated for liver transplant. They will collect information and return my call within 2-3 days. [facility] [place] [facility] as [facility] transfer however data will have beds available I will. I was advised to call daily to check for bed availability. I have shared this information with the family. He is at very high risk for morbidity mortality and complications due to advanced liver failure and mental status changes secondary to hepatic encephalopathy.
[2016-03-07] MEDS: Albumin 25% 25gram/100mL 25 GM/100 ML IV.SOLN IVC SCH ×4 (10:52→17:24)
--- NOTE | 2016-03-07 11:04 | Nephrology Progress Note ---
Date of Encounter: 03/07/16 Time of Encounter: 10:15 - Assessment and Plan (1) ESRD (end stage renal disease) on dialysis Current Visit: Yes Status: Chronic HD today for clearance. Next HD would be planned for Thursday. I reviewed his vitals, labs, meds and dialysis pressures. Thank you. Subjective Principal diagnosis: ESRD Interval history: pt was s/e while on dialysis. He did not affirm N/V/D or cramping or dizziness while seen on dialysis. We discussed his BP, fluid goals and his liver history. Objective - Vital Signs Vital signs: Vital Signs Temp Pulse Resp BP Pulse Ox 03/07/16 07:30 97 03/07/16 07:29 97.6 F 72 16 80/48 97 03/07/16 05:42 98 F 75 16 76/45 96 03/07/16 00:34 98.4 F 66 16 73/35 96 03/06/16 21:46 97.7 F 65 16 72/32 98 03/06/16 17:02 97/47 03/06/16 16:50 78/34 03/06/16 16:43 98.3 F 77 16 98 03/06/16 13:12 114/52 03/06/16 11:45 98 F 70 18 95/36 95 Intake and Output 03/06/16 03/07/16 03/07/16 23:59 07:59 15:59 Intake Total 900 / 900 300 / 300 240 / 240 Output Total 0 / 0 Balance 900 / 900 300 / 300 240 / 240 Intake: IV Fluids 100 / 100 Flexbumin 25 gm In 100 ml 100 / 100 @ 60 mls/hr IVC .[id number] [facility] Rx#:[id number] Oral 800 / 800 300 / 300 240 / 240 Output: Urine 0 / 0 Other: Meal Breakfast Percent of Meal Consumed 100% Weight 95.44 kg Blood Glucose* 165 109 Patient Weight 03/07/16 23:59 Weight 95.44 kg - General Appearance General appearance: Present: well-developed, well-nourished, chronically ill, frail EENT: Present: ATNC, PERRL, mucous membranes moist Neck: Present: supple Respiratory: Present: clear Cardiology: Present: regular rate, normal S1, normal S2 Dialysis Vascular Access: Venous Catheter (RIJ Tunneled Dialysis Catheter was C/ D/I) Gastrointestinal: Present: normoactive bowel sounds, no guarding, distended Integumentary: Present: no rash, warm and dry Neurologic: Present: no focal deficit, no asterixis, alert and oriented x3 Musculoskeletal: Present: no deformities, no erythema, no clubbing Psychiatric: Present: mood/affect appropriate, cooperative - Lab 03/07/16 05:15 03/07/16 05:15 Most recent lab results Calcium 7.9 mg/dL (8.6-10.8) L 03/07/16 05:15 Phosphorus 6.3 mg/dL (2.3-4.7) H 03/04/16 06:07 Magnesium 2.5 mg/dL (1.6-2.6) 03/07/16 05:15 - VTE Documentation of Mechanical Device: Intermittent pneumatic compression device Consult Discharge Plan - Plan [facility]errals: [facility] [Primary Care Provider] -
[2016-03-08 07:29] LABS: Calcium 8.4 mg/dL (8.6-10.8); Magnesium 2.4 mg/dL (1.6-2.6); Potassium 4.2 mEq/L (3.5-4.5)
[2016-03-08 07:31] LABS: Hemoglobin 6.6 g/dL (12.9-16.9); Mean Corpuscular Hemoglobin 33.5 pg (28.0-33.3); Red Blood Count 1.97 M/mcL (4.19-5.50)
[2016-03-08 07:32] LABS: Immature Platelets 7.3 % (1.1-6.1); Mean Corpuscular Volume 101.5 fL (83.0-100.0); Mean Platelet Volume 11.2 fL (9.4-12.4); Red Cell Distribution Width 22.6 % (11.5-14.5)
[2016-03-08] MEDS: Aspirin 81 MG TAB.CHEW PO SCH (08:42)
[2016-03-08] MEDS: Renal Vitamin 1 MG CAPSULE PO SCH (08:42)
[2016-03-08] MEDS: Cyanocobalamin (B-12) 1,000 MCG TABLET PO SCH (08:42)
[2016-03-08] MEDS: Cholecalciferol (D-3) 1,000 UNIT TABLET PO SCH (08:42)
[2016-03-08] MEDS: FLUoxetine 20 MG CAPSULE PO SCH (08:43)
[2016-03-08] MEDS: Lactulose Oral Soln 20 GM/30 ML UDC PO SCH ×2 (08:43→23:31)
[2016-03-08] MEDS: Calcium Acetate 667 MG CAPSULE PO SCH ×3 (08:43→18:40)
[2016-03-08] MEDS: traMADol 50 MG TABLET PO PRN (13:15)
[2016-03-08] MEDS ORDERED: Albumin 25% 25gram/100mL 25 GM/100 ML IV.SOLN IVPB ONE ×2 (18:20→18:22)
--- NOTE | 2016-03-08 18:26 | Internal Med Progress Note ---
Date of Encounter: 03/08/16 Time of Encounter: 18:23 - Assessment and plan (1) Abdominal distension Current Visit: Yes Status: Acute Assessment and plan: Secondary to tension and sinus. I will perform large-volume therapeutic abdominal paracentesis. Patient requires paracentesis every 2-3 days. (2) Ascites Current Visit: Yes Status: Acute Assessment and plan: Diagnostic and therapeutic paracentesis today. Qualifiers: Ascites type: other type Qualified Code(s): R18.8 - Other ascites (3) Cirrhosis of liver with ascites Current Visit: Yes Status: Acute Assessment and plan: Reportedly from Agent orange exposure. MELD 31, 52.6% 3-month mortality. He would undergo weekly therapeutic thoracentesis, last hospital visit here - 03/02/16. Afebrile, no leukocytosis, consideration of SBP is low, Kain dc'd. 03/04/16 Underwent bedside US guided therapeutic paracentesis by IR, 6 L removed 03/05/16 Regarding Pleur-X catheter, patient is not a candidate for Pleur-X as Pleur-X is considered a palliative measure. Concerns that the patient may withdraw too much fluid at home or become infected through the port. 03/06/16 Repeat paracentesis 6500cc per report. Will infuse albumin. 03/07/16 did not get paracentesis done by IR. \03/08/2016: Patient was referred for transfer to the [facility] which is a liver transplant center. I performed abdominal paracentesis and will infuse albumin. Qualifiers: Hepatic cirrhosis type: unspecified hepatic cirrhosis Qualified Code(s): K74.60 - Unspecified cirrhosis of liver (4) Hepatic encephalopathy Current Visit: Yes Status: Acute Assessment and plan: Per admitting H&P documentation. Exam 03/04/16 He is able to affirm name, place (hospital), month, 03/05/16 Remains AO x 3. Cont home, rifaximin and lactulose regimen. He is at high risk for Mariah Hayden and complications due to end-stage cirrhosis and acute changes in mental status secondary to hepatic encephalopathy. (5) Coagulopathy Current Visit: Yes Status: Chronic (6) ESRD (end stage renal disease) on dialysis Current Visit: Yes Status: Chronic Assessment and plan: Follows [facility], HD today (7) DVT prophylaxis Current Visit: Yes Status: Acute (8) DVT prophylaxis Current Visit: Yes Status: Acute Assessment and plan: EPCDs due to anemia and thrombocytopenia - Subjective Interval history: Patient reports severe abdominal distention much worse since yesterday, associated with shortness of breath which is positional worse when lying back, better when lying on his side. Denies any associated abdominal pain nausea vomiting and fever. - Constitutional Vitals: Temp Pulse Resp BP Pulse Ox 98.4 F 65 16 110/60 92 L 03/08/16 16:18 03/08/16 16:18 03/08/16 16:18 03/08/16 16:18 03/08/16 16:18 General appearance: Present: A&O X 3, morbidly obese, pleasant, no acute distress, answers questions appropriately - Head Head exam: Present: atraumatic, normocephalic - Eye Eye exam: Present: PERRL, scleral icterus, conjuntiva pink Pupils: Present: PERRL - Respiratory Respiratory exam: Present: CTAB. Absent: accessory muscle use, rales, rhonchi, wheezes - Cardiovascular Cardiovascular exam: Present: RRR, +S1, +S2. Absent: diastolic murmur, gallop, rubs, systolic murmur - GI/Abdominal GI/Abdominal exam: Present: distended, normal bowel sounds, soft, splenomegaly, no peritoneal signs. Absent: tenderness Additional comments: Large abdominal ascites - Skin Skin exam: Present: dry, intact Internal Medicine: Result - Labs CBC & Chem 7: 03/08/16 06:22 03/08/16 06:22 Labs: Short CBC 03/08/16 Range/Units 06:22 WBC 4.1 L (4.3-11.1) K/mcL Hgb 6.6 L (12.9-16.9) g/dL Hct 20.0 L (37.5-50.1) % Plt Count 48 L (140-400) K/mcL BMP 03/08/16 06:22 Sodium 142 Potassium 4.2 Chloride 100 Carbon Dioxide 26 BUN 43 H D Creatinine 5.25 H Glucose 107 H Calcium 8.4 L - ABG Interpretation ABG results: PT/INR, D-dimer PT 20.0 Seconds (9.4-12.1) H 03/05/16 06:57 - VTE Documentation of Mechanical Device: Intermittent pneumatic compression device Consult Discharge Plan - Plan [facility]errals: [facility] [Primary Care Provider] -
--- NOTE | 2016-03-08 18:38 | Event Note ---
Date of Encounter: 03/08/16 Time of Encounter: 17:40 Abdominal paracentesis procedure note Indication: Tension ascites Studio Director: Shaheen Kaur MD Timeout: [id number]. Procedure: Patient was positioned supine, left lower quadrant was imaged with ultrasound and a spot was identified and marked lower there was a large pocket of ascitic fluid and no bulges noted close to the abdominal wall. Abdominal wall was prepped and draped and a usual sterile fashion. The marked site was infiltrated with lidocaine and the needle was advanced until there was return of yellow colored ascitic fluid. A catheter was then introduced in the same location and return to ascitic fluid. 5 L of fluid were drained and the patient tolerated the procedure well. Blood loss less than 1 mL.
[2016-03-08 18:52] LABS: RBC,Peritoneal Fluid < 0.002 M/mcL
[2016-03-08 18:55] LABS: Appearance of Peritoneal Fl HAZY (Clear)
[2016-03-08 19:10] LABS: Amylase,Peritoneal Fluid 18 Units/L (No Ref Range); Glucose,Peritoneal Fluid 165 mg/dL (No Ref Range); LDH,Peritoneal Fluid 35 Units/L (No Ref Range); Total Protein,Peritoneal Fluid 0.8 g/dL (No Ref Range)
[2016-03-09 07:34] LABS: Hemoglobin 6.1 g/dL (12.9-16.9); Mean Corpuscular Volume 98.3 fL (83.0-100.0)
[2016-03-09 07:36] LABS: Basophils % 0.5 %; Eosinophils # 0.3 K/mcL (0.0-0.6); Eosinophils % 6.4 %; Hematocrit 17.5 % (37.5-50.1); Immature Granulocytes % 0.2 % (0-4); Immature Platelets 6.8 % (1.1-6.1); Lymphocytes # 0.6 K/mcL (0.6-4.6); Lymphocytes % 15.2 %; Mean Corpuscular HGB Conc 34.9 g/dL (31.6-35.5); Mean Corpuscular Hemoglobin 34.3 pg (28.0-33.3); Mean Platelet Volume 11.7 fL (9.4-12.4); Monocytes # 0.6 K/mcL (0.0-1.3); Monocytes % 13.5 %; Neutrophils # 2.6 K/mcL (1.6-8.9); Red Blood Count 1.78 M/mcL (4.19-5.50); Red Cell Distribution Width 22.1 % (11.5-14.5); Segmented Neutrophils % 64.2 %
[2016-03-09 07:55] LABS: Calcium 8.4 mg/dL (8.6-10.8); Globulin 1.7 g/dL (2.4-3.5); Potassium 4.3 mEq/L (3.5-4.5)
[2016-03-09 07:58] LABS: Albumin 3.4 g/dL (3.5-5.0); Total Protein 5.1 g/dL (6.0-8.3)
[2016-03-09 08:16] LABS: Platelet Count 47 K/mcL (140-400)
[2016-03-09 08:22] LABS: Anisocytosis 2+ (Not Present); Hypochromasia Present (Not Present); Poikilocytosis 1+ (Not Present); Schistocytes 1+ (Not Present)
[2016-03-09 08:23] LABS: Target Cells 1+ (Not Present)
[2016-03-09 08:25] LABS: Platelet Estimate Marked Decrease (Normal); Polychromasia 1+ (Not Present)
--- NOTE | 2016-03-09 08:40 | Event Note ---
Date of Encounter: 03/09/16 Time of Encounter: 08:39 Nephrology Chart reviewed. Next HD is planned for tomorrow (Thursday), with HD order placed. If any questions, please feel free to contact me. Thank you.
[2016-03-09] MEDS: Aspirin 81 MG TAB.CHEW PO SCH (09:14)
[2016-03-09] MEDS: Cyanocobalamin (B-12) 1,000 MCG TABLET PO SCH (09:14)
[2016-03-09] MEDS: Renal Vitamin 1 MG CAPSULE PO SCH (09:15)
[2016-03-09] MEDS: Calcium Acetate 667 MG CAPSULE PO SCH ×3 (09:15→16:53)
[2016-03-09] MEDS: FLUoxetine 20 MG CAPSULE PO SCH (09:15)
[2016-03-09] MEDS: Cholecalciferol (D-3) 1,000 UNIT TABLET PO SCH (09:15)
[2016-03-09] MEDS: Lactulose Oral Soln 20 GM/30 ML UDC PO SCH ×2 (09:16→22:20)
[2016-03-09] MEDS: traMADol 50 MG TABLET PO PRN (10:50)
[2016-03-09] MEDS: Methyl Salicylate/Menthol 28 GM TUBE TP PRN (16:31)
--- NOTE | 2016-03-09 17:38 | Internal Med Progress Note ---
Date of Encounter: 03/09/16 Time of Encounter: 09:00 - Assessment and plan (1) Abdominal distension Current Visit: Yes Status: Acute Assessment and plan: Status post paracentesis done yesterday. We will need repeat large volume paracentesis every 2-3 days. (2) Ascites Current Visit: Yes Status: Acute Assessment and plan: Diagnostic and therapeutic paracentesis today. Qualifiers: Ascites type: other type Qualified Code(s): R18.8 - Other ascites (3) Cirrhosis of liver with ascites Current Visit: Yes Status: Acute Assessment and plan: Reportedly from Agent orange exposure. MELD 31, 52.6% 3-month mortality. He would undergo weekly therapeutic thoracentesis, last hospital visit here - 03/02/16. Afebrile, no leukocytosis, consideration of SBP is low, Kain dc'd. 03/04/16 Underwent bedside US guided therapeutic paracentesis by IR, 6 L removed 03/05/16 Regarding Pleur-X catheter, patient is not a candidate for Pleur-X as Pleur-X is considered a palliative measure. Concerns that the patient may withdraw too much fluid at home or become infected through the port. 03/06/16 Repeat paracentesis 6500cc per report. Will infuse albumin. 03/07/16 did not get paracentesis done by IR. \03/08/2016: Patient was referred for transfer to the [facility] which is a liver transplant center. I performed abdominal paracentesis and will infuse albumin. Qualifiers: Hepatic cirrhosis type: unspecified hepatic cirrhosis Qualified Code(s): K74.60 - Unspecified cirrhosis of liver (4) Hepatic encephalopathy Current Visit: Yes Status: Acute Assessment and plan: Per admitting H&P documentation. Exam 03/04/16 He is able to affirm name, place (hospital), month, 03/05/16 Remains AO x 3. Cont home, rifaximin and lactulose regimen. He is at high risk for Mariah Hayden and complications due to end-stage cirrhosis and acute changes in mental status secondary to hepatic encephalopathy. (5) Coagulopathy Current Visit: Yes Status: Chronic (6) ESRD (end stage renal disease) on dialysis Current Visit: Yes Status: Chronic Assessment and plan: Plan for hemodialysis tomorrow. (7) DVT prophylaxis Current Visit: Yes Status: Acute Assessment and plan: EPCDs. Avoid antithrombotic due to thrombocytopenia - Subjective Interval history: Patient feeling better, improved breathing, less abdominal distention after paracentesis yesterday,denies chest pain nausea and vomiting. - Constitutional Vitals: Temp Pulse Resp BP Pulse Ox 97.6 F 78 16 85/52 98 03/09/16 16:42 03/09/16 16:42 03/09/16 16:42 03/09/16 16:42 03/09/16 16:42 General appearance: Present: A&O X 3, morbidly obese, pleasant, no acute distress, answers questions appropriately - Eye Eye exam: Present: PERRL, scleral icterus, conjuntiva pink Pupils: Present: PERRL - Respiratory Respiratory exam: Present: CTAB. Absent: accessory muscle use, rales, rhonchi, wheezes - Cardiovascular Cardiovascular exam: Present: RRR, +S1, +S2. Absent: diastolic murmur, gallop, rubs, systolic murmur - GI/Abdominal GI/Abdominal exam: Present: distended, normal bowel sounds, soft, splenomegaly, no peritoneal signs. Absent: tenderness Additional comments: Large ascites Internal Medicine: Result - Labs CBC & Chem 7: 03/09/16 05:56 03/09/16 05:56 Labs: Short CBC 03/09/16 Range/Units 05:56 WBC 4.1 L (4.3-11.1) K/mcL Hgb 6.1 L (12.9-16.9) g/dL Hct 17.5 L (37.5-50.1) % Plt Count 47 L (140-400) K/mcL Neutrophils # 2.6 (1.6-8.9) K/mcL BMP 03/09/16 05:56 Sodium 138 Potassium 4.3 Chloride 97 L Carbon Dioxide 25 BUN 63 H D Creatinine 6.90 H Glucose 85 Calcium 8.4 L Liver Function 03/09/16 Range/Units 05:56 Total Bilirubin 3.0 H (0.2-1.2) mg/dL AST 36 H (5-34) Units/L ALT 21 (0-55) Units/L Alkaline Phosphatase 95 (38-126) Units/L Albumin 3.4 L (3.5-5.0) g/dL - ABG Interpretation ABG results: PT/INR, D-dimer PT 20.0 Seconds (9.4-12.1) H 03/05/16 06:57 - VTE Documentation of Mechanical Device: Intermittent pneumatic compression device Consult Discharge Plan - Plan Referrals: [facility] [Primary Care Provider] -
[2016-03-09] MEDS: Insulin LISPRO 300 UNITS/3 ML VIAL SQ SCH (22:45)
[2016-03-10] MEDS ORDERED: 0.9 % Sodium Chloride 250 ML IV PRN (04:00)
[2016-03-10] MEDS ORDERED: Albumin 25% 12.5gm/50mL 12.5 GM/50 ML IV.SOLN IVPB PRN (04:00)
[2016-03-10 05:20] LABS: Hematocrit 17.8 % (37.5-50.1); Hemoglobin 6.1 g/dL (12.9-16.9); Mean Corpuscular HGB Conc 34.3 g/dL (31.6-35.5); Red Cell Distribution Width 22.5 % (11.5-14.5)
[2016-03-10 05:22] LABS: Basophils % 0.5 %; Eosinophils # 0.3 K/mcL (0.0-0.6); Eosinophils % 5.7 %; Immature Granulocytes % 0.5 % (0-4); Immature Platelets 6.3 % (1.1-6.1); Lymphocytes # 0.6 K/mcL (0.6-4.6); Mean Corpuscular Hemoglobin 33.9 pg (28.0-33.3); Mean Corpuscular Volume 98.9 fL (83.0-100.0); Monocytes # 0.8 K/mcL (0.0-1.3); Monocytes % 13.4 %; Neutrophils # 4.2 K/mcL (1.6-8.9); Segmented Neutrophils % 69.9 %
[2016-03-10 05:24] LABS: INR 1.9; Prothrombin Time 20.6 Seconds (9.4-12.1)
[2016-03-10 05:36] LABS: Albumin 3.2 g/dL (3.5-5.0); Albumin/Globulin Ratio 1.8 (1.1-2.2); Bilirubin,Total 2.4 mg/dL (0.2-1.2); Calcium 8.4 mg/dL (8.6-10.8); Globulin 1.8 g/dL (2.4-3.5); Potassium 4.3 mEq/L (3.5-4.5)
[2016-03-10 06:07] LABS: Platelet Count 61 K/mcL (140-400)
[2016-03-10 06:08] LABS: Platelet Estimate Decreased (Normal)
[2016-03-10 06:09] LABS: Target Cells 1+ (Not Present)
[2016-03-10] MEDS: Calcium Acetate 667 MG CAPSULE PO SCH ×3 (08:40→17:17)
[2016-03-10] MEDS: Renal Vitamin 1 MG CAPSULE PO SCH (08:40)
[2016-03-10] MEDS: Insulin LISPRO 300 UNITS/3 ML VIAL SQ SCH ×4 (08:40→20:08)
[2016-03-10] MEDS: Cyanocobalamin (B-12) 1,000 MCG TABLET PO SCH (08:41)
[2016-03-10] MEDS: Cholecalciferol (D-3) 1,000 UNIT TABLET PO SCH (08:41)
[2016-03-10] MEDS: FLUoxetine 20 MG CAPSULE PO SCH (08:41)
[2016-03-10] MEDS: Aspirin 81 MG TAB.CHEW PO SCH (08:41)
[2016-03-10] MEDS: Lactulose Oral Soln 20 GM/30 ML UDC PO SCH ×2 (08:41→20:16)
[2016-03-10] MEDS ORDERED: Albumin 25% 25gram/100mL 25 GM/100 ML IV.SOLN IVPB ONE (09:30)
--- NOTE | 2016-03-10 09:30 | Nephrology Progress Note ---
Date of Encounter: 03/10/16 Time of Encounter: 09:28 - Assessment and Plan (1) ESRD (end stage renal disease) on dialysis Current Visit: Yes Status: Chronic Dialysis note: HD today for clearance. Next HD would be planned for Thursday. I reviewed his vitals, labs, meds and dialysis pressures. Anemia, multifactorial: agree with PRBC transfusions today while on HD. Goal Hgb is 10-11. Cirrhosis of the liver with ascites and high MELD score. Agree with transfer. Thank you. (2) Cirrhosis of liver with ascites Current Visit: Yes Status: Acute Qualifiers: Hepatic cirrhosis type: unspecified hepatic cirrhosis Qualified Code(s): K74.60 - Unspecified cirrhosis of liver (3) Anemia in chronic kidney disease (CKD) Current Visit: Yes Status: Chronic Subjective Principal diagnosis: ESRD Interval history: pt was s/e while on dialysis. He did not affirm N/V/D or cramping or dizziness while seen on dialysis. We discussed his BP, fluid goals and his liver history. He is scheduled for PRBCs today with dialysis. I spoke with his floor RN, and the pt is in the process of potentially transferring for his advanced liver cirrhosis, perhaps to [facility]. Objective - Vital Signs Vital signs: Vital Signs Temp Pulse Resp BP Pulse Ox 03/10/16 07:57 97.6 F 66 16 79/43 98 03/10/16 05:28 97.7 F 62 18 84/26 96 03/10/16 01:30 98.7 F 69 16 74/27 98 03/09/16 22:46 98.4 F 68 18 80/43 95 03/09/16 16:42 97.6 F 78 16 85/52 98 03/09/16 11:50 97.9 F 78 16 95/61 99 Intake and Output 03/09/16 03/10/16 03/10/16 23:59 07:59 15:59 Intake Total 180 / 180 120 / 120 Output Total 0 / 0 Balance 180 / 180 120 / 120 Intake: Oral 180 / 180 120 / 120 Output: Urine 0 / 0 Other: Meal Dinner Breakfast Percent of Meal Consumed 90% 100% Weight 90.991 kg Blood Glucose* 215 150 Patient Weight 03/10/16 23:59 Weight 90.991 kg - General Appearance General appearance: Present: well-developed, well-nourished, appears started age , obese EENT: Present: ATNC, PERRL, mucous membranes moist Neck: Present: supple Respiratory: Present: clear Cardiology: Present: no edema (of the extremities), regular rate, regular rhythm , normal S1, normal S2 Dialysis Vascular Access: Venous Catheter (Tunneled dialysis catheter (RIJ), cuff is not exposed.) Gastrointestinal: Present: normoactive bowel sounds, no tenderness, distended ( with + fluid wave) Integumentary: Present: no rash, warm and dry Neurologic: Present: no asterixis, alert and oriented x3 Musculoskeletal: Present: no deformities Psychiatric: Present: mood/affect appropriate, cooperative - Lab 03/10/16 04:40 03/10/16 04:40 Most recent lab results Calcium 8.4 mg/dL (8.6-10.8) L 03/10/16 04:40 Phosphorus 6.3 mg/dL (2.3-4.7) H 03/04/16 06:07 Magnesium 2.4 mg/dL (1.6-2.6) 03/08/16 06:22 - VTE Documentation of Mechanical Device: Intermittent pneumatic compression device Consult Discharge Plan - Plan [facility]: [facility] [Primary Care Provider] -
[2016-03-10] MEDS ORDERED: Albumin 25% 12.5gm/50mL 25.0 GM/100 ML IV.SOLN ONE (09:46)
[2016-03-10] MEDS ORDERED: *HR* Heparin 10,000 UNIT/10 ML VIAL IV PRN (11:40)
--- NOTE | 2016-03-10 14:41 | IR Procedure Note ---
Date of procedure: 03/10/16 Consent Obtained: Verbal consent, Written consent Timeout: Correct patient and procedure verified, Correct site verified, Time out performed, Skin prep completed Local anesthetic: Lidocaine 1% Indications: Ascites Procedure Performed: Paracentesis Site/Technique: Paracentesis performed Results/Findings: Therapeutic paracentesis Estimated blood loss (cc): 1 Complications: None; Tolerated procedure well Post Procedure Treatment Plan: Continue inpatient care
[2016-03-10] MEDS: Methyl Salicylate/Menthol 28 GM TUBE TP PRN (17:17)
--- NOTE | 2016-03-10 19:03 | Internal Med Progress Note ---
Date of Encounter: 03/10/16 Time of Encounter: 10:00 - Assessment and plan (1) Abdominal distension Current Visit: Yes Status: Acute Assessment and plan: Status post paracentesis done yesterday. Repeat large volume paracentesis by IR today.. (2) Ascites Current Visit: Yes Status: Acute Assessment and plan: Diagnostic and therapeutic paracentesis today. Qualifiers: Ascites type: other type Qualified Code(s): R18.8 - Other ascites (3) Cirrhosis of liver with ascites Current Visit: Yes Status: Acute Assessment and plan: Reportedly from Agent orange exposure. MELD 31, 52.6% 3-month mortality. He would undergo weekly therapeutic thoracentesis, last hospital visit here - 03/02/16. Afebrile, no leukocytosis, consideration of SBP is low, Kain dc'd. 03/04/16 Underwent bedside US guided therapeutic paracentesis by IR, 6 L removed 03/05/16 Regarding Pleur-X catheter, patient is not a candidate for Pleur-X as Pleur-X is considered a palliative measure. Concerns that the patient may withdraw too much fluid at home or become infected through the port. 03/06/16 Repeat paracentesis 6500cc per report. Will infuse albumin. 03/07/16 did not get paracentesis done by IR. \03/08/2016: Patient was referred for transfer to the [facility] which is a liver transplant center. I performed abdominal paracentesis and will infuse albumin. 03/10/2016: Awaiting reply from AL at [facility] for inpatient transfer for. If the patient is denying she will be discharged home and instructed to follow- up at [facility] as soon as possible, preferably within 1-2 days. Qualifiers: Hepatic cirrhosis type: unspecified hepatic cirrhosis Qualified Code(s): K74.60 - Unspecified cirrhosis of liver (4) Hepatic encephalopathy Current Visit: Yes Status: Acute Assessment and plan: mentl status has improved, now is at baseline, he is awake alert oriented 3. Cont home, rifaximin and lactulose regimen. He is at high risk for morbidity, mortality and complications due to end-stage cirrhosis and acute changes in mental status secondary to hepatic encephalopathy. (5) Coagulopathy Current Visit: Yes Status: Chronic Assessment and plan: Avoid antithrombotic medication. (6) ESRD (end stage renal disease) on dialysis Current Visit: Yes Status: Chronic Assessment and plan: Plan for hemodialysis today, albumin as administration with hemodialysis for blood pressure support. (7) DVT prophylaxis Current Visit: Yes Status: Acute Assessment and plan: EPCDs. Avoid antithrombotic due to thrombocytopenia (8) Anemia in chronic kidney disease Current Visit: Yes Status: Acute Assessment and plan: Continue darbepoetin per renal. Transfused 2 units PRBC today with hemodialysis. - Subjective Interval history: Patient feeling better, mild shortness of breath, reports increasing abdominal distention and mild pressure-like sensation but no abdominal pain,denies chest pain nausea and vomiting. Reports 7 kg weight gain since last hemodialysis. - Constitutional Vitals: Temp Pulse Resp BP Pulse Ox 98.3 F 71 16 86/49 98 03/10/16 18:27 03/10/16 18:27 03/10/16 18:27 03/10/16 18:27 03/10/16 11:30 General appearance: Present: A&O X 3, morbidly obese, pleasant, no acute distress, answers questions appropriately - Respiratory Respiratory exam: Present: CTAB. Absent: accessory muscle use, rales, rhonchi, wheezes - Cardiovascular Cardiovascular exam: Present: RRR, +S1, +S2. Absent: diastolic murmur, gallop, rubs, systolic murmur - GI/Abdominal GI/Abdominal exam: Present: distended, normal bowel sounds, soft, no peritoneal signs. Absent: tenderness Additional comments: Ascites - Extremities Exam Extremities exam: Present: pedal edema, warm, radial pulses palpable and symetrical. Absent: calf tenderness, cyanotic - Neurological Exam Neurological exam: Present: CN II-XII intact, oriented X3, no focal deficits. Absent: pronater drift, facial droop, speech deficit Additional comments: [facility] Internal Medicine: Result - Labs CBC & Chem 7: 03/10/16 04:40 03/10/16 04:40 Labs: Short CBC 03/10/16 Range/Units 04:40 WBC 6.0 (4.3-11.1) K/mcL Hgb 6.1 L (12.9-16.9) g/dL Hct 17.8 L (37.5-50.1) % Plt Count 61 L (140-400) K/mcL Neutrophils # 4.2 (1.6-8.9) K/mcL BMP 03/10/16 04:40 Sodium 137 Potassium 4.3 Chloride 97 L Carbon Dioxide 23 BUN 80 H D Creatinine 8.53 H Glucose 126 H Calcium 8.4 L Liver Function 03/10/16 Range/Units 04:40 Total Bilirubin 2.4 H (0.2-1.2) mg/dL AST 39 H (5-34) Units/L ALT 25 (0-55) Units/L Alkaline Phosphatase 109 (38-126) Units/L Albumin 3.2 L (3.5-5.0) g/dL - ABG Interpretation ABG results: PT/INR, D-dimer PT 20.6 Seconds (9.4-12.1) H 03/10/16 04:40 - Impressions Impressions Paracentesis Ultrasound 03/10/16 08:45 IMPRESSION: Successful ultrasound guided paracentesis. D/ / Hector Peterson MD / Hector Peterson MD Interpreting Provider: Hector Peterson MD - VTE Documentation of Mechanical Device: Intermittent pneumatic compression device Consult Discharge Plan - Plan [facility]errals: [facility] [Primary Care Provider] -
[2016-03-11 04:54] LABS: Basophils % 0.7 %; Immature Granulocytes % 0.3 % (0-4); Mean Corpuscular Volume 96.7 fL (83.0-100.0)
[2016-03-11 04:56] LABS: Eosinophils # 0.2 K/mcL (0.0-0.6); Eosinophils % 3.5 %; Hematocrit 20.7 % (37.5-50.1); Immature Platelets 6.5 % (1.1-6.1); Lymphocytes # 0.7 K/mcL (0.6-4.6); Lymphocytes % 12.3 %; Mean Corpuscular HGB Conc 33.8 g/dL (31.6-35.5); Mean Corpuscular Hemoglobin 32.7 pg (28.0-33.3); Mean Platelet Volume 12.7 fL (9.4-12.4); Monocytes # 0.9 K/mcL (0.0-1.3); Neutrophils # 4.1 K/mcL (1.6-8.9); Red Blood Count 2.14 M/mcL (4.19-5.50); Red Cell Distribution Width 21.9 % (11.5-14.5); Segmented Neutrophils % 68.2 %
[2016-03-11 05:02] LABS: Platelet Count 51 K/mcL (140-400)
[2016-03-11 05:12] LABS: Albumin 3.1 g/dL (3.5-5.0); Albumin/Globulin Ratio 1.7 (1.1-2.2); Calcium 8.3 mg/dL (8.6-10.8); Globulin 1.8 g/dL (2.4-3.5); Potassium 4.4 mEq/L (3.5-4.5); Total Protein 4.9 g/dL (6.0-8.3)
[2016-03-11 05:14] LABS: Bilirubin,Total 4.1 mg/dL (0.2-1.2)
[2016-03-11] MEDS: Cyanocobalamin (B-12) 1,000 MCG TABLET PO SCH (07:49)
[2016-03-11] MEDS: Aspirin 81 MG TAB.CHEW PO SCH (07:49)
[2016-03-11] MEDS: Renal Vitamin 1 MG CAPSULE PO SCH (07:49)
[2016-03-11] MEDS: Calcium Acetate 667 MG CAPSULE PO SCH ×3 (07:49→15:36)
[2016-03-11] MEDS: FLUoxetine 20 MG CAPSULE PO SCH (07:52)
[2016-03-11] MEDS: Cholecalciferol (D-3) 1,000 UNIT TABLET PO SCH (07:52)
[2016-03-11] MEDS: Lactulose Oral Soln 20 GM/30 ML UDC PO SCH ×2 (07:54→20:03)
[2016-03-11] MEDS: Insulin LISPRO 300 UNITS/3 ML VIAL SQ SCH ×4 (07:59→20:02)
--- NOTE | 2016-03-11 09:16 | Internal Med Progress Note ---
Date of Encounter: 03/11/16 Time of Encounter: 09:14 - Assessment and plan (1) Anemia in chronic kidney disease Current Visit: Yes Status: Chronic Assessment and plan: Hemoglobin noted to be 7 today. No signs of active bleeding. Received 2 units PRBC during this admission. Goal to transfuse if hemoglobin less than 7. (2) Ascites Current Visit: Yes Status: Acute Assessment and plan: Recurrent ascites. From previous notes, patient is not a candidate for TIPS procedure due to chronic portal hypertension and not a candidate for Pleur-X catheter placement as it is considered to be palliative and patient is pursuing possible liver transplantation. Continue regular paracentesis once every 2-3 days at this time. Underwent 4 sessions of paracentesis during this admission, the last one on 03/10/16. No indication for paracentesis today. Qualifiers: Ascites type: other type Qualified Code(s): R18.8 - Other ascites (3) Cirrhosis of liver with ascites Current Visit: Yes Status: Acute Assessment and plan: Plan as above. Continue lactulose, rifaximin; Patient awaiting possible transfer to [facility] in [facility] for urgent evaluation of liver transplantation. Process initiated by previous hospitalist, waiting to hear from [facility]. Qualifiers: Hepatic cirrhosis type: unspecified hepatic cirrhosis Qualified Code(s): K74.60 - Unspecified cirrhosis of liver (4) DM (diabetes mellitus), type 2 with renal complications Current Visit: Yes Status: Chronic Assessment and plan: Blood sugars well controlled. Continue basal bolus insulin regimen. Diabetic diet. Qualifiers: Diabetes mellitus complication detail: with other kidney complication Diabetes mellitus ad terminal makeup operator insulin use: without mcc use Qualified Code( s): E11.29 - Type 2 diabetes mellitus with other diabetic kidney complication (5) ESRD (end stage renal disease) on dialysis Current Visit: Yes Status: Chronic Assessment and plan: Nephrology on board, patient receiving regular hemodialysis sessions- MWF while in house. Continue midodrine for hypotension due to underlying cirrhosis and ESRD. - Subjective Interval history: Feels okay; no chest pain, shortness of breath, abdominal pain; underwent paracentesis and HD yesterday; awaiting transfer to [facility]; - Constitutional Vitals: Temp Pulse Resp BP Pulse Ox 98 F 76 16 90/56 96 03/11/16 08:02 03/11/16 08:02 03/11/16 08:02 03/11/16 08:02 03/11/16 08:02 General appearance: Present: A&O X 3, answers questions appropriately - Head Head exam: Present: atraumatic, normocephalic - Neck Neck exam general surgery: Present: supple, trachea midline. Absent: lymphadenopathy - Respiratory Respiratory exam: Present: CTAB. Absent: accessory muscle use, rales, rhonchi, wheezes - Cardiovascular Cardiovascular exam: Present: RRR, +S1, +S2. Absent: diastolic murmur, gallop, rubs, systolic murmur - GI/Abdominal GI/Abdominal exam: Present: distended, normal bowel sounds, soft (nontender; LLQ with subcutaneous fibrosis from multiple peritoneal taps;), no peritoneal signs. Absent: tenderness - Neurological Exam Neurological exam: Present: CN II-XII intact, oriented X3, no focal deficits. Absent: pronater drift, facial droop, speech deficit Internal Medicine: Result - Labs CBC & Chem 7: 03/11/16 04:06 03/11/16 04:06 Labs: Short CBC 03/11/16 Range/Units 04:06 WBC 6.0 (4.3-11.1) K/mcL Hgb 7.0 L (12.9-16.9) g/dL Hct 20.7 L (37.5-50.1) % Plt Count 51 L (140-400) K/mcL Neutrophils # 4.1 (1.6-8.9) K/mcL BMP 03/11/16 04:06 Sodium 139 Potassium 4.4 Chloride 100 Carbon Dioxide 26 BUN 54 H D Creatinine 5.67 H Glucose 144 H Calcium 8.3 L Liver Function 03/11/16 Range/Units 04:06 Total Bilirubin 4.1 H D (0.2-1.2) mg/dL AST 40 H (5-34) Units/L ALT 26 (0-55) Units/L Alkaline Phosphatase 105 (38-126) Units/L Albumin 3.1 L (3.5-5.0) g/dL - ABG Interpretation ABG results: PT/INR, D-dimer PT 20.6 Seconds (9.4-12.1) H 03/10/16 04:40 - Impressions Impressions Paracentesis Ultrasound 03/10/16 08:45 IMPRESSION: Successful ultrasound guided paracentesis. D/ / Hector Peterson MD / Hector Peterson MD Interpreting Provider: Hector Peterson MD - VTE Documentation of Mechanical Device: Intermittent pneumatic compression device Consult Discharge Plan - Plan [facility]errals: [facility] [Primary Care Provider] -
[2016-03-12] MEDS: Aspirin 81 MG TAB.CHEW PO SCH (05:20)
[2016-03-12] MEDS: Cholecalciferol (D-3) 1,000 UNIT TABLET PO SCH (05:20)
[2016-03-12] MEDS: Lactulose Oral Soln 20 GM/30 ML UDC PO SCH (05:20)
[2016-03-12] MEDS: Cyanocobalamin (B-12) 1,000 MCG TABLET PO SCH (05:20)
[2016-03-12] MEDS: Renal Vitamin 1 MG CAPSULE PO SCH (05:21)
[2016-03-12] MEDS: FLUoxetine 20 MG CAPSULE PO SCH (05:21)
[2016-03-12 06:32] LABS: Calcium 8.3 mg/dL (8.6-10.8); Potassium 4.8 mEq/L (3.5-4.5)
--- NOTE | 2016-03-12 07:45 | Internal Med Progress Note ---
Date of Encounter: 03/12/16 Time of Encounter: 07:39 - Assessment and plan (1) Anemia in chronic kidney disease Current Visit: Yes Status: Chronic Assessment and plan: Hemoglobin noted to be 6.9 today. No signs of active bleeding. Plan to transfuse 2 units PRBC during hemodialysis today. (2) Ascites Current Visit: Yes Status: Chronic Assessment and plan: Recurrent ascites due to end-stage liver disease secondary to agent orange exposure?. Continue regular paracentesis once every 2-3 days at this time. Underwent 4 sessions of paracentesis during this admission, the last one on . Next paracentesis in am; Albumin with large volume paracentesis; Qualifiers: Ascites type: other type Qualified Code(s): R18.8 - Other ascites (3) Cirrhosis of liver with ascites Current Visit: Yes Status: Chronic Qualifiers: Hepatic cirrhosis type: unspecified hepatic cirrhosis Qualified Code(s): K74.60 - Unspecified cirrhosis of liver (4) DM (diabetes mellitus), type 2 with renal complications Current Visit: Yes Status: Chronic Assessment and plan: Blood sugars well controlled. Continue basal bolus insulin regimen. Diabetic diet. Qualifiers: Diabetes mellitus complication detail: with other kidney complication Diabetes mellitus oil heaterman insulin use: without jail use Qualified Code( s): E11.29 - Type 2 diabetes mellitus with other diabetic kidney complication (5) ESRD (end stage renal disease) on dialysis Current Visit: Yes Status: Chronic Assessment and plan: Follows [facility], HD today; - Subjective Interval history: No new complaints; awaiting HD today; no chest pain, abdominal pain, nausea, vomiting, confusion; plan of care discussed with his son, Herbert, at bedside. Patient's oldest son works at the [employer] in [place] and is working with the dry transfer man to have the patient transferred there for evaluation by a liver specialist. - Constitutional Vitals: Temp Pulse Resp BP Pulse Ox 97.8 F 70 16 75/45 97 03/12/16 07:18 03/12/16 07:18 03/12/16 07:18 03/12/16 07:18 03/12/16 07:18 General appearance: Present: A&O X 3, obese, answers questions appropriately - Head Head exam: Present: atraumatic, normocephalic - Neck Neck exam general surgery: Present: supple, trachea midline. Absent: lymphadenopathy - Respiratory Respiratory exam: Present: CTAB. Absent: accessory muscle use, rales, rhonchi, wheezes - Cardiovascular Cardiovascular exam: Present: RRR, +S1, +S2, systolic murmur. Absent: diastolic murmur, gallop, rubs - GI/Abdominal GI/Abdominal exam: Present: distended, normal bowel sounds, soft (nontender, distended, ascites+), no peritoneal signs. Absent: tenderness - Extremities Exam Extremities exam: Present: full ROM, pedal edema, warm, radial pulses palpable and symetrical. Absent: calf tenderness, cyanotic - Neurological Exam Neurological exam: Present: CN II-XII intact, oriented X3, no focal deficits. Absent: pronater drift, facial droop, speech deficit - Skin Skin exam: Present: dry, intact Internal Medicine: Result - Labs CBC & Chem 7: 03/12/16 04:40 03/12/16 05:25 Labs: Short CBC 03/12/16 Range/Units 04:40 WBC 5.3 (4.3-11.1) K/mcL Hgb 6.9 L (12.9-16.9) g/dL Hct 21.7 L (37.5-50.1) % Plt Count 66 L (140-400) K/mcL Neutrophils # 4.5 (1.6-8.9) K/mcL BMP 03/12/16 05:25 Sodium 135 L Potassium 4.8 H Chloride 95 L Carbon Dioxide 25 BUN 77 H D Creatinine 7.25 H Glucose 137 H Calcium 8.3 L - ABG Interpretation ABG results: PT/INR, D-dimer PT 20.6 Seconds (9.4-12.1) H 03/10/16 04:40 - VTE Documentation of Mechanical Device: Intermittent pneumatic compression device Consult Discharge Plan - Plan [facility]errals: [facility] [Primary Care Provider] -
[2016-03-12] MEDS ORDERED: 0.9 % Sodium Chloride 250 ML IV PRN (07:58)
[2016-03-12 08:10] LABS: Basophils % 0.5 %; Eosinophils # 0.4 K/mcL (0.0-0.6); Eosinophils % 6.2 %; Hematocrit 20.1 % (37.5-50.1); Hemoglobin 7.1 g/dL (12.9-16.9); Immature Granulocytes % 0.3 % (0-4); Lymphocytes # 0.7 K/mcL (0.6-4.6); Lymphocytes % 10.7 %; Mean Corpuscular HGB Conc 35.3 g/dL (31.6-35.5); Mean Corpuscular Hemoglobin 33.8 pg (28.0-33.3); Mean Corpuscular Volume 95.7 fL (83.0-100.0); Mean Platelet Volume 12.5 fL (9.4-12.4); Monocytes # 0.7 K/mcL (0.0-1.3); Monocytes % 11.7 %; Neutrophils # 4.4 K/mcL (1.6-8.9); Red Cell Distribution Width 21.7 % (11.5-14.5); Segmented Neutrophils % 70.6 %
[2016-03-12 08:12] LABS: Platelet Count 64 K/mcL (140-400)
--- NOTE | 2016-03-12 08:15 | Nephrology Progress Note ---
Date of Encounter: 03/12/16 Time of Encounter: 10:00 - Assessment and Plan (1) ESRD (end stage renal disease) on dialysis Current Visit: Yes Status: Chronic Dialysis note: HD today for clearance. Next HD would be planned for Thursday. I reviewed his vitals, labs, meds and dialysis pressures. Anemia, multifactorial: agree with PRBC transfusions today while on HD. Goal Hgb is 10-11. Discussed with the hospitalist, and I've ordered it to be given with HD. Cirrhosis of the liver with ascites and high MELD score. Agree with transfer. Thank you. (2) Cirrhosis of liver with ascites Current Visit: Yes Status: Chronic Qualifiers: Hepatic cirrhosis type: unspecified hepatic cirrhosis Qualified Code(s): K74.60 - Unspecified cirrhosis of liver (3) Anemia in chronic kidney disease (CKD) Current Visit: Yes Status: Chronic Subjective Principal diagnosis: ESRD Interval history: The pt was s/e while on HD. Though his BPs were low (which is typical for him) while on dialysis, he denied dizziness, weakness or chest pain or cramping. He has been awaiting transfer to a liver transplant center. Objective - Vital Signs Vital signs: Vital Signs Temp Pulse Resp BP Pulse Ox 03/12/16 07:18 97.8 F 70 16 75/45 97 03/12/16 04:56 98.0 F 70 16 78/33 91 L 03/12/16 00:08 98.2 F 65 16 73/30 94 L 03/11/16 20:28 98.2 F 63 16 86/46 96 03/11/16 17:09 98.4 F 68 16 100/57 95 03/11/16 12:00 98.4 F 75 16 75/27 95 Intake and Output 03/11/16 03/12/16 03/12/16 23:59 07:59 15:59 Other: Weight 89.358 kg Blood Glucose* 162 145 Patient Weight 03/12/16 23:59 Weight 89.358 kg - General Appearance General appearance: Present: well-developed, well-nourished, fatigue EENT: Present: ATNC, PERRL Neck: Present: supple Respiratory: Present: clear Cardiology: Present: no edema, regular rate, normal S1, normal S2 Dialysis Vascular Access: Venous Catheter (Right Tunneled Dialysis Catheter with dressing that was C/D/I. The cuff was not exposed.) Gastrointestinal: Present: normoactive bowel sounds, distended Integumentary: Present: warm and dry Neurologic: Present: no focal deficit, alert and oriented x3 Musculoskeletal: Present: no deformities, no erythema, no cyanosis, no clubbing Psychiatric: Present: mood/affect appropriate, cooperative - Lab 03/12/16 05:25 03/12/16 05:25 Most recent lab results Calcium 8.3 mg/dL (8.6-10.8) L 03/12/16 05:25 Phosphorus 6.3 mg/dL (2.3-4.7) H 03/04/16 06:07 Magnesium 2.4 mg/dL (1.6-2.6) 03/08/16 06:22 - VTE Documentation of Mechanical Device: Intermittent pneumatic compression device Consult Discharge Plan - Plan Instructions: Cirrhosis (DC), Ascites (DC), Anemia (GEN) Referrals: [facility] [Primary Care Provider] -
[2016-03-12] MEDS: Calcium Acetate 667 MG CAPSULE PO SCH ×2 (08:25→11:56)
[2016-03-12] MEDS: Insulin LISPRO 300 UNITS/3 ML VIAL SQ SCH ×2 (08:25→11:56)
[2016-03-12 08:33] LABS: Anisocytosis 1+ (Not Present); Hypochromasia Present (Not Present); Platelet Estimate Decreased (Normal); Target Cells 1+ (Not Present)
[2016-03-12] MEDS ORDERED: Albumin 25% 12.5gm/50mL 25.0 GM/100 ML IV.SOLN ONE (09:46)
[2016-03-12] MEDS: traMADol 50 MG TABLET PO PRN (11:52)
[2016-03-12 16:36] VITALS: BP 126/103
== END 2016-03-12 12:16 | DRG 441 ==
LOC: EMEROO 17:37 → 2ANU 17:37 → OBSVTOIN 21:08 → SUATTDRO 21:08 → 2ANU 22:35
PROVIDERS: ADMIT Internal Medicine; ATTEND Internal Medicine

== ENCOUNTER 2016-04-01 22:08 | Inpatient (IN) ==
[2016-04-01] MEDS ORDERED: 0.9 % Sodium Chloride 500 ML ONE (22:14)
[2016-04-01] MEDS ORDERED: 0.9 % Sodium Chloride 500 ML IVC ONE (22:22)
[2016-04-01 23:35] LABS: INR 1.5; Prothrombin Time 16.8 Seconds (9.4-12.1)
[2016-04-01 23:37] LABS: Basophils % 0.2 %; Eosinophils # 0.3 K/mcL (0.0-0.6); Eosinophils % 3.9 %; Hematocrit 17.5 % (37.5-50.1); Immature Granulocytes % 0.3 % (0-4); Lymphocytes # 0.9 K/mcL (0.6-4.6); Lymphocytes % 14.3 %; Mean Corpuscular HGB Conc 33.1 g/dL (31.6-35.5); Mean Corpuscular Hemoglobin 33.7 pg (28.0-33.3); Mean Corpuscular Volume 101.7 fL (83.0-100.0); Mean Platelet Volume 11.9 fL (9.4-12.4); Monocytes # 0.9 K/mcL (0.0-1.3); Monocytes % 14.3 %; Neutrophils # 4.3 K/mcL (1.6-8.9); Red Blood Count 1.72 M/mcL (4.19-5.50)
[2016-04-01 23:39] LABS: Platelet Count 70 K/mcL (140-400)
[2016-04-01 23:44] LABS: Albumin 2.4 g/dL (3.5-5.0); Bilirubin,Direct 1.3 mg/dL (0.0-0.5); Bilirubin,Indirect 0.6 mg/dL (0.0-1.2); Bilirubin,Total 1.9 mg/dL (0.2-1.2); Calcium 8.7 mg/dL (8.6-10.8); Globulin 2.4 g/dL (2.4-3.5); Potassium 6.4 mEq/L (3.5-4.5); Total Protein 4.8 g/dL (6.0-8.3)
[2016-04-01 23:45] LABS: Hemoglobin 5.8 g/dL (12.9-16.9)
[2016-04-02 00:07] LABS: Hypochromasia Present (Not Present); Polychromasia 1+ (Not Present); Target Cells 1+ (Not Present)
[2016-04-02 00:08] LABS: Anisocytosis 1+ (Not Present); Macrocytosis Present (Not Present)
[2016-04-02 00:09] LABS: Platelet Estimate Decreased (Normal)
[2016-04-02] MEDS ORDERED: *HR* FentaNYL (PF) 100 MCG/2 ML VIAL IVP ONE (00:38)
--- NOTE | 2016-04-02 01:57 | Emergency Department Note ---
Disposition Clinical Impression: Anemia Qualifiers: Anemia type: unspecified type Qualified Code(s): D64.9 - Anemia, unspecified GI (gastrointestinal hemorrhage) Qualifiers: GI bleed type/associated pathology: unspecified gastrointestinal hemorrhage type Qualified Code(s): K92.2 - Gastrointestinal hemorrhage, unspecified Disposition: Admitted As Inpatient Condition: Good Time of Disposition: 01:00 General Adult HPI - General Chief complaint: ED Shortness of Breath/Dyspnea Stated complaint: ERMA Time Seen by Provider: 04/01/16 22:21 Source: patient, EMS Mode of arrival: EMS Limitations: no limitations Nursing Notes Reviewed: Yes Vital Signs Reviewed: Yes - History of Present Illness HPI Narrative: 65-year-old male presents with increasing weakness, fatigue, shortness of breath patient states that he was seen in emergency department yesterday with similar symptoms, had a negative workup and was sent home. Patient states that his symptoms have continued to deteriorate since he was discharged yesterday. She reports one episode of hematochezia however he has a history of hemorrhoids which have caused similar symptoms in the past. Pain Scale: 8 - Related Data Home Medications Medication Instructions Recorded Confirmed Cholecalciferol (Vitamin D3) 2,000 unit PO DAILY 01/08/15 03/03/16 [Vitamin D3] FLUoxetine HCl [Prozac] 20 mg PO QAM 01/08/15 03/03/16 Allopurinol [Zyloprim 100 MG] 50 mg PO DAILY 03/01/15 03/03/16 Calcium Acetate 667 mg PO TIDWM 06/19/15 03/03/16 Cyclobenzaprine HCl 10 mg PO TID 06/19/15 03/03/16 Aspirin 81 mg PO DAILY 10/09/15 03/03/16 Ondansetron HCl [Zofran] 4 mg PO Q6H PRN 10/12/15 03/03/16 Renal Vitamin [Renal Caps Softgel] 1 mg PO DAILY 12/27/15 03/03/16 Nateglinide [Starlix] 60 mg PO TIDWM 02/28/16 03/03/16 Lactulose 30 gm PO BID 03/03/16 03/03/16 Menthol/Camphor [Anti-Itch Lotion] 1 appl TP BID PRN 03/03/16 03/03/16 Omeprazole [PriLOSEC] 40 mg PO DAILY 03/03/16 03/03/16 Sucralfate [Carafate] 1 gm PO BID 03/03/16 03/03/16 Previous Rx's Medication Instructions Recorded Midodrine [ProAmatine] 10 mg PO 0800,1200,1700 #90 tablet 10/18/15 Rifaximin [Xifaxan] 550 mg PO BID #60 tablet 01/01/16 Allergies Allergy/AdvReac Type Severity Reaction Status Date / Time Oxycodone AdvReac Confusion Verified 04/01/16 23:00 All systems ED: reviewed and negative except as stated. Constitutional: Reports: weakness. Denies: fever, chills Cardiovascular: Reports: dyspnea on exertion. Denies: chest pain, palpitations Respiratory: Reports: dyspnea. Denies: cough, wheezes, hemoptysis Gastrointestinal: Reports: nausea, diarrhea, hematochezia. Denies: abdominal pain, vomiting Genitourinary: Denies: urgency Musculoskeletal: Denies: back pain Past Medical History - Past Medical History Attestation: Yes The following information was validated with the patient. Source: patient, old records reviewed Medical history: Reports: cirrhosis Surgical history: Reports: cholecystectomy, orthopedic, other, vasectomy, other Psychiatric history: Reports: anxiety, depression, PTSD, other - Social History Smoking Status: Unknown if ever smoked Smokeless Tobacco Status: No Alcohol use: Reports: none Drug use: Reports: none Physical Exam General: Alert and in no acute distress Skin: Pale, dry, intact Head: Normocephalic and atraumatic Neck: Supple, trachea midline and no tenderness Cardiovascular: RRR, no murmur, normal perfusion Respiratory: CTAB, no wheezing, cough, or respiratory distress Musculoskeletal: Normal strength, no tenderness, swelling or deformity GI: Soft, distended, nontender to palpation. Neuro: A&O to person, place, time and situation. No focal deficits noted on exam Psychiatric: cooperative and appropriate mood and affect. - General Limitations: no limitations Course Vital Signs Temperature 97.7 F 04/01/16 22:10 Pulse Rate 64 04/01/16 22:10 Respiratory Rate 16 04/01/16 22:10 Blood Pressure 79/42 04/01/16 22:10 O2 Sat by Pulse Oximetry 100 04/01/16 22:10 Temperature 97.3 F L 04/02/16 03:00 Pulse Rate 63 04/02/16 03:00 Respiratory Rate 14 04/02/16 03:00 Blood Pressure 98/47 04/02/16 03:00 O2 Sat by Pulse Oximetry 100 04/02/16 03:00 Oxygen Delivery Oxygen Delivery Room Air Medical Decision Making - MDM Narrative Medical decision making narrative: Patient was given 250 mL of IV fluids and control blood pressure. I did not give more IV fluids because the patient receiving 2 units of blood. - Medical Records Medical records reviewed: Yes I reviewed the patient's medical records. - Lab Data Lab results reviewed: Yes I reviewed the patient's lab results. Result diagrams: 04/01/16 23:24 04/01/16 23:24 Lab Results 04/01/16 04/01/16 04/01/16 Range/Units 23:24 23:24 23:24 WBC 6.4 (4.3-11.1) K/mcL RBC 1.72 L (4.19-5.50) M/mcL Hgb 5.8 L* (12.9-16.9) g/dL Hct 17.5 L (37.5-50.1) % MCV 101.7 H (83.0-100.0) fL MCH 33.7 H (28.0-33.3) pg MCHC 33.1 (31.6-35.5) g/dL RDW TNP Plt Count 70 L D (140-400) K/mcL MPV 11.9 (9.4-12.4) fL Immature Gran % 0.3 (0-4) % Seg Neutrophils % 67.0 % Lymphocytes % 14.3 % Monocytes % 14.3 % Eosinophils % 3.9 % Basophils % 0.2 % Neutrophils # 4.3 (1.6-8.9) K/mcL Lymphocytes # 0.9 (0.6-4.6) K/mcL Monocytes # 0.9 (0.0-1.3) K/mcL Eosinophils # 0.3 (0.0-0.6) K/mcL Basophils # 0.0 (0.0-0.2) K/mcL Platelet Estimate Decreased L (Normal) Immature Plt Fraction 5.0 (1.1-6.1) % Polychromasia 1+ A (Not Present) Hypochromasia Present A (Not Present) Anisocytosis 1+ A (Not Present) Macrocytosis Present A (Not Present) Target Cells 1+ A (Not Present) PT 16.8 H (9.4-12.1) Seconds INR 1.5 APTT 38.0 H (26.0-36.0) Seconds Sodium 133 L (136-145) mEq/L Potassium 6.4 H (3.5-4.5) mEq/L Chloride 97 L (98-109) mEq/L Carbon Dioxide 23 (19-29) mEq/L BUN 93 H D (8-26) mg/dL Creatinine 9.44 H (0.72-1.25) mg/dL Est GFR ( Amer) 7 L (> 60) Est GFR (Non-Af Amer) 6 L (> 60) BUN/Creatinine Ratio 10 (6-26) Glucose 71 (70-99) mg/dL Calculated Osmolality 303 H (280-300) Lactic Acid (0.5-2.2) mmol/L Calcium 8.7 (8.6-10.8) mg/dL Total Bilirubin 1.9 H (0.2-1.2) mg/dL Direct Bilirubin 1.3 H (0.0-0.5) mg/dL Indirect Bilirubin 0.6 (0.0-1.2) mg/dL AST 46 H (5-34) Units/L ALT 42 (0-55) Units/L Alkaline Phosphatase 156 H (38-126) Units/L Troponin I (0-0.03) ng/mL B-Natriuretic Peptide (0-100) pg/mL Serum Total Protein 4.8 L (6.0-8.3) g/dL Albumin 2.4 L (3.5-5.0) g/dL Globulin 2.4 (2.4-3.5) g/dL Albumin/Globulin Ratio 1.0 L (1.1-2.2) Stool Occult Blood (Negative) Blood Type Antibody Screen Crossmatch 04/01/16 04/01/16 04/01/16 Range/Units 23:24 23:24 23:24 WBC (4.3-11.1) K/mcL RBC (4.19-5.50) M/mcL Hgb (12.9-16.9) g/dL Hct (37.5-50.1) % MCV (83.0-100.0) fL MCH (28.0-33.3) pg MCHC (31.6-35.5) g/dL RDW Plt Count (140-400) K/mcL MPV (9.4-12.4) fL Immature Gran % (0-4) % Seg Neutrophils % % Lymphocytes % % Monocytes % % Eosinophils % % Basophils % % Neutrophils # (1.6-8.9) K/mcL Lymphocytes # (0.6-4.6) K/mcL Monocytes # (0.0-1.3) K/mcL Eosinophils # (0.0-0.6) K/mcL Basophils # (0.0-0.2) K/mcL Platelet Estimate (Normal) Immature Plt Fraction (1.1-6.1) % Polychromasia (Not Present) Hypochromasia (Not Present) Anisocytosis (Not Present) Macrocytosis (Not Present) Target Cells (Not Present) PT (9.4-12.1) Seconds INR APTT (26.0-36.0) Seconds Sodium (136-145) mEq/L Potassium (3.5-4.5) mEq/L Chloride (98-109) mEq/L Carbon Dioxide (19-29) mEq/L BUN (8-26) mg/dL Creatinine (0.72-1.25) mg/dL Est GFR ( Amer) (> 60) Est GFR (Non-Af Amer) (> 60) BUN/Creatinine Ratio (6-26) Glucose (70-99) mg/dL Calculated Osmolality (280-300) Lactic Acid 4.1 H* (0.5-2.2) mmol/L Calcium (8.6-10.8) mg/dL Total Bilirubin (0.2-1.2) mg/dL Direct Bilirubin (0.0-0.5) mg/dL Indirect Bilirubin (0.0-1.2) mg/dL AST (5-34) Units/L ALT (0-55) Units/L Alkaline Phosphatase (38-126) Units/L Troponin I 0.03 (0-0.03) ng/mL B-Natriuretic Peptide 160 H (0-100) pg/mL Serum Total Protein (6.0-8.3) g/dL Albumin (3.5-5.0) g/dL Globulin (2.4-3.5) g/dL Albumin/Globulin Ratio (1.1-2.2) Stool Occult Blood (Negative) Blood Type Antibody Screen Crossmatch 04/02/16 04/02/16 04/02/16 Range/Units 00:30 00:40 02:15 WBC (4.3-11.1) K/mcL RBC (4.19-5.50) M/mcL Hgb (12.9-16.9) g/dL Hct (37.5-50.1) % MCV (83.0-100.0) fL MCH (28.0-33.3) pg MCHC (31.6-35.5) g/dL RDW Plt Count (140-400) K/mcL MPV (9.4-12.4) fL Immature Gran % (0-4) % Seg Neutrophils % % Lymphocytes % % Monocytes % % Eosinophils % % Basophils % % Neutrophils # (1.6-8.9) K/mcL Lymphocytes # (0.6-4.6) K/mcL Monocytes # (0.0-1.3) K/mcL Eosinophils # (0.0-0.6) K/mcL Basophils # (0.0-0.2) K/mcL Platelet Estimate (Normal) Immature Plt Fraction (1.1-6.1) % Polychromasia (Not Present) Hypochromasia (Not Present) Anisocytosis (Not Present) Macrocytosis (Not Present) Target Cells (Not Present) PT (9.4-12.1) Seconds INR APTT (26.0-36.0) Seconds Sodium (136-145) mEq/L Potassium (3.5-4.5) mEq/L Chloride (98-109) mEq/L Carbon Dioxide (19-29) mEq/L BUN (8-26) mg/dL Creatinine (0.72-1.25) mg/dL Est GFR ( Amer) (> 60) Est GFR (Non-Af Amer) (> 60) BUN/Creatinine Ratio (6-26) Glucose (70-99) mg/dL Calculated Osmolality (280-300) Lactic Acid 1.8 (0.5-2.2) mmol/L Calcium (8.6-10.8) mg/dL Total Bilirubin (0.2-1.2) mg/dL Direct Bilirubin (0.0-0.5) mg/dL Indirect Bilirubin (0.0-1.2) mg/dL AST (5-34) Units/L ALT (0-55) Units/L Alkaline Phosphatase (38-126) Units/L Troponin I (0-0.03) ng/mL B-Natriuretic Peptide (0-100) pg/mL Serum Total Protein (6.0-8.3) g/dL Albumin (3.5-5.0) g/dL Globulin (2.4-3.5) g/dL Albumin/Globulin Ratio (1.1-2.2) Stool Occult Blood Positive A (Negative) Blood Type A POSITIVE Antibody Screen NEGATIVE Crossmatch See Detail - Radiology Data Radiology results reviewed: Yes I reviewed the patient's radiology results. - EKG Data EKG #1 EKG attestation: Yes I reviewed and interpreted this EKG. EKG results narrative: ECG - interpreted by ED physician. Rate 63 normal sinus rhythm, poor baseline, low voltage.
[2016-04-02] MEDS ORDERED: Naloxone 0.4 MG/ML INJ IVP PRN (06:22)
[2016-04-02] MEDS ORDERED: traMADol 50 MG TABLET PO PRN (06:29)
--- NOTE | 2016-04-02 08:31 | Internal Med History&Physical ---
Date of Encounter: 04/02/16 Time of Encounter: 04:00 Assessment and Plan (1) GI (gastrointestinal hemorrhage) Current visit: Yes Status: Acute Possibly secondary to portal hypertensive gastropathy. Patient does not want any workup at this time. Treat with pantoprazole. Qualifiers: GI bleed type/associated pathology: unspecified gastrointestinal hemorrhage type Qualified Code(s): K92.2 - Gastrointestinal hemorrhage, unspecified (2) Acute blood loss anemia Current visit: Yes Status: Acute Likely secondary to upper GI bleed/portal hypertensive gastropathy. Pt is agreeable for PRBC transfusion. 2 units of PRBC transfusion - monitor H&H (3) Hepatic encephalopathy Current visit: Yes Status: Acute Likely secondary to GI bleed. Lactulose as needed. Pt does not want treatment (4) Diabetes mellitus Current visit: Yes Status: Chronic Start sliding scale insulin Qualifiers: Diabetes mellitus type: type 2 Diabetes mellitus complication status: with kidney complications Diabetes mellitus complication detail: with chronic kidney disease Diabetes mellitus chcf insulin use: without ad terminal makeup operator use Chronic kidney disease stage: on chronic dialysis Qualified Code(s): E11.22 - Type 2 diabetes mellitus with diabetic chronic kidney disease; N18.6 - End stage renal disease; Z99.2 - Dependence on renal dialysis (5) ESRD (end stage renal disease) on dialysis Current visit: Yes Status: Chronic Hemodialysis M/W/F - Nephrology consultation (6) Liver cirrhosis secondary to nonalcoholic steatohepatitis (MONTANO) Current visit: Yes Status: Chronic Pt was planning for palliative care / hospice prior to this admission. Palliative care consult, to facilitate care (7) Ascites Current visit: Yes Status: Chronic Secondary to ascites - monitor Qualifiers: Ascites type: other type Qualified Code(s): R18.8 - Other ascites (8) Thrombocytopenia Current visit: Yes Status: Chronic (9) DVT prophylaxis Current visit: Yes Status: Acute SCDs Internal Medicine - H&P: HPI Chief complaint: melena; low blood pressure Admitted From: Emergency Dept Plans for Post Hospital Care: Home History of present illness: Mr. Ponce is a 65 year old male past medical history significant for an MONTANO , cirrhosis of liver, portal hypertension, consider gastropathy, end-stage renal disease on hemodialysis M/W/F, ascites - requiring weekly paracentesis. He also reports chronic hypotension. He apparently was noted to have low blood pressure during his dialysis session on thursday - he was sent to the ER and was discharged from the ER. [facility]. He was noted to have hemoglobin of 5.8, positive fecal occult blood. He is admitted to the hospitalist service for further management. Patient reports history of black stool, blood in stool for longtime. He denies hematemesis. He denies abdominal pain, chest pain, fever, chills , dysuria or hematuria. Reports fatigue and shortness of breath. He was started on PRBC transfusion, in the ER. He declined active treatment for Upper GI bleeding, including IV medications like octreotide, gastroenterology consultation are upper GI endoscopy. He wants to continue HD. He is opting for comfort care and apparently trying to get to [place] hospice. RN reports that his also expressed wish for comfort car. Past Med Surg Social Fam HX - Past Medical History Medical history: cirrhosis Psychiatric history: anxiety, depression, PTSD, other - Past Surgical History Surgical History: cholecystectomy, orthopedic, other, vasectomy, other - Social History Smoking Status: Unknown if ever smoked Smokeless Tobacco Status: No Alcohol use: none Drug use: none - Family History Mother Living Status: Hx Family Cardiac Disorders: Yes (chf) Father Living Status: Hx Family Endocrine Disorder: Yes (diabetes) Hx Family Neurologic Disorders: Yes (strokes, Alzheimers) Internal Medicine - H&P: Meds Cholecalciferol (Vitamin D3) [Vitamin D3] 2,000 unit PO DAILY 01/08/15 [History] FLUoxetine HCl [Prozac] 20 mg PO QAM 01/08/15 [History] Allopurinol [Zyloprim 100 MG] 50 mg PO DAILY 03/01/15 [History] Calcium Acetate 667 mg PO TIDWM 06/19/15 [History] Cyclobenzaprine HCl 10 mg PO TID 06/19/15 [History] Aspirin 81 mg PO DAILY 10/09/15 [History] Ondansetron HCl [Zofran] 4 mg PO Q6H PRN 10/12/15 [History] Midodrine [ProAmatine] 10 mg PO 0800,1200,1700 #90 tablet 10/18/15 [Rx] Renal Vitamin [Renal Caps Softgel] 1 mg PO DAILY 12/27/15 [History] Rifaximin [Xifaxan] 550 mg PO BID #60 tablet 01/01/16 [Rx] Nateglinide [Starlix] 60 mg PO TIDWM 02/28/16 [History] Lactulose 30 gm PO BID 03/03/16 [History] Menthol/Camphor [Anti-Itch Lotion] 1 appl TP BID PRN 03/03/16 [History] Omeprazole [PriLOSEC] 40 mg PO DAILY 03/03/16 [History] Sucralfate [Carafate] 1 gm PO BID 03/03/16 [History] Hydrocortisone Acetate [Anucort-HC] 25 mg RC TID PRN 04/02/16 [History] Allergies Oxycodone Adverse Reaction (Verified 04/01/16 23:00) Confusion All Systems PM: A 10-system review of systems was performed and is negative for pertinent findings except as documented above in the HPI. - Constitutional Vitals: Temp Pulse Resp BP Pulse Ox 97.6 F 65 14 78/67 96 04/02/16 07:56 04/02/16 05:07 04/02/16 05:07 04/02/16 05:07 04/02/16 05:07 Exam: General: Not in acute distress at the time of my evaluation HEENT: Oral mucosa is moist. conjunctival palor present Neck: No obvious neck swellings. There is right infraclavicular temporary dialysis catheter present Lungs: Clear to auscultation Cardiac: Regular rate and rhythm. systolic murmur present Abdomen: Distended with ascites, non tender. Bowel sounds present Neurological: Alert. Flapping tremors of the outstretched hands. No gross localizing deficits Psych: Not aggressive or agitated Extremities: no significant leg edema Skin: No generalized rash Internal Med - H&P Results - Labs CBC & Chem 7: 04/01/16 23:24 04/01/16 23:24 - Impressions ITS Impressions Chest X-Ray 04/01/16 22:22 IMPRESSION: Low lung volumes. No definite acute findings. D/ / Abigail Wright MD / Abigail Wright MD Interpreting Provider: Abigail Wright MD
[2016-04-02] MEDS ORDERED: 0.9 % Sodium Chloride 250 ML IV PRN (08:47)
[2016-04-02] MEDS ORDERED: Albumin 25% 12.5gm/50mL 12.5 GM/50 ML IV.SOLN IVPB PRN (08:47)
[2016-04-02] MEDS ORDERED: Lactulose Oral Soln 20 GM/30 ML UDC PO PRN (08:51)
--- NOTE | 2016-04-02 09:10 | Nephrology Consult Note ---
Date of Encounter: 04/02/16 Time of Encounter: 09:10 Assessment and Plan (1) ESRD (end stage renal disease) on dialysis Current Visit: Yes Status: Chronic The patient receives Thursday dialysis in [place]. He was sent to the ER on Thursday for hypertension and pain and received approximately 30 minutes of dialysis. Patient would like one final hemodialysis treatment as he will be entering hospice. (2) GI (gastrointestinal hemorrhage) Current Visit: Yes Status: Acute Patient was found to have a hemoglobin of 5.8 and positive fecal occult blood. He has refused any further workup. Received 2 units packed red blood cells with improvement in his hemoglobin to 7.8. Qualifiers: GI bleed type/associated pathology: unspecified gastrointestinal hemorrhage type Qualified Code(s): K92.2 - Gastrointestinal hemorrhage, unspecified (3) Liver cirrhosis secondary to nonalcoholic steatohepatitis (MONTANO) Current Visit: Yes Status: Chronic Patient has had workup at [facility], [facility], and the [facility], but unfortunately is not a candidate for liver transplant secondary to a portal vein issue. He does receive weekly paracentesis for recurrent ascites, and is requesting one final treatment tomorrow. (4) Thrombocytopenia Current Visit: Yes Status: Chronic (5) Diabetes mellitus Current Visit: Yes Status: Chronic Qualifiers: Diabetes mellitus type: type 2 Diabetes mellitus complication status: with kidney complications Diabetes mellitus complication detail: with chronic kidney disease Diabetes mellitus long term care phlebotomist insulin use: without intermediate use Chronic kidney disease stage: on chronic dialysis Qualified Code(s): E11.22 - Type 2 diabetes mellitus with diabetic chronic kidney disease; N18.6 - End stage renal disease; Z99.2 - Dependence on renal dialysis History of Present Illness - Reason for Consult end stage renal disease - History of Present Illness Mr. Ponce is a 65-year-old gentleman with a past medical history of end- stage renal disease requiring hemodialysis, MONTANO, liver cirrhosis, chronic anemia, diabetes mellitus type 2, chronic ascites requiring weekly paracentesis , and chronic hypotension who presented to the emergency department from his dialysis session on Thursday secondary to hypotension. He was discharged from the emergency department on Thursday, but due to feeling worse presented to the emergency department again on Thursday. He was found to have a hemoglobin of 5.8 and a positive fecal occult blood and was admitted to the ICU for further management. Patient unfortunately has significant liver disease and is not a candidate for transplant secondary to portal vein anatomy. Nephrology has been consulted to provide inpatient dialysis. Patient has met with palliative care and has decided on one last dialysis session as well as paracentesis tomorrow before entering hospice care. Past Med Surg Social Fam HX - Past Medical History Medical history: cirrhosis, liver disease, renal disease Psychiatric history: anxiety, depression, PTSD - Past Surgical History Surgical History: cholecystectomy, orthopedic, other, vasectomy - Social History Smoking Status: Unknown if ever smoked Smokeless Tobacco Status: No Alcohol use: none Drug use: none - Family History Mother Living Status: Hx Family Cardiac Disorders: Yes (chf) Father Living Status: Hx Family Endocrine Disorder: Yes (diabetes) Hx Family Neurologic Disorders: Yes (strokes, Alzheimers) Medications and Allergies Cholecalciferol (Vitamin D3) [Vitamin D3] 2,000 unit PO DAILY 01/08/15 [History] FLUoxetine HCl [Prozac] 20 mg PO QAM 01/08/15 [History] Allopurinol [Zyloprim 100 MG] 50 mg PO DAILY 03/01/15 [History] Calcium Acetate 1,334 mg PO TIDWM 06/19/15 [History] Cyclobenzaprine HCl 10 mg PO TID 06/19/15 [History] Aspirin 81 mg PO DAILY 10/09/15 [History] Ondansetron HCl [Zofran] 4 mg PO Q6H PRN 10/12/15 [History] Midodrine [ProAmatine] 10 mg PO 0800,1200,1700 #90 tablet 10/18/15 [Rx] Renal Vitamin [Renal Caps Softgel] 1 mg PO DAILY 12/27/15 [History] Rifaximin [Xifaxan] 550 mg PO BID #60 tablet 01/01/16 [Rx] Nateglinide [Starlix] 60 mg PO TIDWM 02/28/16 [History] Lactulose 30 gm PO BID 03/03/16 [History] Menthol/Camphor [Anti-Itch Lotion] 1 appl TP BID PRN 03/03/16 [History] Omeprazole [PriLOSEC] 40 mg PO DAILY 03/03/16 [History] Sucralfate [Carafate] 1 gm PO BID 03/03/16 [History] Hydrocortisone Acetate [Anucort-HC] 25 mg RC TID PRN 04/02/16 [History] Allergies Oxycodone Adverse Reaction (Verified 04/01/16 23:00) Confusion Review of Systems All Systems: reviewed and no additional remarkable complaints except as stated Exam - Vital Signs Vital signs: Initial Vital Signs Temp Pulse Resp BP Pulse Ox 97.7 F 64 16 79/42 100 04/01/16 22:10 04/01/16 22:10 04/01/16 22:10 04/01/16 22:10 04/01/16 22:10 Vital Signs - Last 8 Hours Temp Pulse Resp BP Pulse Ox 04/02/16 08:00 65 17 98/48 95 04/02/16 07:56 97.6 F - General Appearance Exam: General: Patient is alert and in no acute distress, ill appearing HEENT: Normocephalic atraumatic, pupils are equal round and reactive to light and accommodation, tympanic membrane is intact, nares is patent, mucous membranes moist, throat is not injected, no JVD, trachea is midline Cardiovascular: Regular rate and rhythm without murmur Respiratory: Lungs are clear to auscultation bilaterally, no wheezing, rhonchi, rales Abdomen: Distended, nontender, ascites noted, positive bowel sounds in all 4 quadrants Extremities: Warm, dry, trace lower extremity edema Neuro: A&Ox3, speech is appropriate, cranial nerves II through XII are normal as tested Results - Lab Results 04/02/16 09:16 04/01/16 23:24 Most recent lab results Calcium 8.7 mg/dL (8.6-10.8) 04/01/16 23:24 Consult Discharge Plan - Plan [facility]errals[facility] Care Provider[facility] -
[2016-04-02] MEDS ORDERED: Ondansetron ODT 4 MG TAB.RAPDIS SL PRN (09:34)
--- NOTE | 2016-04-02 09:36 | Palliative - Consult Note ---
<DallasManny Jaylon - Last Filed: 04/02/16 11:01> Date of Encounter: 04/02/16 Time of Encounter: 09:26 - Assessment and Plan (1) Goals of care, counseling/discussion Current Visit: No Status: Acute Assessment and plan: Patient seen and examined. PtJesús was recently discharged from [facility] and went to [place] in an attempt to get a liver transplant. 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 He then returned home, but came to the ER for dizziness and rectal bleeding. He received 2 units PRBC and was transferred to the ICU as a 2N overflow. His son is in the room with him and Mr. Ponce is awake and alert. They relayed that they spoke with their PCP [place] the [facility] yesterday and have decided to enter hospice with [facility]. Mr. Ponce does want dialysis one more time prior to entering hospice and nephrology has him scheduled for HD later today. His pain was not adequately controlled with the tramadol, so it has been changed to PO oxycodone 2.5mg q4h prn. The low dose is d/t the patients liver/ renal failure and poor drug clearance. He has zofran PRN for nausea. (2) Acute blood loss anemia Current Visit: Yes Status: Acute Assessment and plan: PtJesús reported rectal bleeding. Positive occult stool Hgb was 5.8 on admission and received 2 unite PRBC with Hgb now 7.8. Patient likely will not have anymore PRBC as he will be entering hospice. (3) Hepatic encephalopathy Current Visit: Yes Status: Acute Assessment and plan: 2/2 liver failure. (4) Ascites Current Visit: Yes Status: Chronic Assessment and plan: 2/2 liver failure Qualifiers: Ascites type: other type Qualified Code(s): R18.8 - Other ascites (5) ESRD (end stage renal disease) on dialysis Current Visit: Yes Status: Chronic Assessment and plan: HD today. Likely last dialysis before entering hospice. (6) Liver cirrhosis secondary to nonalcoholic steatohepatitis (BISWAS) Current Visit: Yes Status: Chronic (7) Upper GI bleed Current Visit: No Status: Acute Palliative-CN HPI - Data of Consult Patient: known to practice within the last 3 years Consult date: 04/02/16 Requesting Physician: Baldo Whitney MD Primary Care Provider: [place]CP [place] - Consult Narrative Palliative Care/Comfort Measures: Palliative care History of present illness: Mr. Ponce is a 65 year old male. Mr. Ponce known to palliative care team from December and once again February admission with history significant for Biswas -induced cirrhotic liver disease, portal systemic HTN with ascites and esophageal varices (weekly-biweekly paracenteses), H/O hepatitis B (immune), H/ O hepatitis A (immune), GERD/portal HTN gastropathy/antral vascular ectasia, PUD /duodenitis/GI bleed, nonobst-3vCAD/diastolic CHF/LVEF 65%, osteoarthritis, osteoporosis, gout/hyperuricemia, vitamin D deficiency, postural hypotension, type 2 diabetes mellitus, ESRD HD -dependent (Thursday), H/O CVA/ TIAs, H/O seizures, PTSD, depression and anxiety, hepatic encephalopathy, H/O SBP, anemia of chronic disease, hypertension, dyslipidemia, and adrenal insufficiency. Patient has had frequent admission for complications related to the above medical issues, and came back in this time for dizziness and GI bleeding. He was recently discharged and went to [place] to try to get a liver transplant. They were told that his portal vein was not viable and a liver transplant was not possible. Yesterday, 04/01/16, the family met with their PCP Dr. Zuniga from [place] and decided that Mr. Ponce would enter the [facility] hospice program. CC: Baldo Whitney MD Past Med Surg Social Fam HX - Past Medical History Medical history: cirrhosis Psychiatric history: anxiety, depression, PTSD, other - Past Surgical History Surgical History: cholecystectomy, orthopedic, other, vasectomy, other - Social History Smoking Status: Unknown if ever smoked Smokeless Tobacco Status: No Alcohol use: none Drug use: none - Family History Mother Living Status: Hx Family Cardiac Disorders: Yes (chf) Father Living Status: Hx Family Endocrine Disorder: Yes (diabetes) Hx Family Neurologic Disorders: Yes (strokes, Alzheimers) Medications and Allergies Cholecalciferol (Vitamin D3) [Vitamin D3] 2,000 unit PO DAILY 01/08/15 [History] FLUoxetine HCl [Prozac] 20 mg PO QAM 01/08/15 [History] Allopurinol [Zyloprim 100 MG] 50 mg PO DAILY 03/01/15 [History] Calcium Acetate 1,334 mg PO TIDWM 06/19/15 [History] Cyclobenzaprine HCl 10 mg PO TID 06/19/15 [History] Aspirin 81 mg PO DAILY 10/09/15 [History] Ondansetron HCl [Zofran] 4 mg PO Q6H PRN 10/12/15 [History] Midodrine [ProAmatine] 10 mg PO 0800,1200,1700 #90 tablet 10/18/15 [Rx] Renal Vitamin [Renal Caps Softgel] 1 mg PO DAILY 12/27/15 [History] Rifaximin [Xifaxan] 550 mg PO BID #60 tablet 01/01/16 [Rx] Nateglinide [Starlix] 60 mg PO TIDWM 02/28/16 [History] Lactulose 30 gm PO BID 03/03/16 [History] Menthol/Camphor [Anti-Itch Lotion] 1 appl TP BID PRN 03/03/16 [History] Omeprazole [PriLOSEC] 40 mg PO DAILY 03/03/16 [History] Sucralfate [Carafate] 1 gm PO BID 03/03/16 [History] Hydrocortisone Acetate [Anucort-HC] 25 mg RC TID PRN 04/02/16 [History] Allergies Oxycodone Adverse Reaction (Verified 04/01/16 23:00) Confusion ROS unobtainable: due to mental status (hepatic encephelopathy. Currently waxing and waning.) Palliative Care-Exam - Constitutional Vitals: Temp Pulse Resp BP Pulse Ox 97.6 F 65 17 98/48 95 04/02/16 07:56 04/02/16 08:00 04/02/16 08:00 04/02/16 08:00 04/02/16 08:00 General appearance: Present: disheveled, mild distress, obese Exam: abdominal ascites - Head Head Exam: Present: atraumatic - Respiratory Respiratory exam: Present: CTAB - Cardiovascular Cardiovascular exam: Present: RRR, +S1, +S2 - GI/Abdominal Exam GI/Abdominal exam: Present: normal bowel sounds - Expanded GI/Abdominal Exam GI/Abdominal exam: Present: ascites - Extremities Exam Extremities exam: Present: calf tenderness, tenderness (B/L LE tenderness) - Neurological Exam Neurological exam: Present: altered Internal Medicine - CN: Reslt - Labs CBC & Chem 7: 04/02/16 09:16 04/01/16 23:24 - ABG Interpretation ABG results: PT/INR, D-dimer PT 16.8 Seconds (9.4-12.1) H 04/01/16 23:24 Consult Discharge Plan - Plan [facility]errals: [facility],PCP [Primary Care Provider] - Palliative Quality Palliative Quality: Screen for Code Status: Yes, Screen for Goals of Care: Yes, Screen for Pain: Yes, If Pain Regimen Started, Initiate Bowel Regimen: Yes, Screen for Nausea/Vomitting: Yes <JeetPo Pamella - Last Filed: 04/02/16 11:26> Date of Encounter: 04/02/16 Palliative-CN HPI - Data of Consult Requesting Physician: Baldo Whitney MD Primary Care Provider: [place]CP [place] - Consult Narrative History of present illness: Mr. Ponce is a 65 year old male CC: Baldo Whitney MD Palliative Care-Exam - Constitutional Vitals: Temp Pulse Resp BP Pulse Ox 97.6 F 65 17 98/48 100 04/02/16 07:56 04/02/16 10:00 04/02/16 10:00 04/02/16 08:00 04/02/16 10:00 Internal Medicine - CN: Reslt - Labs CBC & Chem 7: 04/02/16 09:16 04/01/16 23:24 Labs: Short CBC 04/02/16 Range/Units 09:16 Hgb 7.8 L D (12.9-16.9) g/dL Hct 22.5 L (37.5-50.1) % - ABG Interpretation ABG results: PT/INR, D-dimer PT 16.8 Seconds (9.4-12.1) H 04/01/16 23:24 - Attending Attestation I examined this patient and my medical decision-making was reviewed with the COUNTER WAITRESS/WAITER/PA/Advanced Practice Nurse/Resident Physician. I agree with the documented findings, disposition and treatment plan as described except to the extent set forth below.
[2016-04-02] MEDS ORDERED: *HR* Dextrose 50 % in Water (Syg) 50 ML SYRINGE ONE (09:50)
[2016-04-02 10:04] LABS: Hematocrit 22.5 % (37.5-50.1); Hemoglobin 7.8 g/dL (12.9-16.9)
[2016-04-02] MEDS: Pantoprazole 40 MG VIAL IVP SCH ×2 (10:33→18:43)
[2016-04-02] MEDS: Zinc Sulfate 220 MG CAPSULE PO SCH (10:33)
[2016-04-02] MEDS: *HR* OxyCODONE Immed Rel 5 MG TABLET PO PRN ×2 (10:33→14:49)
[2016-04-02] MEDS ORDERED: *HR* Dextrose 50 % in Water (Syg) 50 ML SYRINGE IVP PRN (10:34)
--- NOTE | 2016-04-02 12:45 | Gastroenterology Consult Note ---
<BraydonMartinez Shani - Last Filed: 04/02/16 12:43> Date of Encounter: 04/02/16 Time of Encounter: 11:30 - Assessment and plan (1) GI (gastrointestinal hemorrhage) Current Visit: Yes Status: Acute Assessment and plan: Pt refuses workup for GI bleeding. He refuses any further EGDs or colonoscopies. The patient and family state the patient wants to receive dialysis and paracentesis one more time, and then go home to be comfortable. The patient and family were not interested in outpatient workup with capsule endoscopy either. Qualifiers: GI bleed type/associated pathology: unspecified gastrointestinal hemorrhage type Qualified Code(s): K92.2 - Gastrointestinal hemorrhage, unspecified (2) Hepatic encephalopathy Current Visit: Yes Status: Acute Assessment and plan: Rifaximin (400 mg TID while inpatient, 550 mg BID while outpatient), zinc, and Lactulose. Titrate Lactulose for 2-4 BMs daily. (3) Ascites Current Visit: Yes Status: Chronic Assessment and plan: Pt is due for paracentesis tomorrow and would like to complete it before being discharged. Qualifiers: Ascites type: other type Qualified Code(s): R18.8 - Other ascites (4) Liver cirrhosis secondary to nonalcoholic steatohepatitis (MONTANO) Current Visit: Yes Status: Chronic Assessment and plan: Current MELD Na 29, Evan Rabago Class C, DF 30.9. (5) ESRD (end stage renal disease) on dialysis Current Visit: Yes Status: Chronic - Time Spent With Patient Total time spent is greater than 50% in coordination of care (as documented) at patient's floor/unit and/or counseling patient: GI History of Present Illness - Data of Consult Patient: known to practice within the last 3 years Consult date: 04/02/16 Requesting Physician: Baldo Whitney MD - Consult Narrative Reason for consult: GI bleeding History of present illness: Mr. Ponce is a 65 year old male with PMHx of MONTANO, end-stage renal disease MWF dialysis,esophageal varices, liver cirrhosis, agent orange exposure, chronic anemia, diabetes mellitus 2, chronic ascites with weekly paracentesis. He apparently was noted to have low blood pressure during his dialysis session on thursday - he was sent to the ER and was discharged from the ER. He apparently went to the [place] and then sent to the ER at [facility]. He was noted to have hemoglobin of 5.8, positive fecal occult blood. He is admitted to the hospitalist service for further management. He denies abdominal pain, chest pain, fever, chills , dysuria or hematuria. Reports fatigue and shortness of breath. He declined active treatment for Upper GI bleeding, including IV medications like octreotide, gastroenterology consultation are upper GI endoscopy. He wants to continue HD. He is opting for comfort care and apparently trying to get to [facility] hospice. Procedures: EGD 02/15/2016: Normal esophagus, portal hypertensive gastropathy. NSAIDs: ASA Anticoagulation: None Past Med Surg Social Fam HX - Past Medical History Medical history: cirrhosis Psychiatric history: anxiety, depression, PTSD, other - Past Surgical History Surgical History: cholecystectomy, orthopedic, other, vasectomy, other - Social History Smoking Status: Unknown if ever smoked Smokeless Tobacco Status: No Alcohol use: none Drug use: none - Family History Mother Living Status: Hx Family Cardiac Disorders: Yes (chf) Father Living Status: Hx Family Endocrine Disorder: Yes (diabetes) Hx Family Neurologic Disorders: Yes (strokes, Alzheimers) - Gastrointestinal Gastrointestinal: Present: as per HPI - Constitutional Constitutional: as per HPI - EENT Eyes: as per HPI Ears: Present: as per HPI Nose, mouth and throat: Present: as per HPI - Cardiovascular Cardiovascular ROS: Present: as per HPI - Respiratory Respiratory IM: Present: as per HPI - Genitourinary Genitourinary: Absent: change in color, Urinary frequency - Neurological ROS Neurological GI: Present: as per HPI - Hematologic/Lymphatic Hematologic/Lymphatic pediatric: Present: as per HPI - Musculoskeletal Musculoskeletal ROS GI: Present: as per HPI - Integumentary Integumentary GI: Present: as per HPI - Psychiatric ROS Psychiatric GI: Present: as per HPI - Endocrine Endocrine IM: Present: as per HPI - Constitutional Vitals: Temp Pulse Resp BP Pulse Ox 97.6 F 65 17 98/48 100 04/02/16 07:56 04/02/16 10:00 04/02/16 10:00 04/02/16 08:00 04/02/16 10:00 General appearance: Present: cooperative, A&O X 3, no acute distress, answers questions appropriately - Head Head exam: Present: atraumatic, normocephalic - Eye Eye exam: Present: normal appearance, sclera anicteric - ENT ENT exam: Present: mucous membranes dry - Neck Neck exam general surgery: Present: normal inspection, trachea midline Additional comments: Dialysis catheter present - Respiratory Respiratory exam: Present: CTAB. Absent: rales, rhonchi - Cardiovascular Cardiovascular exam: Present: RRR, +S1, +S2 - GI/Abdominal GI/Abdominal exam: Present: distended, firm, soft, no peritoneal signs. Absent : guarding, tenderness - Expanded GI/Abdominal Exam GI/Abdominal exam expanded: Present: ascites - Rectal Rectal exam: Present: deferred - Extremities Exam Extremities exam: Present: warm - Neurological Exam Neurological exam: Present: no focal deficits - Psychiatric Psychiatric exam: Present: normal affect, normal mood - Skin Skin exam: Present: dry, intact, normal color, warm Results - Labs CBC & Chem 7: 04/02/16 09:16 04/01/16 23:24 Labs: Last Result Calcium 8.7 mg/dL (8.6-10.8) 04/01/16 23:24 Troponin I 0.03 ng/mL (0-0.03) 04/01/16 23:24 Stool Occult Blood Positive (Negative) A 04/02/16 00:30 Entire Visit Hgb 7.8 g/dL (12.9-16.9) L D 04/02/16 09:16 Hct 22.5 % (37.5-50.1) L 04/02/16 09:16 PT 16.8 Seconds (9.4-12.1) H 04/01/16 23:24 Total Bilirubin 1.9 mg/dL (0.2-1.2) H 04/01/16 23:24 AST 46 Units/L (5-34) H 04/01/16 23:24 ALT 42 Units/L (0-55) 04/01/16 23:24 - ABG ABG results: PT/INR, D-dimer PT 16.8 Seconds (9.4-12.1) H 04/01/16 23:24 Consult Discharge Plan - Plan [facility]errals: [facility] [Primary Care Provider] - <Brenda Velazquez - Last Filed: 04/02/16 18:27> Date of Encounter: 04/02/16 Time of Encounter: 18:00 - Time Spent With Patient Total time spent is greater than 50% in coordination of care (as documented) at patient's floor/unit and/or counseling patient: GI History of Present Illness - Data of Consult Requesting Physician: Baldo Whitney MD - Consult Narrative History of present illness: Mr. Ponce is a 65 year old male - Constitutional Vitals: Temp Pulse Resp BP Pulse Ox 97.6 F 65 16 95/33 100 04/02/16 17:40 04/02/16 10:00 04/02/16 17:40 04/02/16 17:40 04/02/16 10:00 Results - Labs CBC & Chem 7: 04/02/16 09:16 04/01/16 23:24 Labs: Last Result Calcium 8.7 mg/dL (8.6-10.8) 04/01/16 23:24 Troponin I 0.03 ng/mL (0-0.03) 04/01/16 23:24 Stool Occult Blood Positive (Negative) A 04/02/16 00:30 Entire Visit Hgb 7.8 g/dL (12.9-16.9) L D 04/02/16 09:16 Hct 22.5 % (37.5-50.1) L 04/02/16 09:16 PT 16.8 Seconds (9.4-12.1) H 04/01/16 23:24 Total Bilirubin 1.9 mg/dL (0.2-1.2) H 04/01/16 23:24 AST 46 Units/L (5-34) H 04/01/16 23:24 ALT 42 Units/L (0-55) 04/01/16 23:24 Ammonia 67 mcmol/L (18-72) 04/02/16 15:01 - ABG ABG results: PT/INR, D-dimer PT 16.8 Seconds (9.4-12.1) H 04/01/16 23:24 - Attending Attestation I examined this patient and my medical decision-making was reviewed with the SHIRT HEMMER/PA/Advanced Practice Nurse/Resident Physician. I agree with the documented findings, disposition and treatment plan as described except to the extent set forth below. END stage liver disease and renal disease currently on dialysis. He was seen [facility] [place] for possible liver transplant evaluation but was rejected. There ar EGD with cauterization of question AVM in the stomach was done. Patient admitted with anemia again. Multiple EGD and colonoscopy in the past were unremarkable. Recommend capsule endoscopy as an outpatient if go along with his hospice care.
[2016-04-02] MEDS ORDERED: 0.9 % Sodium Chloride 2,000 ML ONE (14:25)
--- NOTE | 2016-04-02 14:55 | Electrocardiograph Report ---
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
[2016-04-02] MEDS ORDERED: OxyCODONE CONC 5 MG/0.25 ML ORAL.SYG PO PRN (16:06)
[2016-04-02] MEDS ORDERED: Haloperidol Oral Conc 10 MG/5 ML UDC PO PRN (16:07)
[2016-04-02] MEDS: *HR* HYDROmorphone 2 MG/ML SYRINGE IVP PRN (16:21)
--- NOTE | 2016-04-02 17:52 | Internal Med Progress Note ---
Date of Encounter: 04/02/16 Time of Encounter: 10:00 - Assessment and plan (1) Acute blood loss anemia Current Visit: Yes Status: Acute Assessment and plan: Due to GI bleeding. We will give transfusion and follow-up H&H (2) Cirrhosis Current Visit: No Status: Acute Assessment and plan: Patient has counseled for liver transplant but was told that he is not a candidate. Patient and the family wished to have palliative care or hospice. Qualifiers: Hepatic cirrhosis type: unspecified hepatic cirrhosis Ascites presence: with ascites Qualified Code(s): K74.60 - Unspecified cirrhosis of liver (3) Hepatic encephalopathy Current Visit: No Status: Acute Assessment and plan: We will continue lactulose, rifaxamin, and zinc. Keep bowel movement 2-3 times a day. (4) Hyperkalemia Current Visit: No Status: Acute Assessment and plan: Patient will have hemodialysis today (5) Cirrhosis of liver with ascites Current Visit: No Status: Chronic Assessment and plan: Continue weekly paracentesis Qualifiers: Hepatic cirrhosis type: unspecified hepatic cirrhosis Qualified Code(s): K74.60 - Unspecified cirrhosis of liver (6) End-stage renal disease on hemodialysis Current Visit: No Status: Chronic Assessment and plan: Pt is on HD. - Time Spent With Patient 25 - 35 minutes - Subjective Interval history: Patient is a 65-year-old male admitted for GI bleeding. His past medical history is significant for cirrhosis, end-stage renal disease on hemodialysis, ascites need a weekly paracentesis. Patient was seen and examined. He is lethargic, awake alert, on blood transfusion. Palliative care, nephrology, and GI consult appreciated. Patient and the family expressed the willing of Hospice care. Want one more hemodialysis which will arranged today and paracentesis, which will be done tomorrow. - Constitutional Vitals: Temp Pulse Resp BP Pulse Ox 97.6 F 65 16 63/25 100 04/02/16 14:15 04/02/16 10:00 04/02/16 14:15 04/02/16 17:15 04/02/16 10:00 General appearance: Present: A&O X 2, mild distress, answers questions appropriately - Head Head exam: Present: atraumatic, normocephalic - Eye Eye exam: Present: PERRL, conjuntiva pink, sclera anicteric Pupils: Present: PERRL - Neck Neck exam general surgery: Present: supple, trachea midline. Absent: lymphadenopathy - Respiratory Respiratory exam: Present: CTAB. Absent: accessory muscle use, rales, rhonchi, wheezes - Cardiovascular Cardiovascular exam: Present: RRR, +S1, +S2. Absent: diastolic murmur, gallop, rubs, systolic murmur - GI/Abdominal GI/Abdominal exam: Present: distended, normal bowel sounds, soft, no peritoneal signs. Absent: tenderness - Extremities Exam Extremities exam: Present: warm, radial pulses palpable and symetrical. Absent : calf tenderness, cyanotic, pedal edema - Neurological Exam Neurological exam: Present: CN II-XII intact, oriented X3, no focal deficits. Absent: pronater drift, facial droop, speech deficit - Skin Skin exam: Present: dry, intact Internal Medicine: Result - Labs CBC & Chem 7: 04/02/16 09:16 04/01/16 23:24 Labs: Short CBC 04/02/16 Range/Units 09:16 Hgb 7.8 L D (12.9-16.9) g/dL Hct 22.5 L (37.5-50.1) % - ABG Interpretation ABG results: PT/INR, D-dimer PT 16.8 Seconds (9.4-12.1) H 04/01/16 23:24 Consult Discharge Plan - Plan Referrals: [facility] [Primary Care Provider] -
[2016-04-02] MEDS: Lactulose Oral Soln 20 GM/30 ML UDC PO SCH (21:45)
[2016-04-03] MEDS: Pantoprazole 40 MG VIAL IVP SCH (05:45)
[2016-04-03 06:24] LABS: Basophils % 0.6 %; Eosinophils # 0.2 K/mcL (0.0-0.6); Eosinophils % 4.1 %; Hematocrit 19.2 % (37.5-50.1); Hemoglobin 6.5 g/dL (12.9-16.9); Immature Granulocytes % 0.2 % (0-4); Lymphocytes % 20.9 %; Mean Corpuscular HGB Conc 33.9 g/dL (31.6-35.5); Mean Corpuscular Hemoglobin 32.8 pg (28.0-33.3); Mean Platelet Volume 11.4 fL (9.4-12.4); Monocytes # 0.9 K/mcL (0.0-1.3); Monocytes % 18.1 %; Neutrophils # 2.8 K/mcL (1.6-8.9); Platelet Count 45 K/mcL (140-400); Red Blood Count 1.98 M/mcL (4.19-5.50); Red Cell Distribution Width 23.2 % (11.5-14.5); Segmented Neutrophils % 56.1 %
[2016-04-03 07:25] VITALS: BP 78/42
[2016-04-03] MEDS: Zinc Sulfate 220 MG CAPSULE PO SCH (08:23)
[2016-04-03 08:24] LABS: Acanthocytes 1+ (Not Present); Anisocytosis 2+ (Not Present); Helmet Cells Present (Not Present); Poikilocytosis 1+ (Not Present); Target Cells 1+ (Not Present)
[2016-04-03] MEDS: Lactulose Oral Soln 20 GM/30 ML UDC PO SCH (08:24)
[2016-04-03 08:25] LABS: Platelet Estimate Marked Decrease (Normal); Polychromasia 1+ (Not Present)
--- NOTE | 2016-04-03 08:56 | Event Note ---
Date of Encounter: 04/03/16 Time of Encounter: 08:54 Patient wishes to be comfort care at this point and wanted yesterday to be his last dialysis treatment. Nephrology signing off case at this time.
--- NOTE | 2016-04-03 09:53 | Palliative Progress Note ---
<Po Marcano - Last Filed: 04/03/16 10:44> Date of Encounter: 04/03/16 - Assessment and plan (1) Pain Current Visit: Yes Status: Acute Assessment and plan: The pain has been well controlled thus far with Dilaudid will continue to use this. (2) Constipation by delayed colonic transit Current Visit: Yes Status: Acute Assessment and plan: Will continue senna as long as the patient's able to take by mouth, and will use rectal suppositories. (3) Acute blood loss anemia Current Visit: Yes Status: Acute (4) GI (gastrointestinal hemorrhage) Current Visit: Yes Status: Acute Assessment and plan: The patient wishes to have no further studies done and no interventions made. Therefore the patient is transitioning to general inpatient hospice today. Further workup will be done, and he will be no further blood transfusions given. She is platelet count was low enough today to cause problems for placing a Pleurx catheter however IR was kind enough to go ahead and do the paracentesis. We will watch him as a general inpatient hospice patient and repeat paracentesis if necessary. Qualifiers: GI bleed type/associated pathology: unspecified gastrointestinal hemorrhage type Qualified Code(s): K92.2 - Gastrointestinal hemorrhage, unspecified (5) Ascites Current Visit: Yes Status: Chronic Qualifiers: Ascites type: other type Qualified Code(s): R18.8 - Other ascites (6) ESRD (end stage renal disease) on dialysis Current Visit: Yes Status: Chronic (7) Liver cirrhosis secondary to nonalcoholic steatohepatitis ([place]AN[place]) Current Visit: Yes Status: Chronic (8) Thrombocytopenia Current Visit: Yes Status: Chronic Assessment and plan: She has normal cytopenia this has interfered with him getting a Pleurx catheter placed, however they did go ahead and do the paracentesis for his ascites. New to monitor and repeat paracentesis if necessary. Will receive no more therapy for thrombocytopenia. (9) Goals of care, counseling/discussion Current Visit: Yes Status: Acute Assessment and plan: The patient has opted for comfort care, therefore he has been made DNR CC. His final dialysis done yesterday does not wish to have any further dialysis done. The patient appears to have an active GI bleed going, therefore he will go general inpatient hospice for ongoing symptom symptomatic treatment. And consideration of a repeat paracentesis if necessary. Catheter could not be placed due to his thrombocytopenia. Given the overall condition, his end-stage renal disease and dependency on dialysis as well as appears to be an active GI bleed I expect the patient will pass here. - Time Spent With Patient Total time spent is greater than 50% in coordination of care (as documented) at patient's floor/unit and/or counseling patient: - Subjective Interval history: On return from is complaining about pain. The pain medications have been seen for him generally pretty well. He stands about the switch over to general inpatient hospice care. - Constitutional Vitals: Abnormal lab results RBC 1.98 M/mcL (4.19-5.50) L 04/03/16 05:55 Hgb 6.5 g/dL (12.9-16.9) L 04/03/16 05:55 Hct 19.2 % (37.5-50.1) L 04/03/16 05:55 RDW 23.2 % (11.5-14.5) H 04/03/16 05:55 Plt Count 45 K/mcL (140-400) L 04/03/16 05:55 Platelet Estimate Marked Decrease (Normal) L 04/03/16 05:55 Polychromasia 1+ (Not Present) A 04/03/16 05:55 Hypochromasia Present (Not Present) A 04/01/16 23:24 Poikilocytosis 1+ (Not Present) A 04/03/16 05:55 Anisocytosis 2+ (Not Present) A 04/03/16 05:55 Macrocytosis Present (Not Present) A 04/01/16 23:24 Target Cells 1+ (Not Present) A 04/03/16 05:55 Helmet Cells Present (Not Present) A 04/03/16 05:55 Acanthocytes (Spur) 1+ (Not Present) A 04/03/16 05:55 PT 16.8 Seconds (9.4-12.1) H 04/01/16 23:24 APTT 38.0 Seconds (26.0-36.0) H 04/01/16 23:24 Sodium 133 mEq/L (136-145) L 04/01/16 23:24 Potassium 6.4 mEq/L (3.5-4.5) H 04/01/16 23:24 Chloride 97 mEq/L (98-109) L 04/01/16 23:24 BUN 93 mg/dL (8-26) H D 04/01/16 23:24 Creatinine 9.44 mg/dL (0.72-1.25) H 04/01/16 23:24 Est GFR ( Amer) 7 (> 60) L 04/01/16 23:24 Est GFR (Non-Af Amer) 6 (> 60) L 04/01/16 23:24 POC Glucose 43 (58-89) L* 04/02/16 09:48 Calculated Osmolality 303 (280-300) H 04/01/16 23:24 Total Bilirubin 1.9 mg/dL (0.2-1.2) H 04/01/16 23:24 Direct Bilirubin 1.3 mg/dL (0.0-0.5) H 04/01/16 23:24 AST 46 Units/L (5-34) H 04/01/16 23:24 Alkaline Phosphatase 156 Units/L (38-126) H 04/01/16 23:24 B-Natriuretic Peptide 160 pg/mL (0-100) H 04/01/16 23:24 Serum Total Protein 4.8 g/dL (6.0-8.3) L 04/01/16 23:24 Albumin 2.4 g/dL (3.5-5.0) L 04/01/16 23:24 Albumin/Globulin Ratio 1.0 (1.1-2.2) L 04/01/16 23:24 Stool Occult Blood Positive (Negative) A 04/02/16 00:30 General appearance: Present: mild distress (Secondary to pain) - Head Head exam: Present: atraumatic, normal inspection - Eye Eye exam: Present: normal appearance - ENT ENT exam: Present: mucous membranes moist - Respiratory Respiratory exam: Present: decreased breath sounds (Slightly ) - Cardiovascular Cardiovascular exam: Present: RRR - GI/Abdominal GI/Abdominal exam: Present: normal bowel sounds, soft. Absent: tenderness - Extremities Exam Extremities exam: Present: normal inspection. Absent: pedal edema, tenderness - Neurological Exam Neurological exam: Present: alert (Able to answer questions. ) - Psychiatric Psychiatric exam: Present: normal affect, normal mood. Absent: agitated, anxious - Skin Skin exam: Present: dry, warm Palliative Quality Palliative Quality: Screen for Code Status: Yes, Screen for Goals of Care: Yes, Screen for Pain: Yes, If Pain Regimen Started, Initiate Bowel Regimen: Yes, Screen for Nausea/Vomitting: Yes - Labs CBC & Chem 7: 04/03/16 05:55 04/01/16 23:24 Labs: Laboratory Results - last 24 hr 04/02/16 04/02/16 04/03/16 09:48 15:01 05:55 WBC 4.9 RBC 1.98 L Hgb 6.5 L Hct 19.2 L MCV 97.0 MCH 32.8 MCHC 33.9 RDW 23.2 H Plt Count 45 L MPV 11.4 Immature Gran % 0.2 Seg Neutrophils % 56.1 Lymphocytes % 20.9 Monocytes % 18.1 Eosinophils % 4.1 Basophils % 0.6 Neutrophils # 2.8 Lymphocytes # 1.0 Monocytes # 0.9 Eosinophils # 0.2 Basophils # 0.0 Platelet Estimate Marked Decrease L Polychromasia 1+ A Poikilocytosis 1+ A Anisocytosis 2+ A Target Cells 1+ A Helmet Cells Present A Acanthocytes (Spur) 1+ A POC Glucose 43 L* Ammonia 67 - Impressions Impressions Paracentesis Ultrasound 04/03/16 00:00 IMPRESSION: Successful ultrasound guided paracentesis. D/ / Pamela Baptiste MD / Pamela Baptiste MD Interpreting Provider: Pamela Baptiste MD - ABG Interpretation ABG results: PT/INR, D-dimer PT 16.8 Seconds (9.4-12.1) H 04/01/16 23:24 Consult Discharge Plan - Plan [facility] Provider[facility] - <Manny Dallas - Last Filed: 04/03/16 11:00> Date of Encounter: 04/03/16 Time of Encounter: 09:53 - Assessment and plan (1) Goals of care, counseling/discussion Current Visit: No Status: Acute (2) Acute blood loss anemia Current Visit: Yes Status: Acute (3) Hepatic encephalopathy Current Visit: Yes Status: Acute (4) Ascites Current Visit: Yes Status: Chronic Qualifiers: Ascites type: other type Qualified Code(s): R18.8 - Other ascites (5) ESRD (end stage renal disease) on dialysis Current Visit: Yes Status: Chronic (6) Liver cirrhosis secondary to nonalcoholic steatohepatitis ([place]) Current Visit: Yes Status: Chronic (7) Upper GI bleed Current Visit: No Status: Acute - Time Spent With Patient Total time spent is greater than 50% in coordination of care (as documented) at patient's floor/unit and/or counseling patient: - Subjective Interval history: Patient seen and examined. He has opted to stop all invasive therapies, including dialysis, PRBC, and just have comfort measures. He will be discharged from Hospitalists service and admitted to [facility] as a GIP. He is currently getting one final paracentesis for ascites. No other complaints at this time. - Constitutional Vitals: Abnormal lab results RBC 1.98 M/mcL (4.19-5.50) L 04/03/16 05:55 Hgb 6.5 g/dL (12.9-16.9) L 04/03/16 05:55 Hct 19.2 % (37.5-50.1) L 04/03/16 05:55 RDW 23.2 % (11.5-14.5) H 04/03/16 05:55 Plt Count 45 K/mcL (140-400) L 04/03/16 05:55 Platelet Estimate Marked Decrease (Normal) L 04/03/16 05:55 Polychromasia 1+ (Not Present) A 04/03/16 05:55 Hypochromasia Present (Not Present) A 04/01/16 23:24 Poikilocytosis 1+ (Not Present) A 04/03/16 05:55 Anisocytosis 2+ (Not Present) A 04/03/16 05:55 Macrocytosis Present (Not Present) A 04/01/16 23:24 Target Cells 1+ (Not Present) A 04/03/16 05:55 Helmet Cells Present (Not Present) A 04/03/16 05:55 Acanthocytes (Spur) 1+ (Not Present) A 04/03/16 05:55 PT 16.8 Seconds (9.4-12.1) H 04/01/16 23:24 APTT 38.0 Seconds (26.0-36.0) H 04/01/16 23:24 Sodium 133 mEq/L (136-145) L 04/01/16 23:24 Potassium 6.4 mEq/L (3.5-4.5) H 04/01/16 23:24 Chloride 97 mEq/L (98-109) L 04/01/16 23:24 BUN 93 mg/dL (8-26) H D 04/01/16 23:24 Creatinine 9.44 mg/dL (0.72-1.25) H 04/01/16 23:24 Est GFR ( Amer) 7 (> 60) L 04/01/16 23:24 Est GFR (Non-Af Amer) 6 (> 60) L 04/01/16 23:24 POC Glucose 43 (58-89) L* 04/02/16 09:48 Calculated Osmolality 303 (280-300) H 04/01/16 23:24 Total Bilirubin 1.9 mg/dL (0.2-1.2) H 04/01/16 23:24 Direct Bilirubin 1.3 mg/dL (0.0-0.5) H 04/01/16 23:24 AST 46 Units/L (5-34) H 04/01/16 23:24 Alkaline Phosphatase 156 Units/L (38-126) H 04/01/16 23:24 B-Natriuretic Peptide 160 pg/mL (0-100) H 04/01/16 23:24 Serum Total Protein 4.8 g/dL (6.0-8.3) L 04/01/16 23:24 Albumin 2.4 g/dL (3.5-5.0) L 04/01/16 23:24 Albumin/Globulin Ratio 1.0 (1.1-2.2) L 04/01/16 23:24 Stool Occult Blood Positive (Negative) A 04/02/16 00:30 Palliative Quality Palliative Quality: Screen for Code Status: Yes, Screen for Goals of Care: Yes, Screen for Pain: Yes, If Pain Regimen Started, Initiate Bowel Regimen: Yes, Screen for Nausea/Vomitting: Yes - Labs CBC & Chem 7: 04/03/16 05:55 04/01/16 23:24 Labs: Laboratory Results - last 24 hr 04/02/16 04/02/16 04/02/16 09:16 09:48 15:01 WBC RBC Hgb 7.8 L D Hct 22.5 L MCV MCH MCHC RDW Plt Count MPV Immature Gran % Seg Neutrophils % Lymphocytes % Monocytes % Eosinophils % Basophils % Neutrophils # Lymphocytes # Monocytes # Eosinophils # Basophils # Platelet Estimate Polychromasia Poikilocytosis Anisocytosis Target Cells Helmet Cells Acanthocytes (Spur) POC Glucose 43 L* Ammonia 67 04/03/16 05:55 WBC 4.9 RBC 1.98 L Hgb 6.5 L Hct 19.2 L MCV 97.0 MCH 32.8 MCHC 33.9 RDW 23.2 H Plt Count 45 L MPV 11.4 Immature Gran % 0.2 Seg Neutrophils % 56.1 Lymphocytes % 20.9 Monocytes % 18.1 Eosinophils % 4.1 Basophils % 0.6 Neutrophils # 2.8 Lymphocytes # 1.0 Monocytes # 0.9 Eosinophils # 0.2 Basophils # 0.0 Platelet Estimate Marked Decrease L Polychromasia 1+ A Poikilocytosis 1+ A Anisocytosis 2+ A Target Cells 1+ A Helmet Cells Present A Acanthocytes (Spur) 1+ A POC Glucose Ammonia - ABG Interpretation ABG results: PT/INR, D-dimer PT 16.8 Seconds (9.4-12.1) H 04/01/16 23:24
[2016-04-03] MEDS: *HR* HYDROmorphone 2 MG/ML SYRINGE IVP PRN (10:44)
--- NOTE | 2016-04-03 11:30 | Discharge Summary ---
Date of Encounter: 04/03/16 Time of Encounter: 11:29 - Discharge Diagnosis (1) Acute blood loss anemia Priority: Primary Status: Acute (2) GI bleed Priority: Primary Status: Acute Qualifiers: GI bleed type/associated pathology: unspecified gastrointestinal hemorrhage type Qualified Code(s): K92.2 - Gastrointestinal hemorrhage, unspecified (3) Hepatic encephalopathy Priority: Primary Status: Resolved (4) Hypotension Priority: Primary Status: Acute Qualifiers: Hypotension type: unspecified hypotension type Qualified Code(s): I95.9 - Hypotension, unspecified (5) Cirrhosis of liver with ascites Priority: Secondary Status: Chronic Qualifiers: Hepatic cirrhosis type: unspecified hepatic cirrhosis Qualified Code(s): K74.60 - Unspecified cirrhosis of liver (6) DM (diabetes mellitus), type 2 with renal complications Priority: Secondary Status: Chronic Qualifiers: Diabetes mellitus complication detail: with other kidney complication Diabetes mellitus assisted insulin use: without assisted use Qualified Code( s): E11.29 - Type 2 diabetes mellitus with other diabetic kidney complication (7) ESRD (end stage renal disease) Priority: Secondary Status: Chronic (8) Hx of esophageal varices Priority: Secondary Status: Chronic (9) Pancytopenia Priority: Secondary Status: Chronic - Discharge Medications Home Medications: Cholecalciferol (Vitamin D3) [Vitamin D3] 2,000 unit PO DAILY 01/08/15 [History] FLUoxetine HCl [Prozac] 20 mg PO QAM 01/08/15 [History] Allopurinol [Zyloprim 100 MG] 50 mg PO DAILY 03/01/15 [History] Calcium Acetate 1,334 mg PO TIDWM 06/19/15 [History] Cyclobenzaprine HCl 10 mg PO TID 06/19/15 [History] Aspirin 81 mg PO DAILY 10/09/15 [History] Ondansetron HCl [Zofran] 4 mg PO Q6H PRN 10/12/15 [History] Midodrine [ProAmatine] 10 mg PO 0800,1200,1700 #90 tablet 10/18/15 [Rx] Renal Vitamin [Renal Caps Softgel] 1 mg PO DAILY 12/27/15 [History] Rifaximin [Xifaxan] 550 mg PO BID #60 tablet 01/01/16 [Rx] Nateglinide [Starlix] 60 mg PO TIDWM 02/28/16 [History] Lactulose 30 gm PO BID 03/03/16 [History] Menthol/Camphor [Anti-Itch Lotion] 1 appl TP BID PRN 03/03/16 [History] Omeprazole [PriLOSEC] 40 mg PO DAILY 03/03/16 [History] Sucralfate [Carafate] 1 gm PO BID 03/03/16 [History] Hydrocortisone Acetate [Anucort-HC] 25 mg RC TID PRN 04/02/16 [History] Allergies/Adverse Reactions: Allergies Oxycodone Adverse Reaction (Verified 04/01/16 23:00) Confusion Procedures/tests Complete & Pending: Procedures Performed prior 72 hours Category Date Time Status IR paracentesis ultrasound [IR] Routine IR 04/03/16 Completed Date of admission: 04/02/16 06:22 Primary care physician: PCP LUIS Consults: 04/02/16 06:25 Consult to Palliative Care [CONS] Routine Comment: Consulting Provider: Palliative Care [place] 04/02/16 06:27 Consult to Nephrology [CONS] Routine Consulting Provider: Kidney Emy/[place]/JORGE/SKYLER Reason for Consult: ESRD on HD Call Completed: No 04/02/16 08:20 Consult to Gastroenterology [CONS] Routine Consulting Provider: Gastroenterology Emy Reason for Consult: GI bleeding Call Completed: No 04/02/16 09:00 Consult to Dialysis [CONS] ONCE 04/02/16 14:04 Consult to Interventional Radiology [CONS] Stat Consulting Provider: Radiology Interventional Cols Reason for Consult: going into hospice,for hepatic/renal failure requiring weekly paracentesis please eval for indwelling abdominal drain Time Notified: 14:00 Call Completed: Yes Discharging clinician: Reji Ashton Anticipated date of discharge: 04/03/16 - Patient Status Disposition: Hospice - Medical Facility Condition: Good Functional capacity at discharge: bed bound Overall status at discharge: patient is not back to baseline - Discharge Instructions Follow Up With: LUIS,PCP [Primary Care Provider] - - Diet and Activity Activity: resume usual activities as tolerated Interval History: 65 Y/O M with PMH of Decompensated liver cirrhosis, ESRD on HD, DM, Patient was admitted and being managed for acute metabolic encephalopathy from hepatic encephalopathy, Acute blood loss anemia from GI bleed possibly from esophageal varices. He is also hypotensive but chronically so , due to advanced liver disease Hospital course: Mr. Ponce is a 65 year old male Patient was seen at bedside with family members He received HD session yesterday which per chart and family is the last one he will be getting He is no longer interested in pursuing any further work up for his GI bleed/ anemia He is also hypotensive and has opted for no intervention He will be kept comfortable per wishes and is being discharged to in-patient hospice - Time Spent with Patient Total time spent providing and/or coordinating discharge services: - Constitutional Vitals: Temp Pulse Resp BP Pulse Ox 97.9 F 683 16 78/42 92 L 04/03/16 07:20 04/03/16 07:20 04/03/16 07:20 04/03/16 07:20 04/02/16 18:50 General appearance: Present: A&O X 2, mild distress, answers questions appropriately - Head Head exam: Present: atraumatic, normocephalic - Eye Additional comments: Conjunctival pallor, slight sclera icterus - Neck Neck exam general surgery: Present: supple, trachea midline. Absent: lymphadenopathy - Respiratory Respiratory exam: Present: CTAB. Absent: accessory muscle use, rales, rhonchi, wheezes - Cardiovascular Cardiovascular exam: Present: RRR, +S1, +S2. Absent: diastolic murmur, gallop, rubs, systolic murmur - GI/Abdominal GI/Abdominal exam: Present: normal bowel sounds, soft, no peritoneal signs. Absent: tenderness - Extremities Exam Extremities exam: Present: warm, radial pulses palpable and symetrical. Absent : calf tenderness, cyanotic, pedal edema - Neurological Exam Neurological exam: Present: CN II-XII intact, oriented X3, no focal deficits. Absent: pronater drift, facial droop, speech deficit - Skin Skin exam: Present: dry
== END 2016-04-03 11:42 | disposition hospice, inpatient (51) | DRG 377 ==
LOC: EMEROO 22:08 → ICNU 22:08 → SUATTDRO 04-02 06:22 → 2ANU 04-02 15:02
PROVIDERS: ADMIT Hospitalist; ATTEND Internal Medicine

== ENCOUNTER 2016-04-03 09:16 | Inpatient (IN) ==
[2016-04-03] MEDS ORDERED: Haloperidol Lactate 5 MG/ML VIAL IVP PRN (09:35)
[2016-04-03] MEDS ORDERED: Ondansetron 4 MG/2 ML VIAL IVP PRN (09:35)
[2016-04-03] MEDS ORDERED: *HR* LORazepam 2 MG/ML VIAL IVP PRN (09:35)
--- NOTE | 2016-04-03 11:06 | Palliative Progress Note ---
Date of Encounter: 04/03/16 Time of Encounter: 11:03 - Assessment and plan (1) Pain Status: Acute Assessment and plan: We will continue to use Dilaudid as needed for pain if the patient loses the IV we will switch to liquid oxycodone. (2) Acute blood loss anemia Status: Acute Assessment and plan: No further blood draws, no transfusions. (3) Constipation by delayed colonic transit Status: Acute Assessment and plan: Will continue senna for as long as the patient can take by mouth, and then rely on suppositories. (4) GI (gastrointestinal hemorrhage) Status: Acute Assessment and plan: The patient has requested no further workup, we will therefore stop any further workup. No further blood draws, no transfusions. Qualifiers: GI bleed type/associated pathology: unspecified gastrointestinal hemorrhage type Qualified Code(s): K92.2 - Gastrointestinal hemorrhage, unspecified (5) Goals of care, counseling/discussion Status: Acute Assessment and plan: DNR comfort care, patient has opted for general inpatient hospice status. The patient will be maintained on general hospice status due to his active GI bleed. I believe that he will be following a very steep dissent. Not believe that he will feel be adequately taking care of at home. We will require the services of an acute care hospital for symptomatic relief. (6) Ascites Status: Chronic Assessment and plan: The patient had a paracentesis today. He is not eligible for a Pleurx catheter due to his platelet count. If he lasts long enough to require another paracentesis will entertain that at that time. Qualifiers: Ascites type: other type Qualified Code(s): R18.8 - Other ascites (7) ESRD (end stage renal disease) on dialysis Status: Chronic Assessment and plan: The patient requested that yesterday's dialysis be his last. Patient will have no further dialysis. (8) Liver cirrhosis secondary to nonalcoholic steatohepatitis ([place]) Status: Chronic Assessment and plan: The patient has end-stage liver disease. He was not deemed appropriate for transplant therefore he has opted for hospice care. Patient is now general inpatient hospice for symptomatic control. No further aggressive care will be done. - Time Spent With Patient Total time spent is greater than 50% in coordination of care (as documented) at patient's floor/unit and/or counseling patient: - Subjective Interval history: The patient has end-stage renal and neck disease. He value weighted thoroughly for transplant and this has been rejected due to the fact that he has a poor portal vein and therefore could not tolerate the transplant. The patient had been hanging on and continuing dialysis with the idea that he will might get the transplant, and now that he cannot he wishes to go with comfort care only. He finished having his last dialysis yesterday, and has just had a paracentesis. Is having active abdominal pain which is well controlled with current medications. It is a very deep ache that is worse with movement and better with rest probably as a 7 or 8/10 and is relieved by medications. It is not associated with any other signs or symptoms. The patient is not having any active nausea at this time as not had a bowel movement in the last couple of days, however his appetite is also very down. - Constitutional General appearance: Present: mild distress (Secondary to abdominal pain ) - Head Head exam: Present: atraumatic, normal inspection - Eye Eye exam: Present: EOMI, normal appearance - ENT ENT exam: Present: mucous membranes moist - Respiratory Respiratory exam: Present: CTAB - Cardiovascular Cardiovascular exam: Present: RRR - GI/Abdominal GI/Abdominal exam: Present: distended (Much less than yesterday ), normal bowel sounds, soft, tenderness (Slightly in area of paracentesis ) - Extremities Exam Extremities exam: Present: normal inspection. Absent: pedal edema, tenderness - Neurological Exam Neurological exam: Present: alert - Psychiatric Psychiatric exam: Present: normal affect, normal mood. Absent: agitated, anxious - Skin Skin exam: Present: dry, warm Palliative Quality Palliative Quality: Screen for Code Status: Yes, Screen for Goals of Care: Yes, Screen for Pain: Yes, If Pain Regimen Started, Initiate Bowel Regimen: Yes, Screen for Nausea/Vomitting: Yes Code Status: 04/03/16 09:35 Resuscitation Status: Active [RES] Stat Comment: Resuscitation Status: DNR-Comfort Care
[2016-04-03] MEDS: *HR* HYDROmorphone (PF) 1 MG/ML SYRINGE IVP PRN (14:09)
[2016-04-03] MEDS: Bisacodyl 10 MG RECTAL SUPPOSITORY RC SCH (21:08)
--- NOTE | 2016-04-04 09:32 | Palliative - Consult Note ---
Date of Encounter: 04/04/16 Time of Encounter: 09:20 - Assessment and Plan (1) Chronic back pain Current Visit: No Status: Acute Assessment and plan: Continue low dose iV Dilaudid PRN. Has only required x1 last 24 hours Qualifiers: Back pain location: back pain in unspecified location Back pain laterality : unspecified Qualified Code(s): M54.9 - Dorsalgia, unspecified; G89.29 - Other chronic pain (2) Uremic pruritus Current Visit: Yes Status: Acute Assessment and plan: Patient very drowsy after Benadryl. Will decrease to 6.25 and monitor. (3) Restlessness and agitation Current Visit: Yes Status: Acute Assessment and plan: Will have Haloperidol and Lorazepam available as needed and monitor. Adjust as needed. (4) Acute blood loss anemia Current Visit: No Status: Acute (5) Hepatic encephalopathy Current Visit: No Status: Resolved (6) Liver disease Current Visit: No Status: Acute (7) ESRD (end stage renal disease) Current Visit: No Status: Chronic Palliative-CN HPI - Data of Consult Patient: known to practice within the last 3 years Consult date: 04/04/16 Requesting Physician: Po Marcano MD [facility] - Consult Narrative History of present illness: Mr. Ponce is a 65 year old male well known to the palliative care team from previous hospital visits, admitted to [facility] yesterday r/t end stage liver and renal disease. 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 He went through extensive workup via the [place] for potential transplant and was actually transferred from [place] to [place] for evaluation from the transplant team. Family states his portal vein was not sufficient for grafting and he was discharged back home. Patient developed GI bleed and brought back to hospital. In conversations with patient and family, he decided to transition to comfort care, forego dialysis, and enter hospice. Last dialysis was Thursday and paracentesis performed yesterday. Platelet count was too low for placement of pleurx cath for intermittent drainage. He was transitioned to general inpt hospice yesterday for symptom management. Currently, pt is sleeping, he does awaken easily, but drifts back to sleep. Son and grandson at the bedside. He denies any pain. Had facial itching yesterday and receiving iv Benadryl, and family member states he has been asleep most of time since. CC: Po Marcano MD Past Med Surg Social Fam HX - Past Medical History Medical history: cirrhosis, liver disease, renal disease Psychiatric history: anxiety, depression, PTSD - Past Surgical History Surgical History: cholecystectomy, orthopedic, other, vasectomy - Social History Smoking Status: Unknown if ever smoked Smokeless Tobacco Status: No Alcohol use: none Drug use: none - Family History Mother Living Status: Hx Family Cardiac Disorders: Yes (chf) Father Living Status: Hx Family Endocrine Disorder: Yes (diabetes) Hx Family Neurologic Disorders: Yes (strokes, Alzheimers) Medications and Allergies Cholecalciferol (Vitamin D3) [Vitamin D3] 2,000 unit PO DAILY 01/08/15 [History] FLUoxetine HCl [Prozac] 20 mg PO QAM 01/08/15 [History] Allopurinol [Zyloprim 100 MG] 50 mg PO DAILY 03/01/15 [History] Calcium Acetate 1,334 mg PO TIDWM 06/19/15 [History] Cyclobenzaprine HCl 10 mg PO TID 06/19/15 [History] Aspirin 81 mg PO DAILY 10/09/15 [History] Ondansetron HCl [Zofran] 4 mg PO Q6H PRN 10/12/15 [History] Midodrine [ProAmatine] 10 mg PO 0800,1200,1700 #90 tablet 10/18/15 [Rx] Renal Vitamin [Renal Caps Softgel] 1 mg PO DAILY 12/27/15 [History] Rifaximin [Xifaxan] 550 mg PO BID #60 tablet 01/01/16 [Rx] Nateglinide [Starlix] 60 mg PO TIDWM 02/28/16 [History] Lactulose 30 gm PO BID 03/03/16 [History] Menthol/Camphor [Anti-Itch Lotion] 1 appl TP BID PRN 03/03/16 [History] Omeprazole [PriLOSEC] 40 mg PO DAILY 03/03/16 [History] Sucralfate [Carafate] 1 gm PO BID 03/03/16 [History] Hydrocortisone Acetate [Anucort-HC] 25 mg RC TID PRN 04/02/16 [History] Allergies Oxycodone Adverse Reaction (Verified 04/03/16 12:40) Confusion ROS unobtainable: due to mental status Palliative Care-Exam - Constitutional Vitals: Temp Pulse Resp BP Pulse Ox 98.3 F 76 16 78/37 96 04/03/16 20:05 04/03/16 20:05 04/03/16 20:05 04/03/16 20:05 04/03/16 20:05 General appearance: Present: mild distress (Secondary to abdominal pain ), no acute distress - Head Head Exam: Present: normal inspection, normocephalic - Eye Eye exam: Present: normal appearance, PERRL - Respiratory Respiratory exam: Present: decreased breath sounds, CTAB - Cardiovascular Cardiovascular exam: Present: +S1, +S2 - GI/Abdominal Exam GI/Abdominal exam: Present: distended, normal bowel sounds, soft - Extremities Exam Additional comments: Lower extremities with brownish discoloration - Neurological Exam Additional comments: Drowsy, does awaken easily. Oriented to person and place. Follows simple commands - Skin Skin exam: Present: dry, warm Consult Discharge Plan - Plan [facility]errals: [facility] [Primary Care Provider] - Palliative Quality Palliative Quality: Screen for Code Status: Yes, Screen for Goals of Care: Yes, Screen for Pain: Yes, If Pain Regimen Started, Initiate Bowel Regimen: Yes, Screen for Nausea/Vomitting: Yes Code Status: 04/03/16 09:35 Resuscitation Status: Active [RES] Stat Comment: Resuscitation Status: DNR-Comfort Care
[2016-04-04] MEDS: *HR* HYDROmorphone (PF) 1 MG/ML SYRINGE IVP PRN ×4 (11:03→19:56)
[2016-04-04] MEDS: Bisacodyl 10 MG RECTAL SUPPOSITORY RC SCH (19:56)
--- NOTE | 2016-04-05 09:16 | Palliative Progress Note ---
Date of Encounter: 04/05/16 Time of Encounter: 08:45 - Assessment and plan (1) Chronic back pain Current Visit: No Status: Acute Assessment and plan: Patient reports no pain or discomfort. Utilized 3 doses of IVP Dilaudid for comfort. Total 1.5mg. effective relief. Will cont to monitor. Qualifiers: Back pain location: back pain in unspecified location Back pain laterality : unspecified Qualified Code(s): M54.9 - Dorsalgia, unspecified; G89.29 - Other chronic pain (2) Uremic pruritus Current Visit: No Status: Acute Assessment and plan: Patient denies itching. Applied lotion to back and lower extremities for comfort. (3) Restlessness and agitation Current Visit: No Status: Acute Assessment and plan: No ativan needed in past 24 hrs. Patient resting comfortable. (4) Chronic kidney disease Current Visit: No Status: Acute Qualifiers: Chronic kidney disease stage: stage 4 (severe) Qualified Code(s): N18.4 - Chronic kidney disease, stage 4 (severe) - Time Spent With Patient Total time spent is greater than 50% in coordination of care (as documented) at patient's floor/unit and/or counseling patient: 25 - 35 minutes - Subjective Interval history: Patient in bed, resting quietly. Son at bedside. Patient awakens easy and denies any discomfort or needs. - Constitutional General appearance: Present: no acute distress - Head Head exam: Present: atraumatic - Eye Eye exam: Present: PERRL Pupils: Present: PERRL - ENT ENT exam: Present: mucous membranes moist - Neck Neck exam: Present: full ROM - Respiratory Respiratory exam: Present: CTAB - Cardiovascular Cardiovascular exam: Present: +S1, +S2 - Expanded Cardiovascular Exam Peripheral pulses: 1+: Femoral (L) PM, Femoral (R) PM, Posterior Tibialis (L), Posterior Tibialis (R), 2+: Carotid (L) PM, Carotid (R) PM, Radial (L), Radial ( R), Dorsalis Pedis (L) PM, Dorsalis Pedis (R) PM - GI/Abdominal GI/Abdominal exam: Present: distended, hypoactive bowel sounds, soft - Rectal Rectal exam: Present: deferred - Extremities Exam Extremities exam: Present: full ROM - Back Exam Back exam: Present: tenderness - Neurological Exam Neurological exam: Present: alert, CN II-XII intact, oriented X3 - Psychiatric Psychiatric exam: Present: normal affect - Skin Skin exam: Present: dry Palliative Quality Palliative Quality: Screen for Code Status: Yes, Screen for Goals of Care: Yes, Screen for Pain: Yes, If Pain Regimen Started, Initiate Bowel Regimen: Yes, Screen for Nausea/Vomitting: Yes Code Status: 04/03/16 09:35 Resuscitation Status: Active [RES] Stat Comment: Resuscitation Status: DNR-Comfort Care Consult Discharge Plan - Plan Referrals: [facility]P [Primary Care Provider] -
[2016-04-05] MEDS: *HR* HYDROmorphone (PF) 1 MG/ML SYRINGE IVP PRN ×3 (12:38→20:18)
[2016-04-05] MEDS: Bisacodyl 10 MG RECTAL SUPPOSITORY RC SCH (20:18)
[2016-04-06] MEDS: *HR* HYDROmorphone (PF) 1 MG/ML SYRINGE IVP PRN ×3 (02:07→22:40)
--- NOTE | 2016-04-06 09:19 | Palliative Progress Note ---
Date of Encounter: 04/06/16 Time of Encounter: 09:00 - Assessment and plan (1) Chronic back pain Current Visit: No Status: Acute Assessment and plan: Patient reports no pain or discomfort. Utilized 4 doses of IVP Dilaudid for comfort. Total 2.0mg. effective relief. Will cont to monitor. Qualifiers: Back pain location: back pain in unspecified location Back pain laterality : unspecified Qualified Code(s): M54.9 - Dorsalgia, unspecified; G89.29 - Other chronic pain (2) Uremic pruritus Current Visit: No Status: Acute Assessment and plan: Patient reports itching to feet and ankles. Applied lotion to back and lower extremities for comfort. (3) Restlessness and agitation Current Visit: No Status: Acute Assessment and plan: No ativan needed in past 24 hrs. Patient resting comfortable. Patient had a visit from his dogs for pet therapy. (4) Chronic kidney disease Current Visit: No Status: Acute Qualifiers: Chronic kidney disease stage: stage 4 (severe) Qualified Code(s): N18.4 - Chronic kidney disease, stage 4 (severe) - Time Spent With Patient Total time spent is greater than 50% in coordination of care (as documented) at patient's floor/unit and/or counseling patient: less than 15 minutes - Subjective Interval history: Patient in bed, resting quietly. and family at bedside. Patient awakens easy and denies any discomfort or needs. - Constitutional General appearance: Present: no acute distress - Head Head exam: Present: atraumatic - Eye Eye exam: Present: PERRL - ENT ENT exam: Present: mucous membranes moist - Neck Neck exam: Present: full ROM - Respiratory Respiratory exam: Present: CTAB - Cardiovascular Cardiovascular exam: Present: +S1, +S2 - GI/Abdominal GI/Abdominal exam: Present: distended, normal bowel sounds, soft - Rectal Rectal exam: Present: deferred - Extremities Exam Extremities exam: Present: full ROM - Back Exam Back exam: Present: full ROM - Neurological Exam Neurological exam: Present: alert, CN II-XII intact, oriented X3 - Psychiatric Psychiatric exam: Present: normal affect - Skin Skin exam: Present: dry, warm (cream applied to lower extremties for itching) Palliative Quality Palliative Quality: Screen for Code Status: Yes, Screen for Goals of Care: Yes, Screen for Pain: Yes, If Pain Regimen Started, Initiate Bowel Regimen: Yes, Screen for Nausea/Vomitting: Yes Code Status: 04/03/16 09:35 Resuscitation Status: Active [RES] Stat Comment: Resuscitation Status: DNR-Comfort Care Consult Discharge Plan - Plan Referrals: [facility],PCP [Primary Care Provider] -
[2016-04-06] MEDS: Loratadine 10 MG TABLET PO SCH (09:40)
[2016-04-06] MEDS: Capsaicin 0.025% 60 GM TUBE TP PRN (10:12)
[2016-04-06] MEDS: Bisacodyl 10 MG RECTAL SUPPOSITORY RC SCH (20:57)
[2016-04-07] MEDS: *HR* HYDROmorphone (PF) 1 MG/ML SYRINGE IVP PRN ×4 (10:48→23:16)
[2016-04-07] MEDS: Loratadine 10 MG TABLET PO SCH (12:37)
--- NOTE | 2016-04-07 12:53 | Palliative Progress Note ---
Date of Encounter: 04/07/16 Time of Encounter: 08:25 - Assessment and plan (1) Pain Current Visit: No Status: Acute Assessment and plan: Under good control at this time is requiring only 3 doses of Dilaudid in the last 24 hours. Continue to watch (2) Acute blood loss anemia Current Visit: No Status: Acute Assessment and plan: No further blood draws, no transfusions. (3) Constipation by delayed colonic transit Current Visit: No Status: Acute Assessment and plan: Will continue senna for as long as the patient can take by mouth, and then rely on suppositories. No changes today. (4) GI (gastrointestinal hemorrhage) Current Visit: No Status: Acute Assessment and plan: The patient has requested no further workup, we will therefore stop any further workup. No further blood draws, no transfusions. No outward signs of GI hemorrhage at this time, however we will not work it up any case. Qualifiers: GI bleed type/associated pathology: unspecified gastrointestinal hemorrhage type Qualified Code(s): K92.2 - Gastrointestinal hemorrhage, unspecified (5) Goals of care, counseling/discussion Current Visit: No Status: Acute Assessment and plan: DNR comfort care, patient has opted for general inpatient hospice status. The patient will be maintained on general hospice status due to his active GI bleed. I believe that he will be following a very steep dissent. Not believe that he will feel be adequately taking care of at home. We will require the services of an acute care hospital for symptomatic relief. (6) Ascites Current Visit: No Status: Chronic Assessment and plan: The patient had a last week. If it appears that he requires it again we will get an ultrasound to determine if there is no fluid to be tapped and then proceed with tap if needed. e. Qualifiers: Ascites type: other type Qualified Code(s): R18.8 - Other ascites (7) ESRD (end stage renal disease) on dialysis Current Visit: Yes Status: Chronic Assessment and plan: The patient has stopped dialysis at this time. His hospice diagnosis is end- stage renal disease which is secondary to exposure to Agent [place] during the [place] conflict. This is his terminal diagnosis. (8) Liver cirrhosis secondary to nonalcoholic steatohepatitis ([place]) Current Visit: No Status: Chronic Assessment and plan: The patient has end-stage liver disease. He was not deemed appropriate for transplant therefore he has opted for hospice care. Patient is now general inpatient hospice for symptomatic control. No further aggressive care will be done. - Time Spent With Patient Total time spent is greater than 50% in coordination of care (as documented) at patient's floor/unit and/or counseling patient: - Subjective Interval history: The patient continues to be on general inpatient hospice for end-of-life care, to management for the renal disease. The patient has now become responsive verbally though not having near as much trouble with itch or pain. She had 3 doses of Dilaudid yesterday IV required any Haldol or Ativan or Benadryl in the last 24 hours. - Constitutional General appearance: Present: no acute distress - Head Head exam: Present: atraumatic, normal inspection - Respiratory Respiratory exam: Present: decreased breath sounds - Cardiovascular Cardiovascular exam: Present: RRR - GI/Abdominal GI/Abdominal exam: Present: normal bowel sounds, soft. Absent: tenderness - Extremities Exam Extremities exam: Present: normal inspection. Absent: pedal edema, tenderness - Neurological Exam Neurological exam: Present: altered (Patient not responsive to verbal this morning he has been up until last night.) - Psychiatric Psychiatric exam: Absent: agitated, anxious - Skin Skin exam: Present: dry, warm Palliative Quality Palliative Quality: Screen for Code Status: Yes, Screen for Goals of Care: Yes, Screen for Pain: Yes, If Pain Regimen Started, Initiate Bowel Regimen: Yes, Screen for Nausea/Vomitting: Yes Code Status: 04/03/16 09:35 Resuscitation Status: Active [RES] Stat Comment: Resuscitation Status: DNR-Comfort Care Consult Discharge Plan - Plan Referrals: [facility] [Primary Care Provider] -
--- NOTE | 2016-04-07 16:34 | Event Note ---
Date of Encounter: 04/07/16 Time of Encounter: 16:33 Hospice senior medical billing specialist certification of terminal illness: Hospice benefit. Start: 04/03/2016 Hospice benefit. In: +90 days Palliative performance scale: 30% History: The patient has a history of agent orange exposure resulting in renal failure as well as liver failure. It is no longer eligible for any kind of transplant and has decided to stop all dialysis. The patient was completely dialysis dependent. As the patient longer wishes to have any further aggressive care for his liver failure and/or kidney failure, impaired with the fact that he has stopped all dialysis I find that These findings support a life expectancy of 6 months or less. I attest that I have compose the above narrative based on my review of the patient's medical records, and or on my examination of the patient. Po Marcano M.D. Associate quality engineer medical device. [facility]
[2016-04-07] MEDS: Bisacodyl 10 MG RECTAL SUPPOSITORY RC SCH (23:19)
[2016-04-08 04:56] VITALS: BP 142/81
[2016-04-08] MEDS: *HR* HYDROmorphone (PF) 1 MG/ML SYRINGE IVP PRN ×4 (06:20→20:29)
[2016-04-08] MEDS: Capsaicin 0.025% 60 GM TUBE TP PRN ×2 (10:12→15:32)
[2016-04-08] MEDS: Loratadine 10 MG TABLET PO SCH ×2 (10:12→11:04)
--- NOTE | 2016-04-08 12:41 | Palliative Progress Note ---
Date of Encounter: 04/08/16 Time of Encounter: 09:00 - Assessment and plan (1) Chronic back pain Current Visit: No Status: Acute Assessment and plan: Continue low dose IV Dilaudid and adjust as necessary. Received x5 last 24 hours. Daughter at bedside states that this has been effective. Monitor Qualifiers: Qualified Code(s): M54.9 - Dorsalgia, unspecified; G89.29 - Other chronic pain (2) Uremic pruritus Current Visit: No Status: Acute Assessment and plan: Continue low dose IV Diphenhydramine and capsaicin cream as needed. (3) Restlessness and agitation Current Visit: No Status: Acute Assessment and plan: Continue Haloperidol and lorazepam PRN. He slept most of day yesterday. Has not required the last 24 hours. (4) Acute blood loss anemia Current Visit: No Status: Acute (5) Hepatic encephalopathy Current Visit: No Status: Resolved (6) Liver disease Current Visit: No Status: Acute Assessment and plan: Abd firmly distended this am, however pt does not report pain/ discomfort or shortness of breath at this time. Monitor. Palliative paracentesis if needed but only for symptom distress at this time. (7) ESRD (end stage renal disease) Current Visit: No Status: Inactive - Time Spent With Patient Total time spent is greater than 50% in coordination of care (as documented) at patient's floor/unit and/or counseling patient: 25 - 35 minutes - Subjective Interval history: Patient awake and alert. Inappropriate statements at times. Attempts to answer questions, can follow simple commands. Denies any pain or shortness of breath. Patient denies itching - yet did observe him frequently scratching legs and face. Family at bedside. - Respiratory Respiratory exam: Present: decreased breath sounds, CTAB - Cardiovascular Cardiovascular exam: Present: irregular rhythm, systolic murmur - GI/Abdominal GI/Abdominal exam: Present: diminished bowel sounds, distended, firm - Extremities Exam Extremities exam: Present: normal capillary refill, normal inspection Additional comments: 1+ lower extremities edema bilaterally - Neurological Exam Additional comments: Oriented to name and place. Required reorientation to time and situation. Can follow simple commands. Palliative Quality Palliative Quality: Screen for Code Status: Yes, Screen for Goals of Care: Yes, Screen for Pain: Yes, If Pain Regimen Started, Initiate Bowel Regimen: Yes, Screen for Nausea/Vomitting: Yes Code Status: 04/03/16 09:35 Resuscitation Status: Active [RES] Stat Comment: Resuscitation Status: DNR-Comfort Care Consult Discharge Plan - Plan Referrals: [facility],PCP [Primary Care Provider] -
[2016-04-08] MEDS: Nystatin POWDER 30 GM BOTTLE TP SCH (16:21)
[2016-04-09] MEDS: *HR* HYDROmorphone (PF) 1 MG/ML SYRINGE IVP PRN (02:15)
[2016-04-09] MEDS: Bisacodyl 10 MG RECTAL SUPPOSITORY RC SCH ×2 (04:55→21:17)
[2016-04-09] MEDS: Nystatin POWDER 30 GM BOTTLE TP SCH ×4 (04:55→21:18)
--- NOTE | 2016-04-09 09:25 | Palliative Progress Note ---
Date of Encounter: 04/09/16 Time of Encounter: 09:15 - Assessment and plan (1) Chronic back pain Current Visit: No Status: Acute Assessment and plan: Continue low dose IV Dilaudid - utilized x5 last 24 hours. Qualifiers: Qualified Code(s): M54.9 - Dorsalgia, unspecified; G89.29 - Other chronic pain (2) Uremic pruritus Current Visit: No Status: Acute Assessment and plan: Continue topical lotion as well as IV Diphenhydramine PRN. Utilized x1 last 24 hours. (3) Restlessness and agitation Current Visit: No Status: Acute Assessment and plan: Continue IV Lorazepam and Haloperidol as needed. Utilized Lorazepam x1 last 24 hours. (4) Acute blood loss anemia Current Visit: No Status: Acute (5) Liver disease Current Visit: No Status: Acute - Time Spent With Patient Total time spent is greater than 50% in coordination of care (as documented) at patient's floor/unit and/or counseling patient: 25 - 35 minutes - Subjective Interval history: Patient sleeping - daughter at bedside states he has aroused little since yesterday. She reports he is having difficulty swallowing and even difficulty managing ice chips. He opens eyes with my assessment and drifts back to sleep. Denies discomfort at this time. - Constitutional General appearance: Present: no acute distress - Respiratory Respiratory exam: Present: CTAB - Cardiovascular Cardiovascular exam: Present: +S1, +S2, systolic murmur - GI/Abdominal GI/Abdominal exam: Present: distended, firm, hypoactive bowel sounds - Extremities Exam Extremities exam: Present: normal capillary refill, normal inspection Additional comments: 1+ bilateral lower extremity edema - Neurological Exam Additional comments: More lethargic last 24 hours. Confused when awake. - Skin Skin exam: Present: dry, warm Palliative Quality Palliative Quality: Screen for Code Status: Yes, Screen for Goals of Care: Yes, Screen for Pain: Yes, If Pain Regimen Started, Initiate Bowel Regimen: Yes, Screen for Nausea/Vomitting: Yes Code Status: 04/03/16 09:35 Resuscitation Status: Active [RES] Stat Comment: Resuscitation Status: DNR-Comfort Care Consult Discharge Plan - Plan Referrals: [facility],PCP [Primary Care Provider] -
[2016-04-09] MEDS: Loratadine 10 MG TABLET PO SCH (09:49)
[2016-04-10] MEDS: *HR* HYDROmorphone (PF) 1 MG/ML SYRINGE IVP PRN (02:49)
[2016-04-10] MEDS ORDERED: Bisacodyl 10 MG RECTAL SUPPOSITORY RC PRN (09:51)
--- NOTE | 2016-04-10 09:53 | Palliative Progress Note ---
Date of Encounter: 04/10/16 Time of Encounter: 09:50 - Assessment and plan (1) Chronic back pain Current Visit: No Status: Acute Assessment and plan: Continue Dilaudid for pain. Received x2 last 24 hours. Qualifiers: Qualified Code(s): M54.9 - Dorsalgia, unspecified; G89.29 - Other chronic pain (2) Uremic pruritus Current Visit: No Status: Acute Assessment and plan: Continue Benadryl PRN. Utilized x1 last 24 hours (3) Restlessness and agitation Current Visit: No Status: Acute Assessment and plan: Continue Haldol/Ativan PRN. Has not utilized last 24 hours. (4) Acute blood loss anemia Current Visit: No Status: Acute (5) Liver disease Current Visit: No Status: Acute - Time Spent With Patient Total time spent is greater than 50% in coordination of care (as documented) at patient's floor/unit and/or counseling patient: 25 - 35 minutes - Subjective Interval history: Patient sleeping on my arrival. Awakens easily. Denies any pain or discomfort. On room air, and states breathing well. Abd firm and distended - pt denies this is causing him distress. Ate 1/2 doughnut this am. - Constitutional General appearance: Present: no acute distress - Expanded Respiratory Exam Location: rales: Left, Right, Lower - Cardiovascular Cardiovascular exam: Present: +S1, +S2, systolic murmur - GI/Abdominal GI/Abdominal exam: Present: diminished bowel sounds, distended, firm - Extremities Exam Extremities exam: Present: normal capillary refill, normal inspection - Neurological Exam Neurological exam: Present: alert Additional comments: Can follow simple commands. Some periods of confusion noted per daughter. Palliative Quality Palliative Quality: Screen for Code Status: Yes, Screen for Goals of Care: Yes, Screen for Pain: Yes, If Pain Regimen Started, Initiate Bowel Regimen: Yes, Screen for Nausea/Vomitting: Yes Code Status: 04/03/16 09:35 Resuscitation Status: Active [RES] Stat Comment: Resuscitation Status: DNR-Comfort Care Consult Discharge Plan - Plan Referrals: [facility] [Primary Care Provider] -
[2016-04-10] MEDS: Nystatin POWDER 30 GM BOTTLE TP SCH ×3 (10:43→21:52)
[2016-04-10] MEDS: Loratadine 10 MG TABLET PO SCH (10:45)
[2016-04-10] MEDS: Lactulose Oral Soln 20 GM/30 ML UDC PO SCH ×2 (10:45→21:47)
[2016-04-10] MEDS ORDERED: *HR* LORazepam Oral Conc 2 MG/ML PO PRN (13:17)
[2016-04-10] MEDS: OxyCODONE CONC 5 MG/0.25 ML ORAL.SYG PO PRN (13:36)
--- NOTE | 2016-04-10 14:48 | Event Note ---
Date of Encounter: 04/10/16 Time of Encounter: 14:25 IV access has been lost. Will transition to oral medications and will need to adjust and evaluate doses to ensure pt has adequate symptom control. D/W primary nurse and Hospice nurse Marilia Mooney.
[2016-04-11] MEDS: OxyCODONE CONC 5 MG/0.25 ML ORAL.SYG PO PRN ×3 (04:07→17:24)
[2016-04-11] MEDS: Atropine Sulfate 1% 40 DROP/2 ML BOTTLE SL PRN (06:34)
--- NOTE | 2016-04-11 09:06 | Palliative Progress Note ---
Date of Encounter: 04/11/16 Time of Encounter: 09:00 - Assessment and plan (1) Chronic back pain Current Visit: No Status: Acute Assessment and plan: Will schedule Oxycodone for comfort as he is close to the end of life, and had restless night. PRN doses additionally if needed Qualifiers: Qualified Code(s): M54.9 - Dorsalgia, unspecified; G89.29 - Other chronic pain (2) Uremic pruritus Current Visit: No Status: Acute Assessment and plan: Appears to not be an issue at this point. Scratching has ceased. Continue topical treatment if needed and liquid diphenhydramine (3) Restlessness and agitation Current Visit: No Status: Acute Assessment and plan: Will schedule Lorazepam and monitor to keep him comfortable and help with restlessness. (4) Acute blood loss anemia Current Visit: No Status: Acute (5) Liver disease Current Visit: No Status: Acute - Time Spent With Patient Total time spent is greater than 50% in coordination of care (as documented) at patient's floor/unit and/or counseling patient: 25 - 35 minutes - Subjective Interval history: Patient with mental status changes overnight. Minimally responsive this am. Opens eyes but no verbal response. increasing jaundice. Some brief periods of apnea, irregular apical and increasing upper airway congestion. Family at bedside and aware of changes. Informed them he may pass within the next 24-48 hours. Not stable for transfer to another facility at this point. - Constitutional General appearance: Present: no acute distress - Respiratory Additional comments: Some scattered rhonchi. Shallow respiration effort - Cardiovascular Cardiovascular exam: Present: irregular rhythm, systolic murmur - GI/Abdominal GI/Abdominal exam: Present: diminished bowel sounds, distended, firm - Extremities Exam Extremities exam: Present: normal capillary refill, normal inspection Additional comments: 1-2+ bilateral lower extremity edema - Neurological Exam Neurological exam: Present: altered Additional comments: minimally responsive, opens eyes with assessment. No verbal response, unable to follow commands. - Skin Skin exam: Present: dry, warm Additional comments: Jaundiced. Palliative Quality Palliative Quality: Screen for Code Status: Yes, Screen for Goals of Care: Yes, Screen for Pain: Yes, If Pain Regimen Started, Initiate Bowel Regimen: Yes, Screen for Nausea/Vomitting: Yes Code Status: 04/03/16 09:35 Resuscitation Status: Active [RES] Stat Comment: Resuscitation Status: DNR-Comfort Care Consult Discharge Plan - Plan [facility]errals: [facility] [Primary Care Provider] -
[2016-04-11] MEDS: OxyCODONE CONC 5 MG/0.25 ML ORAL.SYG PO SCH ×2 (09:43→13:22)
[2016-04-11] MEDS: *HR* LORazepam Oral Conc 2 MG/ML PO SCH ×3 (09:43→22:02)
[2016-04-11] MEDS: Nystatin POWDER 30 GM BOTTLE TP SCH ×3 (09:47→22:02)
[2016-04-11] MEDS ORDERED: *HR* FentaNYL PATCH 25 MCG PATCH TD SCH (17:00)
[2016-04-11] MEDS: Loratadine 10 MG TABLET PO SCH (17:12)
[2016-04-11] MEDS: Lactulose Oral Soln 20 GM/30 ML UDC PO SCH (17:12)
[2016-04-12] MEDS: *HR* LORazepam Oral Conc 2 MG/ML PO SCH ×4 (03:15→17:59)
[2016-04-12] MEDS: OxyCODONE CONC 5 MG/0.25 ML ORAL.SYG PO PRN ×6 (05:07→19:11)
[2016-04-12] MEDS: Atropine Sulfate 1% 40 DROP/2 ML BOTTLE SL PRN ×4 (07:16→23:07)
[2016-04-12] MEDS ORDERED: *HR* LORazepam Oral Conc 2 MG/ML SL PRN (07:27)
[2016-04-12] MEDS: Nystatin POWDER 30 GM BOTTLE TP SCH ×3 (08:35→21:59)
--- NOTE | 2016-04-12 09:06 | Palliative Progress Note ---
Date of Encounter: 04/12/16 Time of Encounter: 07:10 - Assessment and plan (1) Pain Current Visit: No Status: Acute Assessment and plan: Under good control at this time I did increase the liquid oxycodone to 10 mg, urine hourly since an increase from 5 mg previous. (2) Acute blood loss anemia Current Visit: No Status: Acute Assessment and plan: No further blood draws, no transfusions. (3) Constipation by delayed colonic transit Current Visit: No Status: Acute Assessment and plan: Will utilize suppositories. (4) GI (gastrointestinal hemorrhage) Current Visit: No Status: Acute Assessment and plan: The patient has requested no further workup, we will therefore stop any further workup. No further blood draws, no transfusions. No outward signs of GI hemorrhage at this time, however we will not work it up any case. No changes on this. Qualifiers: Qualified Code(s): K92.2 - Gastrointestinal hemorrhage, unspecified (5) Goals of care, counseling/discussion Current Visit: No Status: Acute Assessment and plan: DNR comfort care, patient has opted for general inpatient hospice status. The patient will be maintained on general hospice status due to his active GI bleed. I believe that he will be following a very steep dissent. Not believe that he will feel be adequately taking care of at home. We will require the services of an acute care hospital for symptomatic relief. At this time the patient is clinically unstable and I believe that he is entering active phase dying. Therefore he will remain on the general inpatient service. (6) Ascites Current Visit: No Status: Chronic Assessment and plan: He is distended at this time but when last he was awake he did not wish to have a tap done and at this point I do not think it will make any difference. We will hold on this for now.. Qualifiers: Qualified Code(s): R18.8 - Other ascites (7) ESRD (end stage renal disease) on dialysis Current Visit: Yes Status: Chronic Assessment and plan: The patient has stopped dialysis at this time. His hospice diagnosis is end- stage renal disease which is secondary to exposure to Agent [place] during the [place] conflict. This is his terminal diagnosis. (8) Liver cirrhosis secondary to nonalcoholic steatohepatitis ([place]) Current Visit: No Status: Chronic - Time Spent With Patient Total time spent is greater than 50% in coordination of care (as documented) at patient's floor/unit and/or counseling patient: - Subjective Interval history: The patient continues to be on general inpatient hospice for end-of-life care, to management for the renal disease. He is now much less responsive than he has been. And has become far more restless. Medications are still effective. However the patient is in very rapid decline at this time. - Constitutional General appearance: Present: no acute distress - Head Head exam: Present: atraumatic, normal inspection, normocephalic - Eye Eye exam: Present: normal appearance - ENT ENT exam: Present: mucous membranes moist - Respiratory Respiratory exam: Present: decreased breath sounds - Cardiovascular Cardiovascular exam: Present: RRR, tachycardia - GI/Abdominal GI/Abdominal exam: Present: distended, firm, hypoactive bowel sounds. Absent: tenderness - Extremities Exam Extremities exam: Present: normal inspection. Absent: pedal edema, tenderness - Neurological Exam Neurological exam: Present: altered - Psychiatric Psychiatric exam: Absent: agitated, anxious - Skin Skin exam: Present: dry, warm. Absent: mottled Palliative Quality Palliative Quality: Screen for Code Status: Yes, Screen for Goals of Care: Yes, Screen for Pain: Yes, If Pain Regimen Started, Initiate Bowel Regimen: Yes, Screen for Nausea/Vomitting: Yes Code Status: 04/03/16 09:35 Resuscitation Status: Active [RES] Stat Comment: Resuscitation Status: DNR-Comfort Care Consult Discharge Plan - Plan [facility]errals: [facility] [Primary Care Provider] -
[2016-04-13] MEDS: Atropine Sulfate 1% 40 DROP/2 ML BOTTLE SL PRN (00:06)
[2016-04-13] MEDS: *HR* LORazepam Oral Conc 2 MG/ML PO SCH ×2 (04:02→09:07)
[2016-04-13] MEDS ORDERED: Scopolamine Patch 1.5 MG PATCH.TD72 TD SCH (07:30)
[2016-04-13] MEDS: Nystatin POWDER 30 GM BOTTLE TP SCH (09:12)
[2016-04-13] MEDS: OxyCODONE CONC 5 MG/0.25 ML ORAL.SYG PO PRN (12:36)
--- NOTE | 2016-04-13 13:46 | Death Note ---
Discharge Sum: Summary - Date and Time Date of admission: 04/03/16 11:44 Date of : 04/13/16 Time of : 13:05 - Summary Details: The patient was brought onto the general inpatient service for of life care and symptomatic care for him as he had end-stage liver disease and end-stage renal disease. A renal diseases directly tied to agent orange exposure during the [place] conflict. Patient was kept comfortable on the GIP service for a while but then passed quietly and comfortably today at 1305 hrs. with family present. Cause of is end-stage renal disease, renal failure secondary to agent orange exposure. Morbidities liver failure, anemia, recent GI bleed, Unknown if he ever smoked. - Additional Data Confirmation of as documented by pronouncing clinician: no pulse, no respirations, no heart sounds Family: at bedside Attending/PCP notified?: Yes Attending physician: Po Marcano MD Was code activated?: No Autopsy requested?: No finished yarn examiner notified?: No Organ bank notified?: Yes Advance directives: Yes Hospice patient?: Yes Discharge Sum: Diag - PCOD Probable Cause of : Respiratory arrest Discharge Sum: Prov - Provider [facility] care physician: [facility] Consults: 04/03/16 09:35 Consult to Palliative Care [CONS] Routine Comment: Consulting Provider: Palliative Care Emy
== END 2016-04-13 16:45 | disposition expired | DRG 699 ==
LOC: 2ANU 11:44
PROVIDERS: ADMIT Family Medicine Hospice and Palliative Medicine; ATTEND Family Medicine Hospice and Palliative Medicine